=== PATIENT | female | born 1940 | race Caucasian/White ===

== ENCOUNTER → 2016-07-03 | Outpatient (CLI) | payer OTHER, MEDICARE | END | disposition home or self-care (01) | LOC: C.MAMM 08:20 | PROVIDERS: ATTEND Internal Medicine | DX: M85.80 Other specified disorders of bone density and structure, unspecified site (principal) ==

== ENCOUNTER → 2016-12-07 | Outpatient (CLI) | payer OTHER, MEDICARE ==
[2016-12-07 09:55] LABS: ALT/SGPT 23 U/L (12-78); AST/SGOT 22 U/L (15-37); BLOOD UREA NITROGEN 16 mg/dl (7-18); BUN/CREATININE RATIO 19.9 (10-20); CALCIUM 9.4 mg/dl (8.5-10.1); CARBON DIOXIDE 24 mmol/L (21-32); CHLORIDE 112 mmol/L (98-107); CHOLESTEROL 247 mg/dl (0-200); CREATININE 0.82 mg/dl (0.60-1.20); GLUCOSE 93 mg/dl (70-99); SODIUM 145 mmol/L (136-145); TRIGLYCERIDES 82 mg/dl (0-150); VERY LOW DENSITY LIPOPROT CALC 16 mg/dl
[2016-12-07 09:59] LABS: ALB/GLOB RATIO 1.2 (0.9-2); ALKALINE PHOSPHATASE 61 U/L (45-117); CHOLESTEROL/HDL RATIO 3.3; HDL CHOLESTEROL 76 mg/dl; LDL CHOLESTEROL CALCULATED 155 mg/dl
== END | disposition home or self-care (01) ==
LOC: C.LAB1850 07:21
PROVIDERS: ATTEND Internal Medicine
DX: E78.5 Hyperlipidemia, unspecified (principal)

== ENCOUNTER → 2017-05-06 | Outpatient (CLI) | payer OTHER, MEDICARE ==
[2017-05-06 10:35] LABS: ALT/SGPT 23 U/L (12-78); AST/SGOT 22 U/L (15-37); BLOOD UREA NITROGEN 13 mg/dl (7-18); BUN/CREATININE RATIO 16.7 (10-20); CALCIUM 9.4 mg/dl (8.5-10.1); CARBON DIOXIDE 28 mmol/L (21-32); CHLORIDE 105 mmol/L (98-107); CHOLESTEROL 253 mg/dl (0-200); CREATININE 0.78 mg/dl (0.60-1.20); GLUCOSE 91 mg/dl (70-99); POTASSIUM 3.7 mmol/L (3.5-5.1); SODIUM 142 mmol/L (136-145); TRIGLYCERIDES 174 mg/dl (0-150); VERY LOW DENSITY LIPOPROT CALC 35 mg/dl
[2017-05-06 10:37] LABS: ALKALINE PHOSPHATASE 67 U/L (45-117); CHOLESTEROL/HDL RATIO 3.5; HDL CHOLESTEROL 73 mg/dl; LDL CHOLESTEROL CALCULATED 145 mg/dl
== END | disposition home or self-care (01) ==
LOC: C.LAB1850 07:20
PROVIDERS: ATTEND Internal Medicine
DX: E78.5 Hyperlipidemia, unspecified (principal); Z00.00 Encounter for general adult medical examination without abnormal findings

== ENCOUNTER → 2017-05-09 | Outpatient (CLI) | payer OTHER, MEDICARE ==
[~2017-05-09] MED LIST: GADAVIST IV PRN
--- NOTE | 2017-05-09 12:06 | DIAGNOSTIC IMAGING REPORT ---
MRI OF THE BRAIN WITHOUT AND WITH IV CONTRAST CLINICAL HISTORY: HEADACHE, NECK PAIN HISTORY OF SMALL ANEURYSM. COMPARISON STUDY: MR angiography of the head dated 08/09/2015 TECHNIQUE: MRI of the brain was performed from the vertex to the skull base utilizing various T1 and T2 weighted sequences. Following the IV administration of 5 mL of Gadavist contrast, additional enhanced images were obtained. FINDINGS: Sagittal T1, axial diffusion, proton density and T2 weighted axial, coronal FLAIR, and pre and post axial T1-weighted images were acquired. These were supplemented with post gadolinium coronal T1 weighted images. No intra or extra-axial mass lesions are visualized. Axial diffusion-weighted images reveal no evidence of acute or subacute infarction. There is no evidence of ventricular dilatation. Proton density T2-weighted and FLAIR images reveal scattered foci of increased T2 signal within the white matter, likely on a small vessel basis. There are no abnormal flow voids. There is no evidence of pathologic enhancement. IMPRESSION: 1. No acute intracranial findings 2. No evidence of acute or subacute infarction 3. No evidence of intracranial mass 4. Scattered foci of increased T2 signal within the white matter likely a small vessel basis Electronically signed by: Shawn Ortega M.D. 05/09/2017 12:05 PM Dictated Date/Time: 05/09/2017 12:03 PM
--- NOTE | 2017-05-09 12:18 | DIAGNOSTIC IMAGING REPORT ---
C-SPINE ROUTINE 4 OR 5 VIEWS CLINICAL HISTORY: HEADACHE, NECK PAIN COMPARISON STUDY: None FINDINGS: No fractures or subluxations are visualized. There are mild to moderate multilevel degenerative changes with disc space narrowing most pronounced the C4-5 through C6-7 levels. There is mild uncinate spurring with mild multilevel foraminal encroachment. IMPRESSION: 1. No fractures or subluxations identified 2. Multilevel degenerative change Electronically signed by: Shawn Ortega M.D. 05/09/2017 12:16 PM Dictated Date/Time: 05/09/2017 12:16 PM
== END | disposition home or self-care (01) ==
LOC: C.MRIBC 10:42
PROVIDERS: ATTEND Physician Assistant
DX: R51 Headache (principal); M54.2 Cervicalgia; M89.8X8 Other specified disorders of bone, other site

== ENCOUNTER 2017-06-29 15:31 | Emergency (ER) | payer OTHER, MEDICARE ==
[~2017-06-29] VITALS: Ht 154.9 cm; Wt 55.6 kg
[2017-06-29 15:40] VITALS: TEMP 37; Ht 154.9 cm; Wt 55.6 kg
[2017-06-29] MEDS ORDERED: SODIUM CHLORIDE 0.9% 1000ML 1,000 ML IV STA (15:50)
[2017-06-29] MEDS ORDERED: ALBUT/IPRATROP 3MG/0.5MG NEB 3 ML VIAL INH STA (15:50)
--- NOTE | 2017-06-29 16:05 | EMERGENCY ROOM VISIT NOTE ---
History Report prepared by Jayme: Kathy Landa Under the Supervision of: Dr. Tahir Menendez M.D. First contact with patient: 15:45 Chief Complaint: RESPIRATORY PROBLEMS Stated Complaint: CHEST INFECTION, COPD History of Present Illness The patient is a 76 year old female who presents to the Emergency Room with complaints of constant cough and chest congestion beginning two days ago. The patient has been caring for her who currently has bacterial pneumonia. She notes fatigue but denies any chest tightness or diarrhea. The patient has a history of COPD. The patient has a back up Z-pack which she started yesterday. The patient also reports taking Lexapro and Mucinex for her symptoms. The patient states she was never a smoker but her was. She denies any recent prednisone use. The patient states her COPD is well controlled. The patient has a history of breast cancer which she has been in remission for 5 years. The patient's cancer was treated using surgery and radiation therapy. Source of History: patient Onset: two days ago Position: other (generalized) Quality: other (cough and chest congestion) Timing: constant Associated Symptoms: + cough, + fatigue, No fevers, No chest pain Review of Systems See HPI for pertinent positives and negatives. A total of ten systems were reviewed and were otherwise negative. Past Medical & Surgical Medical Problems: (1) Breast cancer (2) COPD (chronic obstructive pulmonary disease) Family History Patient reports no known family medical history. Social History Smoking Status: Never Smoker Marital Status: Housing Status: lives with significant other Occupation Status: retired Current/Historical Medications Scheduled Aspirin (Aspirin Ec), 81 MG PO Q2D Azithromycin (Zithromax Z-Jonel), 1 PKT PO UD Cholecalciferol (Vitamin D 1000 Unit), 1,000 INTER.UNIT PO Q2D Escitalopram (Lexapro), 10 MG PO DAILY Fish Oil (Ethel-3), 1 CAP PO DAILY Prednisone (Prednisone), 3 TAB PO DAILY Ranitidine Hcl (Zantac), 150 MG PO HS Sumatriptan Succinate (Imitrex), 100 MG PO PRN Scheduled PRN Diclofenac Sodium (Topical) (Voltaren 1% Top Gel), 1 APPLN TOP BID PRN for Pain Probiotic Product (Probiotic), 1 CAP PO DAILY PRN for SICKNESS [Proair], 2 PUFF INH Q4 PRN for SOB/Wheezing Allergies Coded Allergies: Sulfa Antibiotics (Verified Allergy, Severe, ITCHY, CAN'T SLEEP, 06/29/17) Physical Exam Vital Signs Date Time Temp Pulse Resp B/P (MAP) Pulse Ox O2 Delivery O2 Flow Rate FiO2 06/29/17 18:26 73 20 166/81 95 06/29/17 16:57 77 16 171/93 95 Room Air 06/29/17 16:15 94 Room Air 06/29/17 16:12 72 06/29/17 15:40 37.0 90 18 178/96 96 Room Air Physical Exam GENERAL: Awake, alert, well-appearing, in no distress HENT: Normocephalic, atraumatic. Oropharynx unremarkable. Dry MM. EYES: Normal conjunctiva. Sclera non-icteric. NECK: Supple. No nuchal rigidity. FROM. No JVD. RESPIRATORY: Scant wheezing in right base but otherwise clear. CARDIAC: Regular rate, normal rhythm. Extremities warm and well perfused. Pulses equal. ABDOMEN: Soft, non-distended. No tenderness to palpation. No rebound or guarding. No masses. RECTAL: Deferred. MUSCULOSKELETAL: Chest examination reveals no tenderness. The back is symmetrical on inspection without obvious abnormality. There is no CVA tenderness to palpation. No joint edema. LOWER EXTREMITIES: Calves are equal size bilaterally and non-tender. No edema. No discoloration. NEURO: Normal sensorium. No sensory or motor deficits noted. SKIN: No rash or jaundice noted. Medical Decision & Procedures ER Provider Diagnostic Interpretation: Radiology results as stated below per my review and radiologist interpretation: CHEST ONE VIEW PORTABLE FINDINGS: The heart is at the upper limits of normal in size. There is a thoracolumbar scoliosis. There is no failure. There is no focal pulmonary consolidation. There are no pleural effusions. There is a calcified left upper lobe granuloma. There are surgical clips projected over the left breast.[ IMPRESSION: No active disease in the chest. Electronically signed by: Shawn Ortega M.D. Laboratory Results 06/29/17 16:10 Red Blood Count 4.71, Mean Corpuscular Volume 95.3, Mean Corpuscular Hemoglobin 32.3, Mean Corpuscular Hemoglobin Concent 33.9, Mean Platelet Volume 10.8, Neutrophils (%) (Auto) 71.5, Lymphocytes (%) (Auto) 15.5, Monocytes (%) (Auto) 10.2, Eosinophils (%) (Auto) 1.8, Basophils (%) (Auto) 0.8, Neutrophils # (Auto ) 3.65, Lymphocytes # (Auto) 0.79, Monocytes # (Auto) 0.52, Eosinophils # (Auto ) 0.09, Basophils # (Auto) 0.04 06/29/17 16:10 Test 06/29/17 16:10 06/29/17 16:24 White Blood Count 5.10 K/uL (4.8-10.8) Red Blood Count 4.71 M/uL (4.2-5.4) Hemoglobin 15.2 g/dL (12.0-16.0) Hematocrit 44.9 % (37-47) Mean Corpuscular Volume 95.3 fL (80-100) Mean Corpuscular Hemoglobin 32.3 pg (25-34) Mean Corpuscular Hemoglobin Concent 33.9 g/dl (32-36) Platelet Count 144 K/uL (130-400) Mean Platelet Volume 10.8 fL (7.4-10.4) Neutrophils (%) (Auto) 71.5 % Lymphocytes (%) (Auto) 15.5 % Monocytes (%) (Auto) 10.2 % Eosinophils (%) (Auto) 1.8 % Basophils (%) (Auto) 0.8 % Neutrophils # (Auto) 3.65 K/uL (1.4-6.5) Lymphocytes # (Auto) 0.79 K/uL (1.2-3.4) Monocytes # (Auto) 0.52 K/uL (0.11-0.59) Eosinophils # (Auto) 0.09 K/uL (0-0.5) Basophils # (Auto) 0.04 K/uL (0-0.2) RDW Standard Deviation 48.1 fL (36.4-46.3) RDW Coefficient of Variation 13.8 % (11.5-14.5) Immature Granulocyte % (Auto) 0.2 % Immature Granulocyte # (Auto) 0.01 K/uL (0.00-0.02) Anion Gap 6.0 mmol/L (3-11) Est Creatinine Clear Calc Drug Dose 38.2 ml/min Estimated GFR () 68.7 Estimated GFR (Non- 59.3 BUN/Creatinine Ratio 12.9 (10-20) Calcium Level 9.1 mg/dl (8.5-10.1) Total Bilirubin 0.4 mg/dl (0.2-1) Direct Bilirubin < 0.1 mg/dl (0-0.2) Aspartate Amino Transf (AST/SGOT) 19 U/L (15-37) Alanine Aminotransferase (ALT/SGPT) 22 U/L (12-78) Alkaline Phosphatase 73 U/L (45-117) Troponin I < 0.015 ng/ml (0-0.045) Total Protein 7.7 gm/dl (6.4-8.2) Albumin 3.7 gm/dl (3.4-5.0) Lipase 183 U/L (73-393) Influenza Type A (RT-PCR) Neg for Influ A (NEG) Influenza Type A Antigen Neg for Influ A (NEG) Influenza Type B Antigen Neg for Influ B (NEG) Influenza Type B (RT-PCR) Neg for Influ B (NEG) Laboratory results reviewed by me Medications Administered Medications (Trade) Dose Ordered Sig/Mary Ann Route Start Time Stop Time Status Last Admin Dose Admin Albuterol/ Ipratropium (Duoneb) 3 ml NOW STAT INH 06/29/17 15:50 06/29/17 15:56 DC 06/29/17 16:23 3 ML Prednisone (PredniSONE TAB) 60 mg NOW STAT PO 06/29/17 15:50 06/29/17 15:56 DC 06/29/17 16:21 60 MG ED Course 1548: The patient was evaluated in room C9. A complete history and physical exam was performed. 1550: Ordered Prednisone 60 mg PO, Duoneb 3 ml INH, Sodium Chloride 1000 ml @ 999 mls/hr IV. 1725: The patient is resting comfortably. 1817: I reevaluated the patient. Discussed results and discharge instructions: She verbalized understanding and agreement. The patient is ready for discharge. Medical Decision I reviewed the patient's past medical history, medications, and the nursing notes as described above. Differential diagnoses include: pneumonia, bronchitis, COPD, ACS, PE, URI influenza, viral syndrome. The patient is a 76-year-old woman with a past medical history of COPD who presents emergency department with cough congestion per hpi. Arrival the patient is relatively well-appearing, no acute distress, afebrile stable vital signs. On exam the patient has scant wheeze to the right base but otherwise clear. Chest x-ray negative. Abdomen otherwise unremarkable including WBC within normal limits and influenza screen negative. Feeling improved by single neb. Thus, we'll treat with a course of prednisone and patient will continue her current azithromycin. Findings and plan for follow-up reviewed with patient. Patient agreeable and d/c'd per discharge instructions. Medication Reconcilliation Current Medication List: was personally reviewed by me Blood Pressure Screening Patient's blood pressure: Elevated blood pressure Blood pressure disposition: Elevated BP felt to be situational Impression Primary Impression: Bronchitis Scribe Attestation The scribe's documentation has been prepared under my direction and personally reviewed by me in its entirety. I confirm that the note above accurately reflects all work, treatment, procedures, and medical decision making performed by me. Departure Information Dispostion Home / Self-Care Prescriptions Prednisone (Prednisone) 20 Mg Tab 3 TAB PO DAILY for 4 Days, #12 TAB FOR 4 DAYS Prov: Tahir Menendez M.D. 06/29/17 Referrals RV. Mathur MD (PCP) Forms HOME CARE DOCUMENTATION FORM, IMPORTANT VISIT INFORMATION, WORK / SCHOOL INSTRUCTIONS Patient Instructions ED Bronchitis Asthmatic, My [facility] Additional Instructions Please follow up with your primary care physician in the next 1-3 days for re- evaluation. You likely have a bronchitis. Otherwise, your exam, EKG, chest xray, and lab results did not show signs of an emergent condition at this time. Prednisone as directed. Continue your azithromycin as prescribed. Use your inhaler 2 puffs every 4 hours as needed for cough. Of note your initial flu screen was negative, however, a reflex test is pending and if positive you will receive a phone call. Return to the emergency department for worsening symptoms as described in the accompanying instructions.
[2017-06-29 16:15] VITALS: O2SAT 94
[2017-06-29 16:26] LABS: BASO % 0.8 %; BASO ABS # 0.04 K/uL (0-0.2); EOS % 1.8 %; EOS ABS # 0.09 K/uL (0-0.5); HEMATOCRIT 44.9 % (37-47); HEMOGLOBIN 15.2 g/dL (12.0-16.0); IG# 0.01 K/uL (0.00-0.02); LYMPH % 15.5 %; LYMPH ABS # 0.79 K/uL (1.2-3.4); MEAN CELL VOLUME 95.3 fL (80-100); MEAN CORPUSCULAR HEMOGLOBIN 32.3 pg (25-34); MEAN CORPUSCULAR HGB CONC 33.9 g/dl (32-36); MEAN PLATELET VOLUME 10.8 fL (7.4-10.4); MONO % 10.2 %; MONO ABS # 0.52 K/uL (0.11-0.59); NEUT % 71.5 %; NEUT ABS # 3.65 K/uL (1.4-6.5); PLATELET COUNT 144 K/uL (130-400); RED CELL DISTRIBUTION WIDTH CV 13.8 % (11.5-14.5); RED CELL DISTRIBUTION WIDTH SD 48.1 fL (36.4-46.3)
--- NOTE | 2017-06-29 16:42 | DIAGNOSTIC IMAGING REPORT ---
CHEST ONE VIEW PORTABLE CLINICAL HISTORY: Atypical chest pain COMPARISON STUDY: No previous studies for comparison. FINDINGS: The heart is at the upper limits of normal in size. There is a thoracolumbar scoliosis. There is no failure. There is no focal pulmonary consolidation. There are no pleural effusions. There is a calcified left upper lobe granuloma. There are surgical clips projected over the left breast.[ IMPRESSION: No active disease in the chest. Electronically signed by: Shawn Ortega M.D. 06/29/2017 4:40 PM Dictated Date/Time: 06/29/2017 4:40 PM
[2017-06-29 16:48] LABS: ALBUMIN 3.7 gm/dl (3.4-5.0); ALT/SGPT 22 U/L (12-78); AST/SGOT 19 U/L (15-37); BLOOD UREA NITROGEN 12 mg/dl (7-18); CALCIUM 9.1 mg/dl (8.5-10.1); CARBON DIOXIDE 28 mmol/L (21-32); CREATININE 0.93 mg/dl (0.60-1.20); GLUCOSE 105 mg/dl (70-99); LIPASE 183 U/L (73-393); POTASSIUM 3.4 mmol/L (3.5-5.1); SODIUM 140 mmol/L (136-145)
[2017-06-29 16:53] LABS: ALKALINE PHOSPHATASE 73 U/L (45-117); TOTAL PROTEIN 7.7 gm/dl (6.4-8.2)
[2017-06-29] MEDS ORDERED: AZITTAB PO (16:57)
[2017-06-29] MEDS ORDERED: CHOL100027 PO (16:57)
[2017-06-29] MEDS ORDERED: RANI150T3 PO (16:57)
[2017-06-29] MEDS ORDERED: PROAIR INH (16:57)
[2017-06-29] MEDS ORDERED: OMEG10007 PO (16:57)
[2017-06-29] MEDS ORDERED: ESCI10TA17 PO (16:57)
[2017-06-29] MEDS ORDERED: MISCCAP80 PO (16:57)
[2017-06-29] MEDS ORDERED: ASPI81TA28 PO (16:57)
[2017-06-29] MEDS ORDERED: SUMA100T16 PO (16:57)
[2017-06-29] MEDS ORDERED: DICL1GEL12 TOP (16:57)
[2017-06-29 17:13] LABS: INFLUENZA B ANTIGEN Neg for Influ B (NEG)
[2017-06-29] MEDS ORDERED: PRED20TA PO (18:03)
[2017-06-29 18:26] VITALS: BP 166/81; PULSE 73; O2SAT 95
[2017-06-29 18:32] LABS: INFLUENZA A PCR Neg for Influ A (NEG); INFLUENZA B PCR Neg for Influ B (NEG)
== END 2017-06-29 18:25 | disposition home or self-care (01) ==
LOC: C.EDB 15:32 → C.EDC 18:25
DX: J40 Bronchitis, not specified as acute or chronic (principal); J44.9 Chronic obstructive pulmonary disease, unspecified; Z85.3 Personal history of malignant neoplasm of breast; Z79.82 Long term (current) use of aspirin; Z79.899 Other long term (current) drug therapy; Z88.2 Allergy status to sulfonamides

== ENCOUNTER → 2017-09-24 | Outpatient (CLI) | payer OTHER, MEDICARE ==
[~2017-09-24] MED LIST changes: +ASPI81TA28 PO; +AZITTAB PO; +CHOL100027 PO; +DICL1GEL12 TOP; +ESCI10TA17 PO; -GADAVIST IV PRN; +MISCCAP80 PO; +OMEG10007 PO; +PROAIR INH; +RANI150T3 PO; +SUMA100T16 PO
== END | disposition home or self-care (01) ==
LOC: C.LAB1850 15:53
PROVIDERS: ATTEND Physician Assistant
DX: T14.8XXA Other injury of unspecified body region, initial encounter (principal); W57.XXXA Bitten or stung by nonvenomous insect and other nonvenomous arthropods, initial encounter

== ENCOUNTER 2019-12-26 10:27 | Inpatient (IN) ==
[2019-12-26] MEDS ORDERED: NITROGLYCERIN SL 0.4 MG/TAB TAB SL PRN ×2 (10:46→13:49)
[2019-12-26] MEDS ORDERED: ASPIRIN CHEW 324 MG PO STA (10:46)
--- NOTE | 2019-12-26 10:51 | Emergency Department Note ---
History of Present Illness General Chief Complaint: Chest Pain Stated Complaint: CHEST PAIN Time Seen by Provider: 12/26/19 10:37 History of Present Illness Provider Complaint: chest pain Onset (ago): week(s) Onset (Weeks): 1 Duration: intermittent Onset: during exertion Pain Location: substernal Pain Radiation: RUE and LUE Severity: mild Current Pain Intensity: 2 Quality: + heaviness Relieved By: + rest Exacerbated By: + exertion Context: no recent illness, no recent surgery, no recent immobilization, no recent travel, no trauma/injury, no new medications and no history of DVT/PE Associated symptoms: no nausea, no vomiting, no diaphoresis, no dyspnea, no sense of impending doom, no syncope, no palpitations, no fever, no cough and no leg swelling Home Medications Home Medications Medication Instructions Recorded Confirmed Type escitalopram oxalate 10 mg tablet 10 mg PO DAILY #90 tab 01/26/19 12/26/19 Rx cholecalciferol (vitamin D3) 25 1,000 unit PO Q OTHER DAY tab 04/15/19 12/26/19 History mcg (1,000 unit) tablet omega 5-[id number]-izc-fish oil 1,000 mg 1 cap PO Q OTHER DAY cap 04/15/19 12/26/19 History (120 mg-180 mg) capsule albuterol sulfate 90 mcg/actuation 1 - 2 puffs INH Q4H PRN #8.5 gm 09/04/19 12/26/19 Rx aerosol inhaler famotidine 20 mg tablet 20 mg PO BID #30 tab 09/07/19 12/26/19 Rx Allergies Allergy/AdvReac Type Severity Reaction Status Date / Time Sulfa (Sulfonamide Allergy Severe ITCHY, Verified 12/26/19 11:12 Antibiotics) CAN'T SLEEP lisinopril [From Zestril] AdvReac Verified 12/26/19 11:12 tolterodine [From Detrol] AdvReac Verified 12/26/19 11:12 Past Med/Surg History Medical History Anxiety (Chronic) Arthralgia (Chronic) Cerebral arterial aneurysm (Chronic) Dry eye syndrome of both eyes (Chronic) Headache (Chronic) HX: breast cancer (Chronic) Hyperlipidemia (Chronic) Migraine with aura (Chronic) Right shoulder pain (Chronic) Surgical History H/O lumpectomy (Chronic) H/O: hysterectomy (Chronic) S/P hysterectomy with oophorectomy Family History Father Alcoholism Colorectal cancer Hypertension Mother Alzheimer disease Grandfather (Paternal) Myocardial infarction Other Family history non-contributory Denies family history of Ovarian cancer Prostate cancer Breast cancer Social History Preferred Language: Bahamian Communication Ability: Effective Hearing Ability: Use of Hearing Aid Kick Press Operator Required: No Beliefs That Will Affect Care: None marital status: Current Living Situation: Spouse current occupational status: retired Feels Safe at Home: Yes Smoking Status: Never smoker Hx Alcohol Use: No (couple of beers a week) Hx Substance Use: No Dental Care, Regularly: Yes Physical Activity Frequency: 5-6 Times per Week Seatbelt Use: always Sunscreen Use: Yes Review of Systems A total of 10 systems reviewed and were otherwise negative Physical Exam Vital Signs Vital Signs - 24 hr 12/26/19 10:34 12/26/19 10:47 12/26/19 10:54 Temperature 36.8 C Temperature Source Oral Pulse Rate 80 Pulse Rate [Apical] 75 Respiratory Rate 18 18 Respiratory Effort / Characteristics Respiratory Depth Respiratory Pattern Blood Pressure 207/100 H Blood Pressure [Left Arm] 214/114 H Blood Pressure Mean 135 Blood Pressure Mean [Left Arm] 147 Pulse Oximetry 96 98 95 Oxygen Delivery Method Room Air Room Air Room Air Sepsis Recent Fever Within 48 Hours No Sepsis New/Unexplained Change in Mental Status No Sepsis Action Taken by Nursing No Action Required 12/26/19 11:05 12/26/19 11:59 Temperature Temperature Source Pulse Rate Pulse Rate [Apical] 88 63 Respiratory Rate 18 Respiratory Effort / Characteristics Non-Labored Spontaneous Respiratory Depth Normal Respiratory Pattern Regular Blood Pressure Blood Pressure [Left Arm] 139/70 147/83 H Blood Pressure Mean Blood Pressure Mean [Left Arm] 93 104 Pulse Oximetry 94 Oxygen Delivery Method Room Air Sepsis Recent Fever Within 48 Hours Sepsis New/Unexplained Change in Mental Status Sepsis Action Taken by Nursing Physical Exam GENERAL: She is oriented to person, place, and time. She appears well-developed and well-nourished. She does not appear distressed. HENT: Exam performed. -Head: Normocephalic and atraumatic. -Right Ear: External ear normal. No mastoid tenderness. -Left Ear: External ear normal. No mastoid tenderness. -Mouth/Throat: The oropharynx is clear and moist. No trismus in the jaw. No dental abscesses or uvula swelling. No oropharyngeal exudate or tonsillar abscesses. EYES: Conjunctivae and EOM are normal. Pupils are equal, round, and reactive to light. Right eye exhibits no discharge. Left eye exhibits no discharge. No scleral icterus. NECK: Normal range of motion. Neck supple. No JVD present. No spinous process tenderness present. No carotid bruit present. No rigidity. No tracheal deviation and normal range of motion present. No Brudzinski's sign and no Kernig's sign noted. CV: Normal rate, regular rhythm, normal heart sounds and intact distal pulses. There is no peripheral edema. Palpable radial pulses bue. PULM/CHEST: Effort normal and breath sounds normal. No respiratory distress. No stridor. She has no wheezes. She has no rales. -Chest Wall: She exhibits no tenderness. ABD: The abdomen is soft. Bowel sounds are normal. She has no distension. No mass is present. There is no tenderness. There is no rebound, no guarding, no Godwin's sign and no tenderness at McBurney's point. Rovsig negative MUSC/SKEL: Normal range of motion. There is no peripheral edema, tenderness or deformity. LYMPH: No cervical adenopathy. NEURO: She is alert and oriented to person, place, and time. She has normal strength. No cranial nerve deficit or sensory deficit. Coordination and gait normal. GCS eye subscore is 4. GCS verbal subscore is 5. GCS motor subscore is 6. Cerebellar tests wnl. SKIN: Skin is warm and dry. She is not diaphoretic. PSYCH: She has a normal mood and affect. Behavior is normal. Judgment and thought content normal. Course Course 1041: The patient was evaluated in room A9. A complete history and physical exam was performed. Cardiac monitoring: An order was placed for continuous cardiac monitoring. The monitor shows a rate of 91 with sinus rhythm 1200: Vital signs stable. Labs and imaging within normal limits. Patient reports her symptoms have improved status post nitroglycerin. Given patient's history of exertional chest pain, improvement with nitroglycerin, her age, her history of hypertension and hyperlipidemia, the patient will be brought in for chest pain rule out ACS. Patient is in agreement with this plan. Discussed with Dr. Aggarwal [facility]ist who agrees to evaluate the patient. Administered Medications Nitroglycerin (Nitrostat) 0.4 mg SL PRN PRN PRN Reason: Chest Pain Stop: 01/25/20 10:45 Last Admin: 12/26/19 10:54 Dose: 0.4 mg Documented by: [id number] Discontinued Medications Aspirin (Aspirin) 324 mg PO NOW STA Stop: 12/26/19 10:47 Last Admin: 12/26/19 11:00 Dose: 324 mg Documented by: [id number] Medical Decision Making Laboratory Data Result diagrams: 12/26/19 10:45 12/26/19 10:45 Labs: Lab Results 12/26/19 12/26/19 12/26/19 Range/Units 10:45 10:45 10:45 WBC 9.04 (4.8-10.8) K/uL RBC 4.93 (4.2-5.4) M/uL Hgb 15.8 (12.0-16.0) g/dL Hct 47.9 H (37-47) % MCV 97.2 (80-100) fL MCH 32.0 (25-34) pg MCHC 33.0 (32-36) g/dL RDW Std Deviation 51.4 H (36.4-46.3) fL RDW Coeff of Mitra 14.6 H (11.5-14.5) % Plt Count 181 (130-400) K/uL MPV 10.7 H (7.4-10.4) fL Immature Gran % (Auto) 0.4 % Neut % (Auto) 78.5 % Lymph % (Auto) 11.1 % [place] % (Auto) 8.0 % Eos % (Auto) 1.4 % Baso % (Auto) 0.6 % Neut # (Auto) 7.10 H (1.4-6.5) K/uL Lymph # (Auto) 1.00 L (1.2-3.4) K/uL [place] # (Auto) 0.72 H (0.11-0.59) K/uL Eos # (Auto) 0.13 (0-0.5) K/uL Baso # (Auto) 0.05 (0-0.2) K/uL Immature Gran # (Auto) 0.04 H (0.00-0.02) K/uL PT 10.3 (9.0-12.0) Seconds INR 1.0 (0.9-1.1) APTT 27.1 (21.0-31.0) Seconds PTT Ratio 1.0 D-Dimer 400 (0-500) ug/L FEU Sodium 141 (136-145) mmol/L Potassium 3.8 (3.5-5.1) mmol/L Chloride 110 H (98-107) mmol/L Carbon Dioxide 28 (21-32) mmol/L Anion Gap 3.0 (3-11) BUN 15 (7-18) mg/dl Creatinine 0.77 (0.6-1.2) mg/dl Est Cr Clr Drug Dosing 46.1 ml/min Est GFR ( Amer) 84.5 Est GFR (Non-Af Amer) 72.9 BUN/Creatinine Ratio 19.9 (10-20) Glucose 97 (70-99) mg/dl Calcium 10.1 (8.5-10.1) mg/dl Troponin I < 0.015 (0-0.045) ng/ml Lipase 198 (73-393) U/L Imaging Data Chest x-ray: Radiologist's impression: XR chest 2V PA/lateral CLINICAL HISTORY: Chest pain. COMPARISON STUDY: Chest radiograph June 29, 2017. FINDINGS: Incidental note is made of severe dextroscoliosis of the lower thoracic and upper lumbar spine. This is similar to prior exam. There are left breast surgical clips. Biapical scarring is noted. There is no consolidation or evidence for pulmonary edema. Cardiac size is normal. IMPRESSION: 1. No acute cardiopulmonary findings. 2. Severe scoliosis. ACT 112: Negative or not required by law. Electronically signed by: Rodolfo Phan M.D. 12/26/2019 11:32 AM Dictated: 12/26/19 1130 Transcribed: 12/26/19 113 ECG Data Indication: chest pain Rate (beats per minute): 91 Rhythm: normal sinus Findings: + ST depression (Mild ST depression in leads II, III, V4 through V6); no ST elevation Change: no significant change (No significant change from the EKG done in December 2018) MDM Narrative 1041: The patient was evaluated in room A9. A complete history and physical exam was performed. Cardiac monitoring: An order was placed for continuous cardiac monitoring. The monitor shows a rate of 91 with sinus rhythm 1200: Vital signs stable. Labs and imaging within normal limits. Patient reports her symptoms have improved status post nitroglycerin. Given patient's history of exertional chest pain, improvement with nitroglycerin, her age, her history of hypertension and hyperlipidemia, the patient will be brought in for chest pain rule out ACS. Patient is in agreement with this plan. Discussed with Dr. Aggarwal [facility] hospitalist who agrees to evaluate the patient. Impression & Plan Chest pain Discharge Plan Visit Data Chief Complaint: Chest Pain Stated Complaint: CHEST PAIN ED Provider: Joaquin Cherry Discharge Problem: Chest pain Patient Disposition: Being Evaluated by Hospitalist Forms Stand Alone Forms: [facility] Prescriptions Prescriptions: No Action escitalopram oxalate 10 mg tablet 10 mg PO DAILY Qty: 90 RF: 3 albuterol sulfate [ProAir HFA] 90 mcg/actuation HFA aerosol inhaler 1 - 2 puffs INH Q4H PRN (Reason: shortness of breath) Qty: 8.5 RF: 3 cholecalciferol (vitamin D3) 1,000 unit (25 mcg) tablet 1,000 unit PO Q OTHER DAY RF: 0 omega 8-flr-odl-fish oil [Fish Oil] 1,000 mg (120 mg-180 mg) capsule 1 cap PO Q OTHER DAY RF: 0 famotidine [Pepcid] 20 mg tablet 20 mg PO BID Qty: 30 RF: 2 Referrals Referrals: Winter Dey MD [Primary Care Provider] - Discharge Problem: Chest pain Qualifiers: Chest pain type: unspecified Qualified Code(s): R07.9 - Chest pain, unspecified
[2019-12-26 10:54] LABS: Basophils # (auto) 0.05 K/uL (0-0.2); Basophils % (auto) 0.6 %; Eosinophils # (auto) 0.13 K/uL (0-0.5); Eosinophils % (auto) 1.4 %; Hematocrit (blood only) 47.9 % (37-47); Hemoglobin 15.8 g/dL (12.0-16.0); Immature Granulocytes # (auto) 0.04 K/uL (0.00-0.02); Immature Granulocytes % (auto) 0.4 %; Lymphocytes % (auto) 11.1 %; Mean Corpuscular Volume 97.2 fL (80-100); Mean Platelet Volume 10.7 fL (7.4-10.4); Monocytes # (auto) 0.72 K/uL (0.11-0.59); Neutrophils % (auto) 78.5 %; Platelet Count 181 K/uL (130-400); RDW Coefficient of Variation 14.6 % (11.5-14.5); RDW Standard Deviation 51.4 fL (36.4-46.3); Red Blood Count 4.93 M/uL (4.2-5.4); White Blood Count 9.04 K/uL (4.8-10.8)
[2019-12-26 11:04] LABS: D Dimer 400 ug/L FEU (0-500); Partial Thromboplastin Time 27.1 Seconds (21.0-31.0); Prothrombin Time 10.3 Seconds (9.0-12.0)
[2019-12-26 11:12] LABS: BUN Creatinine Ratio 19.9 (10-20); Blood Urea Nitrogen 15 mg/dl (7-18); Calcium 10.1 mg/dl (8.5-10.1); Carbon Dioxide 28 mmol/L (21-32); Chloride 110 mmol/L (98-107); Creatinine Clr Calc Pharmacy 46.1 ml/min; Est GFR (African American) 84.5; Est GFR (Non-African American) 72.9; Glucose 97 mg/dl (70-99); Lipase 198 U/L (73-393); Potassium 3.8 mmol/L (3.5-5.1); Sodium 141 mmol/L (136-145)
[2019-12-26 11:17] LABS: Troponin I < 0.015 ng/ml (0-0.045)
--- NOTE | 2019-12-26 11:33 | XRay Report ---
XR chest 2V PA/lateral CLINICAL HISTORY: Chest pain. COMPARISON STUDY: Chest radiograph June 29, 2017. FINDINGS: Incidental note is made of severe dextroscoliosis of the lower thoracic and upper lumbar sp ine. This is similar to prior exam. There are left breast surgical clips. Biapical scarring is noted. There is no consolidation or evidence for pulmonary edema. Cardiac size is normal. IMPRESSION: 1. No acute cardiopulmonary findings. 2. Severe scoliosis. ACT 112: Negative or not required by law. Electronically signed by: Rodolfo Phan M.D. 12/26/2019 11:32 AM
--- NOTE | 2019-12-26 12:05 | History & Physical Report ---
Date of Service December 26, 2019 Assessment & Plan (1) Chest pain: Patient with exertional chest pain and perhaps some mild EKG changes. Pain is resolved. Negative troponins. Will initiate aspirin therapy oxygen and will apply nitroglycerin paste if she has recurrence of her pain. Check fasting lipids in the morning order resting echocardiogram and consult interventional cardiology due to possible EKG changes to consider risk stratification in the future (2) GERD (gastroesophageal reflux disease): As an outpatient the patient's been on as needed Pepcid this will be continued on a scheduled basis in the hospital (3) Anxiety: Continue Lexapro and will offer the patient PRN lorazepam (4) DVT prophylaxis: Currently will use heparin subcu for DVT prevention in case catheterization is required to be easier to convert to parenteral heparin History of Present Illness Primary Care Provider: Winter Dey MD 79-year-old very healthy female who is been having few weeks worth of exertional chest pressure. Patient states that her chest pressure is very reproducible. She states that if she walks on a flat surface she can walk for 10 minutes before it occurs but if she walks on an incline it can occur immediately. It radiates to the inside of both upper arms also her neck and back. She does not get short of breath with this which she thinks is unusual because she has COPD. She does not get nauseous or diaphoretic. Patient typically takes very little medications does have an anxiety component taking Lexapro taking occasional Pepcid. EKG in the emergency department is sinus rhythm there may be some nonspecific ST changes inferiorly and lateral as compared to an EKG from December 2018 Allergies Allergy/AdvReac Type Severity Reaction Status Date / Time Sulfa (Sulfonamide Allergy Severe ITCHY, Verified 12/26/19 11:12 Antibiotics) CAN'T SLEEP lisinopril [From Zestril] AdvReac Verified 12/26/19 11:12 tolterodine [From Detrol] AdvReac Verified 12/26/19 11:12 Home Medications Home Medications Medication Instructions Recorded Confirmed Type escitalopram oxalate 10 mg tablet 10 mg PO DAILY #90 tab 01/26/19 12/26/19 Rx cholecalciferol (vitamin D3) 25 1,000 unit PO Q OTHER DAY tab 04/15/19 12/26/19 History mcg (1,000 unit) tablet omega 2-khw-yui-fish oil 1,000 mg 1 cap PO Q OTHER DAY cap 04/15/19 12/26/19 History (120 mg-180 mg) capsule albuterol sulfate 90 mcg/actuation 1 - 2 puffs INH Q4H PRN #8.5 gm 09/04/19 12/26/19 Rx aerosol inhaler famotidine 20 mg tablet 20 mg PO BID #30 tab 09/07/19 12/26/19 Rx Past Med/Surg History Medical History Anxiety (Chronic) Arthralgia (Chronic) Cerebral arterial aneurysm (Chronic) Dry eye syndrome of both eyes (Chronic) Headache (Chronic) HX: breast cancer (Chronic) Hyperlipidemia (Chronic) Migraine with aura (Chronic) Right shoulder pain (Chronic) Surgical History H/O lumpectomy (Chronic) H/O: hysterectomy (Chronic) S/P hysterectomy with oophorectomy Family History Father Alcoholism Colorectal cancer Hypertension Mother Alzheimer disease Grandfather (Paternal) Myocardial infarction Other Family history non-contributory Denies family history of Ovarian cancer Prostate cancer Breast cancer Social History Preferred Language: Romanian Communication Ability: Effective Hearing Ability: Use of Hearing Aid Warehouse Specialist Required: No Beliefs That Will Affect Care: None marital status: Current Living Situation: Spouse current occupational status: retired Other Information That Helps Us Care for You: No Feels Safe at Home: Yes Safety Concerns: Feels Safe At This Time Smoking Status: Never smoker Hx Alcohol Use: Yes (couple of beers a week) Alcohol type: beer Hx Substance Use: No Dental Care, Regularly: Yes Physical Activity Frequency: 5-6 Times per Week Seatbelt Use: always Sunscreen Use: Yes Review of Systems Review of Systems: Mild distress and fatigue no headache, blurry or double vision no speech or swallowing issues Substernal chest pressure and discomfort which radiates to arms and neck with exertion no shortness of breath, cough or wheezes no abdominal pain, nausea or vomiting, diarrhea or constipation no dysuria, hematuria or frequency no focal joint pain or swelling no back pain, CVA tenderness or radicular pain no bruising, bleeding or rashes no focal signs of weakness or numbness or altered sensation no complaints or anxiety or depression. Physical Exam Physical Exam: The patient appeared well nourished and normally developed. Vital signs as documented. Head exam is normocephalic atraumatic no scleral icterus Neck is without JVD, thyromegaly, or carotid bruits. Lungs are clear to auscultation, no focal loss of breath sounds Cardiac exam, Rhythm is regular.. No murmurs, rubs or gallops. Abdominal exam reveals normal bowel sounds, soft non tender, no masses Extremities are nonedematous and both pedal pulses are normal. Neurologic exam is alert and oriented, no focal loss of strength or sensation Skin is without bruises or rashes Psychologically is without concerns for anxiety or depression Results & Data Results & Data ([facility]) Vital Signs (Past 12 Hours) Vital Signs Temp Pulse Pulse Resp BP BP Pulse Ox 12/26/19 11:05 88 139/70 12/26/19 10:54 75 18 214/114 H 95 12/26/19 10:47 98 12/26/19 10:34 98.2 F 80 18 207/100 H 96 chest x-ray is unremarkable EKG sinus rhythm with some ST changes nondescript inferior laterally PG Care Time/CCT Total # of Minutes Spent Total Time Spent with Patient: Total time spent is greater than 50% in coordination of care (as documented) at patient's floor/unit and/or counseling patient: Coding Level of Care Code 00535 Initial Inpt Care Lvl 2 Diagnoses Chest pain R07.9 Chest pain type: unspecified GERD (gastroesophageal reflux disease) K21.9 Anxiety F41.9 DVT prophylaxis Z29.9 (1) Chest pain Chest pain type: unspecified Qualified Code(s): R07.9 - Chest pain, unspecified
[2019-12-26] MEDS ORDERED: ONDANSETRON INJ 2 MG/ML 2 ML VIAL IV PRN (13:49)
[2019-12-26] MEDS ORDERED: ARTIFICIAL TEARS OP PRN (13:49)
[2019-12-26] MEDS ORDERED: ACETAMINOPHEN 325 MG TAB PO PRN (13:49)
[2019-12-26] MEDS ORDERED: MoRPHine SULFATE 2 MG/ML CARP IV PRN (13:49)
[2019-12-26] MEDS ORDERED: ALUMINUM/MAGNESIUM SUSP 30 ML UDC PO PRN (13:49)
[2019-12-26] MEDS ORDERED: METOPROLOL TARTRATE 1 MG/ML VIAL IV PRN (13:49)
[2019-12-26] MEDS ORDERED: LORazepam 0.5 MG TAB PO PRN (13:49)
--- NOTE | 2019-12-26 14:39 | Electrocardiogram Report ---
Test Reason : Blood Pressure : / mmHG Vent. Rate : 091 BPM Atrial Rate : 091 BPM P-R Int : 142 ms QRS Dur : 092 ms QT Int : 348 ms P-R-T Axes : 082 054 068 degrees QTc Int : 428 ms Sinus rhythm with Premature atrial complexes Nonspecific ST abnormality Abnormal ECG When compared with ECG of 16-JAN-2019 16:58, Premature atrial complexes are now Present Confirmed by José Miguel Colvin ([id number]) on 12/26/2019 2:39:26 PM Referred By: Confirmed By:José Miguel Colvin
[2019-12-26] MEDS: HEPARIN SOD 5,000 UNIT/0.5 ML VIAL SQ SCH (20:15)
[2019-12-26] MEDS: FAMOTIDINE 20 MG TAB PO SCH (21:17)
[2019-12-27 05:15] LABS: BUN Creatinine Ratio 21.6 (10-20); Est GFR (African American) 93.2; Est GFR (Non-African American) 80.4; Potassium 3.8 mmol/L (3.5-5.1)
[2019-12-27] MEDS: HEPARIN SOD 5,000 UNIT/0.5 ML VIAL SQ SCH ×2 (07:54→20:09)
[2019-12-27] MEDS: ASPIRIN 81 MG ECTAB PO SCH (07:55)
[2019-12-27] MEDS: FAMOTIDINE 20 MG TAB PO SCH ×2 (07:55→20:21)
[2019-12-27] MEDS: ESCITALOPRAM OXALATE 10 MG TAB PO SCH (07:55)
--- NOTE | 2019-12-27 10:16 | Hospitalist Progress Note ---
Date of Service December 27, 2019 Assessment & Plan (1) Unstable angina: -with typical CP with exertion, relieved with rest, progressing over the last 3 weeks, was relieved with NTG in ER -with subtle ECG changes ST dep lat leads on admission -trop undetectable and then slightly detectable x 2 after admission -ECHO pending Appreciate Cardio consult With risk factors of age, hyperlipidemia, HTN, and COPD (from secondhand smoke). Typically, exercises/walks daily, very active and no problems previously Does have a stable cerebral aneurysm 3mm tip of basilar artyer, unchanged for > 10 years, cleared to have NSAIDs prn by Neuro as per PCP notes -plan for PROJECT CONTROL OFFICER after midnight and cath on Saturday -continue ASA -start metoprolol 12.5mg po bid today for HTN and likely CAD-titrate up as HR allows (has had sinus jose at times unless anxious) -LDL 139, TChol 226. Previous LDL as high as 180. Has been intolerant of simvastatin 10mg and lovastatin low dose -start atorvastatin 20mg daily and titrate up as tolerated especially if CAD on cath -NTG prn CP (2) Chest pain: as above, otherwise CXR negative (3) GERD (gastroesophageal reflux disease): -continue Pepcid (4) Anxiety: Continue Lexapro and PRN lorazepam as anxiety is exacerbated currently in hospital (5) Cerebral arterial aneurysm: as above, 3mm basilar artery tip, stable for 13 years (6) Chronic obstructive pulmonary disease: mod obstruction noted on PFTs from several years ago due to secondhand smoke from -albuterol prn (7) Classic migraine with aura: no acute issues (8) Hyperlipidemia: as above start atorvastatina nd watch for myalgias may need Co Q10 (9) Hypertension: As above, BPs elevated and exacerbated by anxiety start metoprolol (10) Osteopenia: continue Vit D as outpt (11) DVT prophylaxis: heparin subcu for DVT prevention Dispo -continued stay PCU for cath Saturday Admission and Anticipated Discharge Date Admission Date: December 26, 2019 Results & Data Results & Data ([facility]) Vital Signs (Past 12 Hours) Vital Signs Temp Pulse Pulse Resp BP BP Pulse Ox 12/27/19 08:00 36.7 C 84 18 178/99 H 97 12/27/19 06:05 36.8 C 12/27/19 05:20 56 L 24 12/27/19 05:10 59 L 18 12/27/19 05:00 60 19 95 12/27/19 04:58 62 13 159/82 H 96 12/27/19 04:50 51 L 16 94 12/27/19 04:40 57 L 15 93 12/27/19 04:30 57 L 16 96 12/27/19 04:20 56 L 20 92 12/27/19 04:10 57 L 14 94 12/27/19 04:00 59 L 17 95 12/27/19 03:58 60 15 164/80 H 96 12/27/19 03:50 59 L 15 95 12/27/19 03:40 58 L 14 94 12/27/19 03:30 58 L 18 94 12/27/19 03:20 58 L 19 94 12/27/19 03:10 67 17 94 12/27/19 03:00 62 16 94 12/27/19 02:58 62 17 141/65 H 94 12/27/19 02:50 69 15 94 12/27/19 02:41 94 12/27/19 02:30 61 16 94 12/27/19 02:20 62 12 95 12/27/19 02:10 62 17 96 12/27/19 02:00 55 L 17 95 12/27/19 01:58 55 L 12 154/72 H 96 12/27/19 01:50 58 L 14 92 12/27/19 01:40 56 L 21 95 12/27/19 01:30 55 L 22 94 12/27/19 01:20 55 L 14 96 12/27/19 01:10 54 L 17 95 12/27/19 01:00 54 L 17 93 12/27/19 00:58 54 L 19 151/66 H 96 12/27/19 00:50 58 L 19 93 12/27/19 00:40 59 L 18 94 12/27/19 00:30 60 17 94 12/27/19 00:20 60 17 94 12/27/19 00:10 58 L 18 95 12/27/19 00:00 57 L 18 94 12/26/19 23:58 55 L 14 146/67 H 95 12/26/19 23:50 65 18 95 12/26/19 23:40 60 18 93 12/26/19 23:30 61 17 93 12/26/19 23:20 64 17 94 07/04/20 23:10 66 24 94 12/26/19 23:08 36.8 C 12/26/19 23:00 61 17 93 12/26/19 22:58 65 19 137/67 96 12/26/19 22:50 60 20 94 12/26/19 22:40 58 L 20 94 12/26/19 22:30 57 L 17 93 12/26/19 22:20 61 17 95 PG Care Time/CCT Total # of Minutes Spent Total Time Spent with Patient: Total time spent is greater than 50% in coordination of care (as documented) at patient's floor/unit and/or counseling patient: Coding Level of Care Code 63143 Subseq Hosp Care Lvl 3 Diagnoses Unstable angina I20.0 Chest pain R07.9 Chest pain type: unspecified GERD (gastroesophageal reflux disease) K21.9 Anxiety F41.9 Cerebral arterial aneurysm I67.1 Chronic obstructive pulmonary disease J44.9 Classic migraine with aura G43.109 Hyperlipidemia E78.5 Hypertension I10 Osteopenia M85.80 DVT prophylaxis Z29.9 (1) Chest pain Chest pain type: unspecified Qualified Code(s): R07.9 - Chest pain, unspecified
[2019-12-27] MEDS: METOPROLOL TARTRATE 25 MG TAB PO SCH ×2 (11:09→20:22)
[2019-12-27] MEDS: ATORVASTATIN 20 MG TAB PO SCH (11:09)
--- NOTE | 2019-12-27 11:27 | Cardiology Consultation ---
Date of Consultation December 27, 2019 Assessment & Plan (1) Angina pectoris, crescendo: -history is classic for angina pectoris. -no need for stress testing. -would proceed with cardiac catheterization tomorrow morning. -would add low-dose metoprolol tartrate. -would add atorvastatin. (2) Abnormal ECG: -lateral ST abnormality noted at time of admission. -follow-up tracing is normal. -echocardiogram pending. (3) Hypertension: -adequate control currently. (4) Hyperlipidemia: -would start atorvastatin. History of Present Illness Attending Physician: Lissa Ace MD History of Present Illness Mrs. Bautista is an 79-year-old female admitted yesterday with a chest pain syndrome. This consultation was ordered to assist in her management. The patient is a healthy 79-year-old female whose recent history began approximately 5 days ago. The patient began to note substernal chest tightness/pressure after walking approximately 10 minutes on the level. However, if she started up a great, her symptoms occurred quickly. She noticed her discomfort to radiate to the inner aspect of both upper extremities and the posterior neck. There was no shortness of breath, nausea, vomiting, or diapho resis. Her discomfort resolves quickly with rest. This symptom complex was very reproducible. Patient also claims that she has noticed a decrease in her exercise stamina over the last month. She has never known of a cardiac event. She is very active on a daily basis going for hikes in walking. She also is careful follow a heart healthy diet. We have had a long discussion regarding the need for cardiac catheterization. The patient and her understand and agree to proceed. Past medical and surgical history 1. Hypertension 2. Hypercholesterolemia next 3. COPD 4. Migraine headaches 5. Anxiety 6. History of breast carcinoma 7. Lumpectomy 8. THIAGO/BSO 9. 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 Allergies Allergy/AdvReac Type Severity Reaction Status Date / Time Sulfa (Sulfonamide Allergy Severe ITCHY, Verified 12/26/19 11:12 Antibiotics) CAN'T SLEEP lisinopril [From Zestril] AdvReac Verified 12/26/19 11:12 tolterodine [From Detrol] AdvReac Verified 12/26/19 11:12 Home Medications Home Medications Medication Instructions Recorded Confirmed Type escitalopram oxalate 10 mg tablet 10 mg PO DAILY #90 tab 01/26/19 12/26/19 Rx cholecalciferol (vitamin D3) 25 1,000 unit PO Q OTHER DAY tab 04/15/19 12/26/19 History mcg (1,000 unit) tablet omega 3-dzu-zet-fish oil 1,000 mg 1 cap PO Q OTHER DAY cap 04/15/19 12/26/19 History (120 mg-180 mg) capsule albuterol sulfate 90 mcg/actuation 1 - 2 puffs INH Q4H PRN #8.5 gm 09/04/19 12/26/19 Rx aerosol inhaler famotidine 20 mg tablet 20 mg PO BID #30 tab 09/07/19 12/26/19 Rx Patient History Medical History Anxiety (Chronic) Arthralgia (Chronic) Cerebral arterial aneurysm (Chronic) Dry eye syndrome of both eyes (Chronic) Headache (Chronic) HX: breast cancer (Chronic) Hyperlipidemia (Chronic) Migraine with aura (Chronic) Right shoulder pain (Chronic) Surgical History H/O lumpectomy (Chronic) H/O: hysterectomy (Chronic) S/P hysterectomy with oophorectomy Family History Father Alcoholism Colorectal cancer Hypertension Mother Alzheimer disease Grandfather (Paternal) Myocardial infarction Other Family history non-contributory Denies family history of Ovarian cancer Prostate cancer Breast cancer Social History Preferred Language: Telugu Communication Ability: Effective Hearing Ability: Use of Hearing Aid 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 HEENT exam is negative. Neck is supple with full carotid upstrokes. There are no carotid bruits. Jugular venous pressure is flat at 90. There is no thyromegaly. Cardiovascular exam reveals a regular rhythm with a normal S1 and S2. No S3, S4, or murmurs are noted. Lungs are clear without rales, rhonchi, or wheezes. Abdomen is soft and nontender without bruits. Extremities reveal intact radial artery and posterior tibial pulses bilaterally. There is no peripheral edema. Results & Data ([facility]) Vital Signs (Past 12 Hours) Vital Signs Temp Pulse Pulse Resp BP BP Pulse Ox 12/27/19 08:00 36.7 C 84 18 178/99 H 97 12/27/19 06:05 36.8 C 12/27/19 05:20 56 L 24 12/27/19 05:10 59 L 18 12/27/19 05:00 60 19 95 12/27/19 04:58 62 13 159/82 H 96 12/27/19 04:50 51 L 16 94 12/27/19 04:40 57 L 15 93 12/27/19 04:30 57 L 16 96 12/27/19 04:20 56 L 20 92 12/27/19 04:10 57 L 14 94 12/27/19 04:00 59 L 17 95 12/27/19 03:58 60 15 164/80 H 96 12/27/19 03:50 59 L 15 95 12/27/19 03:40 58 L 14 94 12/27/19 03:30 58 L 18 94 12/27/19 03:20 58 L 19 94 12/27/19 03:10 67 17 94 12/27/19 03:00 62 16 94 12/27/19 02:58 62 17 141/65 H 94 12/27/19 02:50 69 15 94 12/27/19 02:41 94 12/27/19 02:30 61 16 94 12/27/19 02:20 62 12 95 12/27/19 02:10 62 17 96 12/27/19 02:00 55 L 17 95 12/27/19 01:58 55 L 12 154/72 H 96 12/27/19 01:50 58 L 14 92 12/27/19 01:40 56 L 21 95 12/27/19 01:30 55 L 22 94 12/27/19 01:20 55 L 14 96 12/27/19 01:10 54 L 17 95 12/27/19 01:00 54 L 17 93 12/27/19 00:58 54 L 19 151/66 H 96 12/27/19 00:50 58 L 19 93 12/27/19 00:40 59 L 18 94 12/27/19 00:30 60 17 94 12/27/19 00:20 60 17 94 12/27/19 00:10 58 L 18 95 12/27/19 00:00 57 L 18 94 12/26/19 23:58 55 L 14 146/67 H 95 12/26/19 23:50 65 18 95 12/26/19 23:40 60 18 93 12/26/19 23:30 61 17 93 12/26/19 23:20 64 17 94 Laboratory Results CBC notes hemoglobin 15.8, hematocrit 47.9, white count 9.04, platelet count 617190. Electrolytes noticed sodium of 142, potassium 3.8, chloride 113, bicarb 25, BUN 15, creatinine 0.71, glucose of 88. Initial troponin was less than 0.015 with follow-up values of 0.025 and 0.022. LDL cholesterol is elevated 139. HDL is elevated 67. Diagnostic Findings Initial EKG noted sinus rhythm with an occasional PAC and a nonspecific ST abnormality most pronounced in the lateral leads. Follow-up tracing noted sinus rhythm without ST abnormalities. Chest x-ray shows no acute disease. PG Care Time/CCT Total # of Minutes Spent Total Time Spent with Patient: Total time spent is greater than 50% in coordination of care (as documented) at patient's floor/unit and/or counseling patient: Coding Level of Care Code 80031 Initial Inpt Care Lvl 3 Diagnoses Angina pectoris, crescendo I20.0 Abnormal ECG R94.31 Hypertension I10 Hyperlipidemia E78.5
--- NOTE | 2019-12-27 11:55 | XCELERA ---
[id number]
--- NOTE | 2019-12-27 12:18 | Electrocardiogram Report ---
Test Reason : Blood Pressure : / mmHG Vent. Rate : 061 BPM Atrial Rate : 061 BPM P-R Int : 144 ms QRS Dur : 090 ms QT Int : 428 ms P-R-T Axes : 078 035 028 degrees QTc Int : 430 ms Normal sinus rhythm Normal ECG When compared with ECG of 26-DEC-2019 10:41, Premature atrial complexes are no longer Present Vent. rate has decreased BY [address] no longer depressed in Lateral leads T wave amplitude has increased in Lateral leads Confirmed by José Miguel Colvin ([id number]) on 12/27/2019 12:18:44 PM Referred By: REFERRED SELF Confirmed By:José Miguel Colvin
[2019-12-28 07:30] LABS: BUN Creatinine Ratio 16.9 (10-20); Calcium 9.8 mg/dl (8.5-10.1); Creatinine Clr Calc Pharmacy 47.3 ml/min; Est GFR (African American) 87.3; Est GFR (Non-African American) 75.3; Potassium 3.9 mmol/L (3.5-5.1)
[2019-12-28] MEDS: METOPROLOL TARTRATE 25 MG TAB PO SCH ×2 (07:33→21:21)
[2019-12-28] MEDS: ESCITALOPRAM OXALATE 10 MG TAB PO SCH (07:34)
[2019-12-28] MEDS: FAMOTIDINE 20 MG TAB PO SCH ×2 (07:34→21:45)
[2019-12-28] MEDS: ATORVASTATIN 20 MG TAB PO SCH (07:34)
[2019-12-28] MEDS: ASPIRIN 81 MG ECTAB PO SCH (07:34)
--- NOTE | 2019-12-28 10:51 | Cardiology Progress Note ---
Date of Service December 28, 2019 Assessment & Plan (1) Angina pectoris, crescendo: -classic history for angina pectoris. -no need for stress testing. -proceed with cardiac catheterization today. -low-dose metoprolol tartrate. -atorvastatin. (2) Abnormal ECG: -lateral ST abnormality noted at time of admission. -follow-up tracing is normal. -echocardiogram with normal LV function and no wall motion abnormalities. (3) Hypertension: -adequate control currently. -mild LVH on echocardiogram. (4) Hyperlipidemia: -atorvastatin well tolerated thus far. Admission and Anticipated Discharge Date Admission Date: December 26, 2019 Subjective The patient is resting comfortably in bed without complaints of chest pain or dyspnea. We have again reviewed the need for cardiac catheterization. Physical Exam Physical Exam: In general this is a well-developed well-nourished white female in no acute distress. HEENT exam is negative. Neck is supple with full carotid upstrokes. There are no carotid bruits. Jugular venous pressure is flat at 90. There is no thyromegaly. Cardiovascular exam reveals a regular rhythm with a normal S1 and S2. No S3, S4, or murmurs are noted. Lungs are clear without rales, rhonchi, or wheezes. Abdomen is soft and nontender without bruits. Extremities reveal intact radial artery and posterior tibial pulses bilaterally. There is no peripheral edema. Results & Data ([facility]) Vital Signs (Past 12 Hours) Vital Signs Temp Pulse Pulse Resp BP Pulse Ox 12/28/19 07:57 160/83 H 12/28/19 07:51 36.6 C 64 18 183/81 H 95 12/28/19 03:43 36.5 C 59 L 18 160/70 H 97 12/27/19 23:25 82 12/27/19 23:15 36.7 C 57 L 18 154/76 H 96 Diagnostic Findings school lunch monitor is benign. PG Care Time/CCT Total # of Minutes Spent Total Time Spent with Patient: Total time spent is greater than 50% in coordination of care (as documented) at patient's floor/unit and/or counseling patient: Coding Level of Care Code 20184 Subseq Hosp Care Lvl 3 Diagnoses Angina pectoris, crescendo I20.0 Abnormal ECG R94.31 Hypertension I10 Hyperlipidemia E78.5
[2019-12-28] MEDS ORDERED: HEPARIN (PORCINE) 1000 UNIT/ML 10 ML (CATH LAB USE ONLY) ONE (16:06)
[2019-12-28] MEDS ORDERED: NiCARDipine HCL INJ 2.5 MG/ML 10 ML AMP ONE (16:06)
[2019-12-28] MEDS ORDERED: MIDAZOLAM HCL 1 MG/ML 2ML VIAL ONE (16:07)
[2019-12-28] MEDS ORDERED: fentaNYL citrate 100 MCG/2 ML VIAL ONE (16:07)
[2019-12-28] MEDS ORDERED: NITROGLYCERIN/D5W 100MCG/ML 20ML SYR ONE (16:07)
[2019-12-28] MEDS: HEPARIN SOD 5,000 UNIT/0.5 ML VIAL SQ SCH ×2 (17:17→23:38)
--- NOTE | 2019-12-28 22:19 | Hospitalist Progress Note ---
Date of Service December 28, 2019 Assessment & Plan (1) Unstable angina: -with typical CP with exertion, relieved with rest, progressing over the last 3 weeks, was relieved with NTG in ER -with subtle ECG changes ST dep lat leads on admission -trop undetectable and then slightly detectable x 2 after admission -ECHO: EF 65%, no wall motion abnormalities, no valve disease Left heart cath on 12/27: one GORDY placed in the RCA tolerated well, stable condition back to PCU observe overnight, likely home tomorrow With risk factors of age, hyperlipidemia, HTN, and COPD (from secondhand smoke). Typically, exercises/walks daily, very active and no problems previously Does have a stable cerebral aneurysm 3mm tip of basilar artyer, unchanged for > 10 years, cleared to have NSAIDs prn by Neuro as per PCP notes -plan for [employer] after midnight and cath on Saturday -continue dual anti-platelet therapy -continue metoprolol 12.5mg po bid -LDL 139, TChol 226. Previous LDL as high as 180. Has been intolerant of simvastatin 10mg and lovastatin low dose -start atorvastatin 20mg daily and titrate up as tolerated -NTG prn CP (2) Chest pain: as above, otherwise CXR negative (3) GERD (gastroesophageal reflux disease): -continue Pepcid (4) Anxiety: Continue Lexapro and PRN lorazepam as anxiety is exacerbated currently in hospital (5) Cerebral arterial aneurysm: as above, 3mm basilar artery tip, stable for 13 years (6) Chronic obstructive pulmonary disease: mod obstruction noted on PFTs from several years ago due to secondhand smoke from -albuterol prn (7) Classic migraine with aura: no acute issues (8) Hyperlipidemia: as above start atorvastatin and watch for myalgias may need Co Q10 (9) Hypertension: As above, BPs elevated and exacerbated by anxiety start metoprolol (10) Osteopenia: continue Vit D as outpt (11) DVT prophylaxis: heparin subcu for DVT prevention Dispo - observe over night after LHC and GORDY, likely home tomorrow Admission and Anticipated Discharge Date Admission Date: December 26, 2019 Subjective patient feeling fine, no chest pain went for heart cath in afternoon found to have significant stenosis in RCA, successful GORDY placed stable after procedure, will keep overnight d/w Dr. Colvin this morning and Dr. Major after procedure spoke with her in the room Review of Systems Review of Systems: All systems reviewed & are unremarkable except as noted in HPI & below Physical Exam Constitutional: WD/WN, vitals as above Eyes: PERRL, conjunctivae normal, anicteric sclerae ENMT: external ear and nose normal, oropharynx normal Neck: trachea midline, no thyromegaly Respiratory: normal respiratory effort, lungs clear to auscultation Cardiovascular: RRR, no murmur, no edema Gastrointestinal (Abdomen): normal bowel sounds, soft, nontender, no hepatosplenomegaly Musculoskeletal: no cyanosis or clubbing, extremities motor strength 5/5 Skin: no rashes, warm and dry Neurologic: patellar DTR's 2+ bilat, sensation intact and PERRL, EOMI, accommodation nl, no face palsy, no dysarthria Psychiatric: A+Ox3, euthymic affect Lymphatic: no cervical or axillary lymphadenopathy Results & Data Results & Data ([facility]) Vital Signs (Past 12 Hours) Vital Signs Temp Pulse Pulse Resp BP Pulse Ox 12/28/19 22:00 86 16 142/79 H 94 12/28/19 21:30 85 16 124/78 94 12/28/19 19:30 90 16 156/79 H 94 12/28/19 19:00 90 16 152/80 H 95 12/28/19 18:23 81 16 147/74 H 94 12/28/19 18:00 75 20 134/84 94 12/28/19 17:55 71 20 138/80 96 12/28/19 17:35 36.6 C 68 18 147/84 H 95 12/28/19 14:20 73 12/28/19 14:00 36.7 C 80 18 178/87 H 95 12/28/19 11:56 36.4 C L 59 L 16 156/79 H 94 Laboratory Results Laboratory Results - last 24 hr 12/28/19 12/28/19 06:22 17:11 Activ Coag Time Kaolin 323 H Sodium 141 Potassium 3.9 Chloride 109 H Carbon Dioxide 28 Anion Gap 4.0 BUN 13 Creatinine 0.75 Est Cr Clr Drug Dosing 47.3 Est GFR ( Amer) 87.3 Est GFR (Non-Af Amer) 75.3 BUN/Creatinine Ratio 16.9 Glucose 82 Calcium 9.8 Medications Administered Current Inpatient Medications Acetaminophen (Tylenol) 650 mg PO Q4H PRN PRN Reason: Pain or Fever Stop: 01/25/20 13:48 Last Admin: 12/27/19 15:38 Dose: 650 mg Documented by: Al Hydrox/Mg Hydrox/Simethicone (Maalox) 15 ml PO Q4H PRN PRN Reason: Dyspepsia Stop: 01/25/20 13:48 Artificial Tears (Artificial Tears) 3 drops OP Q1H PRN PRN Reason: dry eye Stop: 01/25/20 13:48 Aspirin (Ecotrin Ectab) [facility] Stop: 01/26/20 08:59 Last Admin: 12/28/19 07:34 Dose: 81 mg Documented by: Atorvastatin Calcium (Lipitor) 20 mg PO [facility] Stop: 01/26/20 10:14 Last Admin: 12/28/19 07:34 Dose: 20 mg Documented by: Escitalopram Oxalate (Lexapro Tab) 10 mg PO DAILY [facility] Stop: 01/26/20 08:59 Last Admin: 12/28/19 07:34 Dose: 10 mg Documented by: Famotidine (Pepcid) 20 mg PO BID [facility] Stop: 01/25/20 20:59 Last Admin: 12/28/19 21:45 Dose: 20 mg Documented by: Heparin Sodium (Porcine) (Heparin Sodium (Porcine)) 5,000 units SQ Q12 [facility] Stop: 01/25/20 20:59 Last Admin: 12/28/19 17:17 Dose: Not Given Documented by: Hydralazine HCl (Apresoline) 25 mg PO Q6H PRN PRN Reason: hypertension Stop: 01/25/20 20:29 Last Admin: 12/26/19 21:31 Dose: 25 mg Documented by: Lorazepam (Ativan) 0.5 mg PO Q6H PRN PRN Reason: Anxiety Stop: 01/25/20 13:48 Last Admin: 12/27/19 07:02 Dose: 0.5 mg Documented by: Metoprolol Tartrate (Lopressor) 5 mg IV Q4 PRN PRN Reason: sbp> 185, dbp >95, HR >120 Stop: 01/25/20 13:48 Metoprolol Tartrate (Lopressor) 12.5 mg PO BID [facility] Stop: 01/26/20 10:14 Last Admin: 12/28/19 21:21 Dose: 12.5 mg Documented by: Morphine Sulfate (Morphine Sulfate) 2 mg IV Q4 PRN PRN Reason: Pain Stop: 01/09/20 13:48 Nitroglycerin (Nitrostat) 0.4 mg SL UD PRN PRN Reason: Chest Pain Stop: 01/25/20 13:48 Ondansetron HCl (Zofran) 4 mg IV Q6H PRN PRN Reason: Nausea Stop: 01/25/20 13:48 PG Care Time/CCT Total # of Minutes Spent Total Time Spent with Patient: Total time spent is greater than 50% in coordination of care (as documented) at patient's floor/unit and/or counseling patient: Coding Level of Care Code 22052 Subseq Hosp Care Lvl 2 Diagnoses Unstable angina I20.0 Chest pain R07.9 Chest pain type: unspecified GERD (gastroesophageal reflux disease) K21.9 Anxiety F41.9 Cerebral arterial aneurysm I67.1 Chronic obstructive pulmonary disease J44.9 Classic migraine with aura G43.109 Hyperlipidemia E78.5 Hypertension I10 Osteopenia M85.80 DVT prophylaxis Z29.9 (1) Chest pain Chest pain type: unspecified Qualified Code(s): R07.9 - Chest pain, unspecified
--- NOTE | 2019-12-28 23:11 | Pre Anesthesia Assessment ---
Date of Service December 28, 2019 Pre Sedation Assessment Vital Signs Temp Pulse Pulse Resp BP Pulse Ox 12/28/19 22:00 86 16 142/79 H 94 12/28/19 21:30 85 16 124/78 94 12/28/19 19:30 90 16 156/79 H 94 12/28/19 19:00 90 16 152/80 H 95 12/28/19 18:23 81 16 147/74 H 94 12/28/19 18:00 75 20 134/84 94 12/28/19 17:55 71 20 138/80 96 12/28/19 17:35 97.9 F 68 18 147/84 H 95 12/28/19 14:20 73 12/28/19 14:00 98.1 F 80 18 178/87 H 95 12/28/19 11:56 97.5 F L 59 L 16 156/79 H 94 12/28/19 08:00 67 12/28/19 07:57 160/83 H 12/28/19 07:51 97.9 F 64 18 183/81 H 95 12/28/19 03:43 97.7 F 59 L 18 160/70 H 97 12/27/19 23:25 82 12/27/19 23:15 98.1 F 57 L 18 154/76 H 96 Cardiovascular RRR, no murmur, no edema Respiratory normal respiratory effort, lungs clear to auscultation Pre-Sedation Airway Assessment Smoking Status: Never smoker Hx Sleep Apnea: No Short, Thick Neck: No Thyromental Distance: > or= 3.5 Finger Breadths Mallampati Class: II ASA: ASA2 NPO Status Date of Last Intake of Fluids: 12/27/19 Time of Last Intake of Fluids: 16:30 Date of Last Intake of Solid Food: 12/27/19 Time of Last Intake of Solid Foods: 16:30 Procedure Planning Contraindications for Sedation: none Current Medications Reviewed: Yes Notes The planned sedation has been discussed with the patient. Informed Consent was obtained. I have identified the patient, determined the appropriateness of sedation and have assessed the patient immediately prior to the procedure. All medicine(s) and interventions are by my order.
--- NOTE | 2019-12-28 23:11 | Post Anesthesia Assessment ---
Date of Service December 28, 2019 Post Sedation Assessment Vital Signs Temp Pulse Pulse Resp BP Pulse Ox 12/28/19 22:00 86 16 142/79 H 94 12/28/19 21:30 85 16 124/78 94 12/28/19 19:30 90 16 156/79 H 94 12/28/19 19:00 90 16 152/80 H 95 12/28/19 18:23 81 16 147/74 H 94 12/28/19 18:00 75 20 134/84 94 12/28/19 17:55 71 20 138/80 96 12/28/19 17:35 97.9 F 68 18 147/84 H 95 12/28/19 14:20 73 12/28/19 14:00 98.1 F 80 18 178/87 H 95 12/28/19 11:56 97.5 F L 59 L 16 156/79 H 94 12/28/19 08:00 67 12/28/19 07:57 160/83 H 12/28/19 07:51 97.9 F 64 18 183/81 H 95 12/28/19 03:43 97.7 F 59 L 18 160/70 H 97 12/27/19 23:25 82 12/27/19 23:15 98.1 F 57 L 18 154/76 H 96 Recovery Score Activity: Moves 4 extremities Respiration: Deep Breath/Cough Circulation: +/-20% PreAnes Value Consciousness: Fully Awake Oxygen Saturation: O2 needed for >90% Discharge Sedation Level of Care: Fast Track Phase II Post Sedation Plan On clinical assessment, the patient appears to have tolerated the sedation without complications. Patient is recovering as anticipated. Patient will continue to be monitored by nursing and may be discharged when sedation discharge criteria are met per below protocol. Upon Completions of procedure up to 15 minutes continue every 5 minute vital signs and the P.A.R. score; then discharge to a Phase I or Fast Track to Phase II per the following guidelines: * Discharge Patient to appropriate Phase II area if PAR is 8 or greater or return to pre- procedure baseline. The post - procedure orders will be as directed. * If PAR score is less than 8 or not return to pre-procedure baseline then patient will follow Phase I monitoring till PAR is reached for Phase II. The Phase I may be done in procedure room or may call to secure a Phase I area. * If naloxone or flumazenil are used for reversal, hold in Phase I for continued monitoring from when last reversal dose was given for a minimum of 60 minutes or longer pending the nurse and/or physician discretion of patient condition before discharge to Phase II. Please call the Sedation Physician to re-evaluate and complete post-note for discharge to Phase II area. Do NOT discharge from procedure sedation or Phase 1 until post- sedation evaluation note is complete by procedure /sedation MD Sedation Discharge Instructions to be given to the patient at discharge to home.
--- NOTE | 2019-12-28 23:26 | Cardiac Catheterization ---
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 Cardiac Status Clinical evaluation leading to the procedure CAD Presenation: Unstable angina Anginal Classification: CCS IV Heart Failure: No Cardiogenic Shock within 24 Hours: No Cardiac Arrest within 24 Hours: No Imaging Studies Past 6 Months: Yes Stress Studies Past 6 Months: No Diagnostic Physicians Name: Darrel Major MD Closure Device Percutaneous Entry Location: Radial Closure Device: Radial Band Recommendations: PCI without planned CABG PCI Indication: Unstable Angina Lesion Segment Name: Distal RCA Culprit Artery: Yes Stenosis Prior to Rx (%): 95 Chronic Total Occlusion: No IVUS: No FFR: No Pre-Procedure NADINE Flow: 3 Previously Treated Lesion: No Lesion Complexity: Non-High/Non-C Lesion Length (mm): 15 Thrombus Present: No Bifurcation Lesion: No Guidewire Across Lesion: Stenosis Post-Procedure (%): 0 Post-Procedure NADINE Flow: 3 Devices(s) Deployed: Yes Yes Intraprocedure Events Significant Disection: No Perforation: No Cardiac Cath Procedure Full Procedure Date December 28, 2019 Pre-Procedure Diagnosis Pre-Procedure Diagnosis: Acute Coronary Syndrome AUC Score AUC Score: 7 Post-Procedure Diagnosis Post-Procedure Diagnosis: Severe CAD, Successful PCI and Normal Intracardiac Pressures Procedure(s) Performed Procedure(s) Performed: Coronary Angiography, Left Heart Cath and Drug Eluting Stent Sprinkling System Installer Darrel Major MD Tool Room Machinist(s) Gagan Estimated Blood Loss Estimated Blood Loss: 10 Medication(s) Medication(s): Clopidogrel, Fentanyl, Heparin, Lidocaine 1%, Nicardipine, Nitroglycerin and Versed Summary of Findings Indication: Acute coronary syndrome Access: 6 Fr slender right radial artery Catheters: [place], JR4 guide Findings: LM -medium caliber vessel, angiographically normal LAD -medium caliber, proximal luminal regularities, 40% mid segment stenosis just after takeoff of medium caliber second diagonal. Distal LAD with luminal irregularities and severe tortuosity. Second diagonal with 50 to 60% proximal stenosis. Small superior branch with 70% ostial stenosis. Circumflex -medium caliber, 20-30% mid segment disease. Medium OM1 without significant disease, distal left PLB tortuous without disease. RCA -dominant, large caliber, 40 to 50% earlymid stenosis, diffuse mid segment luminal irregularities, 95% acute appearing earlydistal stenosis with additional 60% stenosis in distal RCA. PDA, PLB tortuous with luminal irregularities. LVEDP -2 -- PCI -- Antithrombotic therapy: Heparin, clopidogrel Procedure: RCA cannulated with JR4 guide Packaging Design Engineer 50 wire wire passed across lesion into distal vessel Distal RCA lesions predilated with 2.0 compliant balloon Dilated lesions stented with 3.0 x 26 mm [place] drug-eluting stent Stent post-dilated with 3.25 noncompliant balloon IC vasodilators administered for spasm Post procedure NADINE 3 flow, stent well expanded with minimal residual stenosis and no apparent cardiac complications. Arterial Closure: TR band Summary: 1. Severe single vessel coronary artery disease -Distal RCA with early 95% acute appearing stenosis and sequential 60% stenosis 2. Moderate non-culprit coronary artery disease 40 to 50% earlymid RCA stenosis 40% mid LAD, 50 to 60% proximal second diagonal 3. Normal intracardiac filling pressure 4. Successful PCI of distal RCA lesions with single drug-eluting stent (3.0 x 26 mm [place]; postdilated with 3.25 NC). Recommendations: To PCU for continued monitoring Loaded with clopidogrel 600 mg in [employer] Grade Mathematics [employer] Continue dual-antiplatelet therapy for at least 1 year Continue statin, and ASCVD risk factor modification Consult cardiac Rehab Hemodynamics Rest Ao:: 126/67/93 Final Ao: 121/58/85 LV: 126/2 Recommendations Recommendations: PCI without planned CABG Specimens Specimens: None Radiation Exposure (mGy) 1781 Contrast (mls) 100 Fluids (cc crystalloids) Fluids (cc crystalloids): 95 Drains Drains: None Anesthesia Moderate Procedural Complication(s) None Disposition PCU I attest to the content of the Intraoperative Record and any orders documented therein. Any exceptions are noted below. [facility] Card Cath Procedure Codes Cardiac Catheterization Procedure 1: Cardiovascular Cath Procedures: 77994 Coronaries and LHC (+/-LV) Moderate Sedation Procedure 1: Sedation/Anesthesia: 76306 Mod Sedation by the same physician;Init15 Min Child Age 5 & Up Procedure 2: Sedation/Anesthesia: 12481 Mod Sedation by the same physician; Ea [id number] Minutes Stenting Procedure 1: Cardiovascular Stent Procedures: 04817 Perc transcatheter placement of intracoronary stent(s), with ang PG Care Time/CCT Total # of Minutes Spent Total Time Spent with Patient: Total time spent is greater than 50% in coordination of care (as documented) at patient's floor/unit and/or counseling patient:
--- NOTE | 2019-12-29 06:11 | Electrocardiogram Report ---
Test Reason : Blood Pressure : / mmHG Vent. Rate : 059 BPM Atrial Rate : 059 BPM P-R Int : 148 ms QRS Dur : 090 ms QT Int : 418 ms P-R-T Axes : 072 014 012 degrees QTc Int : 413 ms Sinus bradycardia with sinus arrhythmia Otherwise normal ECG When compared with ECG of 27-DEC-2019 07:13, No significant change was found Confirmed by Sylvester Victoria ([id number]) on 12/29/2019 6:11:13 AM Referred By: REFERRED SELF Confirmed By:Sylvester Victoria
[2019-12-29 07:15] LABS: Calcium 9.4 mg/dl (8.5-10.1); Creatinine Clr Calc Pharmacy 44.9 ml/min; Est GFR (African American) 81.9; Est GFR (Non-African American) 70.7; Potassium 3.7 mmol/L (3.5-5.1)
[2019-12-29] MEDS: HEPARIN SOD 5,000 UNIT/0.5 ML VIAL SQ SCH (08:03)
[2019-12-29] MEDS: METOPROLOL TARTRATE 25 MG TAB PO SCH (08:03)
[2019-12-29] MEDS: ATORVASTATIN 20 MG TAB PO SCH (08:03)
[2019-12-29] MEDS: FAMOTIDINE 20 MG TAB PO SCH (08:03)
[2019-12-29] MEDS: ASPIRIN 81 MG ECTAB PO SCH (08:03)
[2019-12-29] MEDS: ESCITALOPRAM OXALATE 10 MG TAB PO SCH (08:03)
[2019-12-29] MEDS ORDERED: CLOPIDOGREL BISULFATE 75 MG TAB PO ONE (09:33)
--- NOTE | 2019-12-29 09:34 | Discharge Summary ---
Date of Service December 29, 2019 Admission HPI Per Admitting Provider 79-year-old very healthy female who is been having few weeks worth of exertional chest pressure. Patient states that her chest pressure is very reproducible. She states that if she walks on a flat surface she can walk for 10 minutes before it occurs but if she walks on an incline it can occur immediately. It radiates to the inside of both upper arms also her neck and back. She does not get short of breath with this which she thinks is unusual because she has COPD. She does not get nauseous or diaphoretic. Patient typically takes very little medications does have an anxiety component taking Lexapro taking occasional Pepcid. EKG in the emergency department is sinus rhythm there may be some nonspecific ST changes inferiorly and lateral as compared to an EKG from December 2018 Principal Diagnosis Angina, coronary artery disease Discharge Exam Constitutional WD/WN, vitals as above Eyes PERRL, conjunctivae normal, anicteric sclerae ENMT external ear and nose normal, oropharynx normal Neck trachea midline, no thyromegaly Respiratory normal respiratory effort, lungs clear to auscultation Cardiovascular RRR, no murmur, no edema Gastrointestinal (Abdomen) normal bowel sounds, soft, nontender, no hepatosplenomegaly Musculoskeletal no cyanosis or clubbing, extremities motor strength 5/5 Skin no rashes, warm and dry Neurologic patellar DTR's 2+ bilat, sensation intact and PERRL, EOMI, accommodation nl, no face palsy, no dysarthria Psychiatric A+Ox3, euthymic affect Lymphatic no cervical or axillary lymphadenopathy Discharge Data Allergies Allergy/AdvReac Type Severity Reaction Status Date / Time Sulfa (Sulfonamide Allergy Severe ITCHY, Verified 12/26/19 11:12 Antibiotics) CAN'T SLEEP lisinopril [From Zestril] AdvReac Verified 12/26/19 11:12 tolterodine [From Detrol] AdvReac Verified 12/26/19 11:12 Consultations 12/26/19 11:51 ED Decision to Admit Stat 12/26/19 13:49 Consult Cardiology Routine Procedures Performed Operation Date: 12/28/19 12:30 Actual Procedures p Cath, Left with Cors and Vent - Jeremiah Major MD s Cineradiography w/Routine Exam - Jeremiah Major MD s Drug Eluting Stent SGl Vessel - Jeremiah Major MD Ordered Studies 12/28/19 06:59 CL Cath Imgs for PACS use only Routine Hospital Course (1) Unstable angina: -with typical CP with exertion, relieved with rest, progressing over the last 3 weeks, was relieved with NTG in ER -with subtle ECG changes ST dep lat leads on admission -trop undetectable and then slightly detectable x 2 after admission -ECHO: EF 65%, no wall motion abnormalities, no valve disease Left heart cath on 12/27: one GORDY placed in the RCA tolerated well, stable condition back to PCU did well overnight, no further chest pain or pressure - discharge on aspirin 81mg daily and Plavix 75mg daily, take DAPT for one year -continue metoprolol 12.5mg po bid -LDL 139, TChol 226. Previous LDL as high as 180. Has been intolerant of simvastatin 10mg and lovastatin low dose -start atorvastatin 20mg daily and titrate up as tolerated, will take CoQ 10 as well -NTG prn CP discharge to home, follow up with cardiology in 2 weeks, Dr. Colvin (2) Chest pain: due to coronary disease (3) GERD (gastroesophageal reflux disease): -continue Pepcid (4) Anxiety: Continue Lexapro and PRN lorazepam as anxiety is exacerbated currently in hospital (5) Cerebral arterial aneurysm: as above, 3mm basilar artery tip, stable for 13 years (6) Chronic obstructive pulmonary disease: mod obstruction noted on PFTs from several years ago due to secondhand smoke from -albuterol prn (7) Classic migraine with aura: no acute issues (8) Hyperlipidemia: as above start atorvastatin and watch for myalgias recommend Co Q10 (9) Hypertension: BP stable, continue metoprolol (10) Osteopenia: continue Vit D as outpt (11) DVT prophylaxis: heparin subcu for DVT prevention Dispo - observe over night after LHC and GORDY, likely home tomorrow Total Time Total Time Spent Total Time Spent (In Minutes): 32 minutes Total Time Includes: Examination of the Patient, Discharge Planning, Medication Reconciliation, Communication With Other Providers (discussed with Dr. Colvin) and Other (long talk with patient and her ) Discharge Plan Discharge Items Patient Disposition: Home - Self-Care Reason For Visit: EXERTIONAL CHEST PAIN Discharge Diagnosis: Angina Coronary artery disease, moderate to severe Condition on Discharge: Good Goals: medical management of coronary disease follow up with cardiology, cardiac rehab Activity: Per Instructions section Lifting: Gradually increase as tolerated Bathing: No limitations Sexual Activity: Wait until after follow-up appointment Exercise/Sports: Wait until after follow-up appointment Non-emergency contact: Primary Care Provider and Insecticide Maker Call non-emergency contact if: you have any medication questions, your symptoms worsen and your pain is not controlled Follow-up/Referrals: José Miguel Colvin MD [Physician] - (2 weeks---dr. Colvin's office will call with appointment) Winter Dey MD [Primary Care Provider] - 01/04/20 11:20 am (one week) Diet: Heart Healthy Addtl Attending Provider Instructions: Medications: - ASPIRIN: 81mg daily, this helps keep stent open, prevent heart attacks - PLAVIX: 75mg daily, this, with aspirin, helps keep stent open, take for one year - LIPITOR: 20mg daily, helps stabilize plaques, controls cholesterol - METOPROLOL: 12.5mg twice a day, controls heart rate and blood pressure - NITRO: take as needed for chest pain Coronary disease, moderate to severe stent placed in the right coronary artery medications you are prescribed are to keep stent open, prevent future stenosis, maintain heart function take medications as prescribed follow up with Dr. Colvin in 1-2 weeks Pending Studies at Discharge: No Stand-Alone Forms: [employer], Smoking Cessation Medications and DC Order Prescriptions: New atorvastatin 20 mg Tablet 20 mg PO QAM 30 Days Qty: 30 RF: 3 metoprolol tartrate 25 mg Tablet 12.5 mg PO BID 30 Days Qty: 30 RF: 3 aspirin 81 mg Tablet,Delayed Release (Dr/Ec) 81 mg PO QAM 30 Days Qty: 30 RF: 3 nitroglycerin [Nitrostat] 0.4 mg Tablet, Sublingual 0.4 mg sublingual UD PRN (Reason: chest pain) 30 Days Qty: 100 RF: 1 clopidogrel [Plavix] 75 mg tablet 75 mg PO DAILY Qty: 30 RF: 3 Continued escitalopram oxalate 10 mg tablet 10 mg PO DAILY Qty: 90 RF: 3 albuterol sulfate [ProAir HFA] 90 mcg/actuation HFA aerosol inhaler 1 - 2 puffs INH Q4H PRN (Reason: shortness of breath) Qty: 8.5 RF: 3 cholecalciferol (vitamin D3) 1,000 unit (25 mcg) tablet 1,000 unit PO Q OTHER DAY RF: 0 omega 3-kph-mvk-fish oil [Fish Oil] 1,000 mg (120 mg-180 mg) capsule 1 cap PO Q OTHER DAY RF: 0 famotidine [Pepcid] 20 mg tablet 20 mg PO BID Qty: 30 RF: 2 Discharge Orders: Discharge Order (Routine); Ordered 12/29/19 Ordered By: Yogi Figueroa Admission Data Admit Date/Time: 12/26/19 12:10 Attending Provider: Yogi Figueroa Admit Provider: Henry Alvarez Primary Care Provider: Winter Dey V. Other Providers: Henry Alvarez ; Jeremiah Major Other Interventions: Discharge Summary Assessment (RN) Last Done: 12/29/19 10:11 DC Date/Time DO NOT enter until pt leaves facility: 12/29/19 10:44 Coding Level of Care Code D/C Day Management >30 mins Diagnoses Unstable angina I20.0 Chest pain R07.9 Chest pain type: unspecified GERD (gastroesophageal reflux disease) K21.9 Anxiety F41.9 Cerebral arterial aneurysm I67.1 Chronic obstructive pulmonary disease J44.9 Classic migraine with aura G43.109 Hyperlipidemia E78.5 Hypertension I10 Osteopenia M85.80 DVT prophylaxis Z29.9
--- NOTE | 2019-12-29 11:04 | Cardiology Progress Note ---
Date of Service December 29, 2019 Assessment & Plan (1) Angina pectoris, crescendo: -GORDY placed in the distal RCA Dr. Major yesterday. -long stent covering 2 lesions (3 x 26 mm). -continue aspirin and Plavix. -follow-up in my office in 1-2 weeks. -continue Lipitor and metoprolol. -investigate cardiac rehabilitation. (2) Abnormal ECG: -dynamic lateral ST abnormality. -echocardiogram with normal LV function and no wall motion abnormalities. (3) Hypertension: -adequate control, but there is a component of anxiety. -mild LVH on echocardiogram. (4) Hyperlipidemia: -atorvastatin at 20 mg q.h.s. -discussed the use of coenzyme Q10. Admission and Anticipated Discharge Date Admission Date: December 26, 2019 Subjective The patient is resting comfortably in bed without complaints of chest discomfort or dyspnea. She is anxious for hospital discharge. All of her questions were answered. Physical Exam Physical Exam: In general this is a well-developed well-nourished white female in no acute distress. HEENT exam is negative. Neck is supple with full carotid upstrokes. There are no carotid bruits. Jugular venous pressure is flat at 90. There is no thyromegaly. Cardiovascular exam reveals a regular rhythm with a normal S1 and S2. No S3, S4, or murmurs are noted. Lungs are clear without rales, rhonchi, or wheezes. Abdomen is soft and nontender without bruits. Extremities reveal ecchymosis and edema across the lower right forearm and hand. 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 PG Care Time/CCT Total # of Minutes Spent Total Time Spent with Patient: Total time spent is greater than 50% in coordination of care (as documented) at patient's floor/unit and/or counseling patient: Coding Level of Care Code 01061 Subseq Hosp Care Lvl 3 Diagnoses Angina pectoris, crescendo I20.0 Abnormal ECG R94.31 Hypertension I10 Hyperlipidemia E78.5
== END 2019-12-29 10:44 | disposition home or self-care (01) | DRG 247 ==
LOC: ED 10:27 → 1E 12:10 → SUATTDRO 12:10 → 1E 12:40 → 2S 12-27 21:45

== ENCOUNTER 2021-01-06 05:04 | Inpatient (IN) ==
--- NOTE | 2020-12-12 16:19 | PAT Medication Instructions ---
Medication Instructions Date of Service December 12, 2020 Home Medications Medication Instructions Recorded albuterol sulfate 90 mcg/actuation 1 - 2 puffs INH Q4H PRN #8.5 gm 09/04/19 aerosol inhaler aspirin 81 mg PO QAM 30 Days #30 tab 12/29/19 nitroglycerin [Nitrostat] 0.4 mg SUBLINGUAL UD PRN 30 Days 12/29/19 #100 tab atorvastatin 20 mg tablet 20 mg PO QPM 90 Days #90 tab 03/25/20 albuterol sulfate 90 mcg/actuation aerosol inhaler 1 - 2 puffs INH Q4H PRN aspirin 81 mg PO QAM 30 Days nitroglycerin [Nitrostat] 0.4 mg SUBLINGUAL UD PRN atorvastatin 20 mg tablet 20 mg PO QPM cyclosporine 0.05 % eye drops in a dropperette 1 drp OPHTHALMIC (EYE) Q12H cholecalciferol (vitamin D3) 50 mcg PO QPM clopidogrel [Plavix] 75 mg PO Q3D escitalopram oxalate [Lexapro] 20 mg PO QAM famotidine [Pepcid] 20 mg PO BID PRN gabapentin 200 mg PO BID losartan 25 mg PO BID Continue as directed nitroglycerin [Nitrostat] 0.4 mg SUBLINGUAL UD PRN (if needed) ASK your prescriber and surgeon clopidogrel [Plavix] 75 mg PO Q3D DO NOT take the morning of surgery losartan 25 mg PO BID Take morning of surgery With a small sip of water, OTHERWISE NOTHING TO EAT OR DRINK AFTER MIDNIGHT: albuterol sulfate 90 mcg/actuation aerosol inhaler 1 - 2 puffs INH Q4H PRN (use if needed; please bring with you to hospital day of surgery if possible) aspirin 81 mg PO QAM cyclosporine 0.05 % eye drops in a dropperette 1 drp OPHTHALMIC (EYE) Q12H escitalopram oxalate [Lexapro] 20 mg PO QAM famotidine [Pepcid] 20 mg PO BID PRN (if needed) gabapentin 200 mg PO BID Take evening before surgery albuterol sulfate 90 mcg/actuation aerosol inhaler 1 - 2 puffs INH Q4H PRN (if needed) atorvastatin 20 mg tablet 20 mg PO QPM cyclosporine 0.05 % eye drops in a dropperette 1 drp OPHTHALMIC (EYE) Q12H cholecalciferol (vitamin D3) 50 mcg PO QPM famotidine [Pepcid] 20 mg PO BID PRN (if needed) gabapentin 200 mg PO BID losartan 25 mg PO BID Other Notes If you have any questions please call us at [phone] or [phone] or [phone] or [phone]
--- NOTE | 2020-12-14 11:33 | Anesthesiology Consultation ---
Date of Service December 14, 2020 Assessment & Plan (1) Encounter for pre-operative examination: Chart Review Chart Review: Acceptable Risk for Surgery (pending preop Covid testing results ) and Patient seen in Pre Admission Testing Per [facility] appt on 12/14/20, patient denies any recent travel. No known Covid positive contacts or Covid related symptoms. No known Covid infection in the past 90 days. Preop Covid testing scheduled 01/04/21= will await results. Educated on importance of self quarantining, social distancing and wearing mask in public both for the patient after Covid testing done. Pt is fully vaccinated for Covid Last seen by cardio 10/10/20= pt seen for follow up. Hx of HTN, hyperlipidemia, mild LVH, mild MR, and CAD- GORDY covering two lesions December 2019. Since last visit patient has done well. Chronic low back pain- taking gabapentin and scheduled for epidural injection in December 2020. "The patient is stable from a cardiovascular standpoint. She demonstrates excellent control of her blood pressure and lipid values. Her coronary artery disease remains quiescent on current medical regimen. As above, we have discussed weaning off Plavix so she can have an epidural injection and a total shoulder replacement in December of this year. She is an acceptable cardiac risk for shoulder replacement surgery without further testing. Highly complex medical issues were managed to discuss today." Plavix weaning beginning January 04, 2021 and will be off Plavix by December 22, 2020. " Acceptable cardiac risk for shoulder replacement surgery without further testing." Teaching & Discussion Pre-Anesthesia Teaching/Discussion Notes: Instructed NPO after midnight before surgery,except medications with 15 cc of water. Medication instructions provided according to the PAT guidelines. History Surgery Operation Date: 01/06/21 07:00 Proposed Procedures p Right Reverse Total Shoulder Arthroplasty - Rick Guido, Height/Weight Height: 5 ft 2.5 in Weight: 53.9 kg Allergies Allergy/AdvReac Type Severity Reaction Status Date / Time Sulfa (Sulfonamide Allergy Severe ITCHY, Verified 12/09/20 11:22 Antibiotics) CAN'T SLEEP Medications Home Medications Medication Instructions Recorded Confirmed Last Taken albuterol sulfate 90 mcg/actuation 1 - 2 puffs INH Q4H PRN #8.5 gm 09/04/19 12/09/20 12/25/19 aerosol inhaler aspirin 81 mg PO QAM 30 Days #30 tab 12/29/19 12/09/20 Unknown nitroglycerin [Nitrostat] 0.4 mg SUBLINGUAL UD PRN 30 Days 12/29/19 12/09/20 Unknown #100 tab atorvastatin 20 mg tablet 20 mg PO QPM 90 Days #90 tab 03/25/20 12/09/20 Unknown cyclosporine 0.05 % eye drops in a 1 drp OPHTHALMIC (EYE) Q12H 07/01/20 12/09/20 Unknown dropperette cholecalciferol (vitamin D3) 50 mcg PO QPM 12/09/20 12/09/20 Unknown clopidogrel [Plavix] 75 mg PO Q3D 12/09/20 12/09/20 Unknown escitalopram oxalate [Lexapro] 20 mg PO QAM 12/09/20 12/09/20 Unknown famotidine [Pepcid] 20 mg PO BID PRN 12/09/20 12/09/20 Unknown gabapentin 200 mg PO BID 12/09/20 12/09/20 Unknown losartan 25 mg PO BID 12/09/20 12/09/20 Unknown gabapentin 100 mg capsule 200 mg PO BID #120 cap 12/13/20 Unknown Past Medical History Medical History (Updated 12/14/20 @ 15:10 by Hilda Vance PA-C) Anxiety CAD (coronary artery disease) December 28, 2019 post PCI/distal RCA/95% stenosis - GORDY placed Cerebral arterial aneurysm Stable on imaging December 2018= "Unchanged dilation of the basilar tip measuring 3 mm is stable dating back to 2011." Dx'ed approximately 15 years ago. Follows only with PCP for monitoring- no surgical intervention needed COPD (chronic obstructive pulmonary disease) Breathing stablechronic SPENCE. No oxygen needed Dry eye Left eyelid does stick with blinking at times- chronic. Pt on eye drops and following with eye doctor GERD (gastroesophageal reflux disease) Controlled and stable Hearing deficit BL HERNANDEZ History of breast cancer Dx 2012 Left breast; h/o lumpectomy + radiation No current issues History of Graves' disease HLD (hyperlipidemia) HTN (hypertension) IBS (irritable bowel syndrome) Stable and controlled currently Rare diarrhea Lumbago Osteoarthritis Osteoporosis Restless legs syndrome Skin cancer Squamous cell skin cancer removed recently from leg- instructed patient to update surgeon- pt currently on abx and following with derm Spinal stenosis, lumbar region with neurogenic claudication Gets routine epidural injections Exercise / Class Metabolic Activity III < 4 Walking/Shop/Light housework (one flight of stairs - no chest pain, mild SOB ) Past Family History Family History Father Alcoholism Colorectal cancer Hypertension Mother Alzheimer disease Grandfather (Paternal) Myocardial infarction Other Family history non-contributory No family history of adverse response to anesthesia Denies family history of Ovarian cancer Prostate cancer Breast cancer Past Surgical History Surgical History (Updated 12/14/20 @ 13:46 by Hilda Vance PA-C) History of benign neoplasm of skin History of cardiac catheterization 2019 CP - MN - stent History of colonoscopy History of esophagogastroduodenoscopy (EGD) History of heart artery stent 12/28/19 History of lumpectomy of left breast x 2 S/P hysterectomy with oophorectomy Past Anesthesia History No Hx of Anesthesia Complications (with exception to SOB post op - 1 episode - prior to getting diagnosed with COPD ) and No Family Hx of Anesthesia Complications History of PONV No Hx of PONV and No Hx of Motion Sickness Social History Smoking Status: Never smoker Do You Dip or Chew Tobacco: No Hx Alcohol Use: Yes (couple of beers a week) Alcohol type: beer alcohol intake frequency: a few times a month Hx Substance Use: No substance use type: does not use Review of Systems Chronic SPENCE- stable Mild snoring - no witnessed apnea Patient denies chest pain, shortness of breath at rest, cough, wheezing, palpitations. No hx of seizures, stroke. No hx of blood clots or blood transfusions Physical Exam Vital Signs VITALS BP 153/82 P 63 TEMP 97.9 SP02 96% RESP 16 Constitutional no acute distress ENMT Mouth: no TMJ clicking Thyromental Distance: > or= 3.5 Finger Breadths (3.5) Mallampati Class: II Crowns bottom right teeth Top front tetth - capped. Neck + limited neck extension (moderate to severe ) Respiratory normal respiratory effort; no respiratory distress Auscultation: lungs clear to auscultation bilaterally; no wheezes Cardiovascular Rate/Rhythm: regular rate and regular rhythm Heart Sounds: no murmur Vessels: no carotid bruit Musculoskeletal Spine: + pain with cervical ROM (pain ) Extremities: extremities normal to inspection Psychiatric Orientation: alert Lab Results Anesthesia Preop Results Results Anesthesia Widget: WBC 6.47 K/uL (4.8-10.8) 12/14/20 Hgb 14.4 g/dL (12.0-16.0) 12/14/20 Hct 43.4 % (37-47) 12/14/20 Plt 192 K/uL (130-400) 12/14/20 Na 140 mmol/L (136-145) 12/14/20 K 4.3 mmol/L (3.5-5.1) 12/14/20 Cl 109 mmol/L (98-107) H 12/14/20 CO2 28 mmol/L (21-32) 12/14/20 BUN 15 mg/dl (7-18) 12/14/20 Creat 0.69 mg/dl (0.6-1.2) 12/14/20 Glucose Level 95 mg/dl (70-99) 12/14/20 PT 10.3 Seconds (9.0-12.0) 12/14/20 PTT 27.1 Seconds (21.0-31.0) 12/14/20 INR 1.0 (0.9-1.1) 12/14/20 Blood Type A Positive 12/14/20 Antibody Screen NEGATIVE 12/14/20 Testing Electrocardiogram Date: 12/14/20 Findings: + SB @ (58bpm) Otherwise normal EKG per cardio. Chest X-Ray Date: 03/01/20 Findings: + NAD Cardiac silhouette is upper limits of normal in size, unchanged. Coronary artery stent grafts. Calcified plaque of the thoracic aortic arch. No pneumothorax, large pleural effusion, overt pulmonary edema or airspace consolidation typical for pneumonia. Surgical clips project over the left breast. Degenerative changes of the shoulders and spine. Sigmoidal thoracolumbar scoliosis. Hyperinflation with chronic interstitial coarsening and biapical pleural thickening/pleural parenchymal scarring. Echocardiogram Date: 12/27/19 EF: 60-65% LV Function: normal RWMA: + none Other Findings: + LVH (mild/concentric ) and + diastolic dysfunction (Grade I ) Valvular Disease: + MR (mild) Cardiac Catheterization Date: 12/28/19 LM = angiographically normal. LAD =40% mid segment stenosis, second diagonal 50 to 60% proximal stenosis, small superior branch 70% ostial stenosis Circumflex =20-30% mid segment stenosis. RCA =40 to 50% early mid stenosis; 95% acute appearing early distal stenosis with 60% stenosis in the distal RCA Summary: Severe single-vessel coronary diseasesuccessful PCI of distal RCA lesions with single GORDY.
--- NOTE | 2021-01-05 15:19 | History & Physical Report ---
Date of Service January 05, 2021 Assessment & Plan (1) Rotator cuff arthropathy of right shoulder: We will proceed with a right reverse shoulder arthroplasty. Postoperatively she will be started back on her Plavix and placed in an arm sling and kept overnight in the hospital for postoperative medical management. She plans to return to [facility] and do physical therapy there upon discharge. History of Present Illness Chief Complaint: Rotator cuff arthropathy of the right shoulder. Primary Care Provider: Winter Dey MD Bell is a pleasant 80-year-old female who is been dealing with pain and weakness of her right shoulder. MRI shows a medium sized rotator cuff tear and x-rays show advanced arthritis. After failing conservative treatment, she has elected proceed with a right reverse shoulder arthroplasty. She has been taking Plavix for the past year for cardiac stent and she is just coming off of that now.. Allergies Allergy/AdvReac Type Severity Reaction Status Date / Time Sulfa (Sulfonamide Allergy Severe ITCHY, Verified 12/29/20 08:10 Antibiotics) CAN'T SLEEP Home Medications Medication Instructions Recorded Confirmed Type albuterol sulfate 90 mcg/actuation 1 - 2 puffs INH Q4H PRN #8.5 gm 09/04/19 12/29/20 Rx aerosol inhaler (ProAir HFA) aspirin 81 mg tablet,delayed 81 mg PO QAM 30 Days #30 tab 12/29/19 12/29/20 Rx release nitroglycerin 0.4 mg sublingual 0.4 mg SUBLINGUAL UD PRN 30 Days 12/29/19 12/29/20 Rx tablet (Nitrostat) #100 tab atorvastatin 20 mg tablet 20 mg PO QPM 90 Days #90 tab 03/25/20 12/29/20 Rx cyclosporine 0.05 % eye drops in a 1 drp OPHTHALMIC (EYE) Q12H 07/01/20 12/29/20 History dropperette (Restasis) cholecalciferol (vitamin D3) 50 50 mcg PO QPM 12/09/20 12/29/20 History mcg (2,000 unit) capsule escitalopram oxalate 20 mg tablet 20 mg PO QAM 12/09/20 12/29/20 History (Lexapro) famotidine 20 mg tablet (Pepcid) 20 mg PO BID PRN 12/09/20 12/29/20 History gabapentin 100 mg capsule 200 mg PO BID 12/09/20 12/29/20 History losartan 25 mg tablet 25 mg PO BID 12/09/20 12/29/20 History gabapentin 100 mg capsule 200 mg PO BID #120 cap 12/13/20 12/29/20 Rx Past Med/Surg History Medical History Anxiety CAD (coronary artery disease) December 28, 2019 post PCI/distal RCA/95% stenosis - GORDY placed Cerebral arterial aneurysm Stable on imaging December 2018= "Unchanged dilation of the basilar tip measuring 3 mm is stable dating back to 2011." Dx'ed approximately 15 years ago. Follows only with PCP for monitoring- no surgical intervention needed COPD (chronic obstructive pulmonary disease) Breathing stablechronic SPENCE. No oxygen needed Dry eye Left eyelid does stick with blinking at times- chronic. Pt on eye drops and following with eye doctor GERD (gastroesophageal reflux disease) Controlled and stable Hearing deficit BL HERNANDEZ History of breast cancer Dx 2012 Left breast; h/o lumpectomy + radiation No current issues History of Graves' disease HLD (hyperlipidemia) HTN (hypertension) IBS (irritable bowel syndrome) Stable and controlled currently Rare diarrhea Lumbago Osteoarthritis Osteoporosis Restless legs syndrome Skin cancer Squamous cell skin cancer removed recently from leg- instructed patient to update surgeon- pt currently on abx and following with derm Spinal stenosis, lumbar region with neurogenic claudication Gets routine epidural injections Surgical History History of benign neoplasm of skin History of cardiac catheterization 2019 CP - [place] - 1 stent History of colonoscopy History of esophagogastroduodenoscopy (EGD) History of heart artery stent 12/28/19 History of lumpectomy of left breast x 2 S/P hysterectomy with oophorectomy Family History Father Alcoholism Colorectal cancer Hypertension Mother Alzheimer disease Grandfather (Paternal) Myocardial infarction Other Family history non-contributory No family history of adverse response to anesthesia Denies family history of Ovarian cancer Prostate cancer Breast cancer Social History Smoking Status: Never smoker Second Hand Exposure: Yes ( used to smoke - quit 25 years ago); Hx Alcohol Use: Yes (couple of beers a week) Alcohol type: beer Hx Substance Use: No Preferred Language: Swedish Communication Ability: Effective Hearing Ability: Use of Hearing Aid [employer] Required: No Beliefs That Will Affect Care: None marital status: Current Living Situation: Spouse current occupational status: retired Feels Safe at Home: Yes Dental Care, Regularly: Yes Physical Activity Frequency: 5-6 Times per Week Seatbelt Use: always Sunscreen Use: Yes Assistive Devices: Glasses and Hearing Aid - Bilateral Review of Systems All systems reviewed & are unremarkable except as noted in HPI & below. Physical Exam On physical examination of the right shoulder, she has decreased range of motion weakness throughout. She has pain over the glenohumeral joint line.. Constitutional WD/WN, vitals as above Eyes PERRL, conjunctivae normal, anicteric sclerae ENMT external ear and nose normal, oropharynx normal Neck trachea midline, no thyromegaly Respiratory normal respiratory effort Cardiovascular RRR, no murmur, no edema Gastrointestinal (Abdomen) normal bowel sounds, soft, nontender, no hepatosplenomegaly Psychiatric A+Ox3, euthymic affect Results & Data Results & Data Laboratory Results . Diagnostic Findings X-rays the right shoulder do show advanced osteoarthritis with joint space narro wing and osteophyte formation. MRI of the right shoulder does show a medium size right rotator cuff tear.. PG Care Time/CCT Total # of Minutes Spent Total Time Spent with Patient: Total time spent is greater than 50% in coordination of care (as documented) at patient's floor/unit and/or counseling patient: Coding Level of Care Code None Diagnoses Rotator cuff arthropathy of right shoulder M12.811
[2021-01-06] MEDS ORDERED: TRANEXAMIC ACID 1,000 MG **IV Intra-op IV SCH (06:00)
[2021-01-06] MEDS ORDERED: dexAMETHasone 4 MG TAB PO SCH (06:00)
[2021-01-06] MEDS ORDERED: ROPIVACAINE 0.5% HCL/PF 150 MG, BUPIVACAINE 0.75% MPF 20 ML, EPINEPHrine 30MG/30ML (OR ... INSTIL SCH (06:00)
[2021-01-06] MEDS ORDERED: TRANEXAMIC ACID 1,000 MG **IV Pre-op IV SCH (06:00)
[2021-01-06] MEDS ORDERED: LR 15ML/HR IV SCH (06:00)
[2021-01-06] MEDS ORDERED: GABAPENTIN 300 MG CAP PO SCH (06:00)
[2021-01-06] MEDS ORDERED: LR 60ML/HR IV SCH (06:00)
[2021-01-06] MEDS ORDERED: ACETAMINOPHEN 500 MG TAB PO SCH (06:00)
[2021-01-06] MEDS ORDERED: FAMOTIDINE 20 MG TAB PO SCH (06:00)
[2021-01-06] MEDS ORDERED: ceFAZolin 1000MG 1,000 MG/7.5 ML SYR IV SCH (06:00)
[2021-01-06] MEDS ORDERED: BUPIVACAINE 0.5 % 5 MG/1 ML PF 10ML VIAL ONE (06:20)
--- NOTE | 2021-01-06 06:29 | History & Physical Bridge Note ---
Date of Service January 06, 2021 History & Physical Bridge Note I have examined the patient, reviewed the History & Physical and in the interval since the performance of the History & Physical I have noted the following changes of clinical significance: no changes noted
[2021-01-06] MEDS ORDERED: ORTHO JOINT ANESTHETIC ONE (06:31)
[2021-01-06] MEDS ORDERED: MIDAZOLAM HCL 1 MG/ML 2ML VIAL ONE (06:36)
[2021-01-06] MEDS ORDERED: ROCURONIUM BROMIDE 10 MG/ML 5 ML VIAL IV ONE (06:44)
[2021-01-06] MEDS ORDERED: PROPOFOL IV EMULSION 10 MG/ML 20 ML VIAL IV ONE (06:44)
[2021-01-06] MEDS ORDERED: ONDANSETRON INJ 2 MG/ML 2 ML VIAL ONE (06:44)
[2021-01-06] MEDS ORDERED: fentaNYL citrate 100 MCG/2 ML VIAL ONE (06:59)
[2021-01-06] MEDS ORDERED: KETOROLAC 30 MG/ML VIAL IV PRN (07:12)
[2021-01-06] MEDS ORDERED: ATROPINE SULFATE 0.1 MG/ML 10ML SYR IV PRN (07:12)
[2021-01-06] MEDS ORDERED: ONDANSETRON INJ 2 MG/ML 2 ML VIAL IV PRN ×2 (07:12→09:49)
[2021-01-06] MEDS ORDERED: ALBUTEROL 0.083% NEBU SOLN 3 ML VIAL INH PRN (07:13)
[2021-01-06] MEDS ORDERED: HYDROmorphone INJ 1 MG/ML SYRINGE IV PRN (07:13)
--- NOTE | 2021-01-06 08:06 | Operative Report ---
PG Post Operative Report Pre & Post Diagnosis Operation Date: 01/06/21 07:00 Pre-Op Diagnosis: Rotator cuff arthropathy of the right shoulder with tendinopathy of the long head of the biceps tendon Post-Op Diagnosis: Rotator cuff arthropathy of the right shoulder with tendinopathy of the long head of biceps tendon I identified the patient and participated in the time-out.: Yes Procedure Operation Date: 01/06/21 07:00 Actual Procedures p Right Reverse Total Shoulder Arthroplasty(Right) with open biceps tenodesis as a distinct and separate procedure (modifier 59)- Rick Guido DO Surgeon Rick Guido DO Program Aide [employer] Work Rick Matthews PAC Estimated Blood Loss 200 Findings Consistent with Post-Op Diagnosis Specimens Right humeral head Complications none Disposition Disposition: Recovery Room Indications Bell is a pleasant 80-year-old female who has been doing with chronic worsening right shoulder pain. X-ray showed arthritis and MRI showed a medium sized rotator cuff tear. After failing conservative treatment, she elected proceed with a right reverse shoulder arthroplasty. Description of Procedure A CPT code modifier 59: The long head of the biceps tendon was enlarged and in flamed consistent with tendinopathy. A tenodesis was opted. This was a separate and distinct portion of the procedure. For these reasons, a CPT code modifier 59 will be added to this case. Implants used: I used a [employer] Comprehensive reverse total shoulder arthroplasty system with a size 11 press fit micro humeral stem, a standard humeral tray and a standard humeral bearing, a 25 mm small augment baseplate with a 6.5 mm central screw and superior and inferior locking screws, and a size 36 mm eccentric glenosphere. Bell arrived at [facility] for the above procedure. She was seen in the preoperative holding area and the operative extremity was identified and signed. She was given a preoperative antibiotic, TXA, and an interscalene nerve block. She was taken back to the operating room, laid on table in supine position, and put under general anesthesia. She was then put into the beachchair position. The shoulder was then prepped and draped in sterile fashion. A timeout was done and the patient and the operative extremity was properly identified. A deltopectoral approach was used. Dissection was taken down through the fascia and the deltoid was retracted laterally and the conjoined tendon was retracted medially. The anterior shoulder was exposed. The biceps groove was opened up and the biceps tendon was examined extensively. The biceps tendon demonstrated enlargement and inflammatory changes consistent with longstanding inflammation in the context of osteoarthritis and cuff arthropathy. The long head of the biceps tendon was then tenodesed to the upper border of the pectoralis major. This was a separate and distinct portion of the procedure. The subscapularis was then directly released off the lesser tuberosity with a peel technique. The inferior capsule was released and the humeral head was dislocated. A canal finding reamer was sent down the center of the humeral canal. Sequential reaming up to a size 11 reamer was done. Off that reamer, a proximal humeral resection guide was placed. The proximal humerus was resected at 135 of inclination and 25 of retroversion. Osteophytes were then removed and the glenoid was exposed. Time was spent doing a complete capsular and labral release. The glenoid guide was then placed in the inferior aspect of the glenoid. A 3.2 mm Steinmann pin was then placed into the glenoid vault at 10 of inclination. The glenoid baseplate was then reamed. The final size 25 mm small augment baseplate was then impacted in the place. A 6.5 mm central screw was then plac ed followed by superior and inferior locking screws. A 36 mm eccentric glenosphere was then impacted into place. Surrounding soft tissues were then injected with 100 cc an orthopedic pain control cocktail. The proximal humerus was then exposed. Sequential broaching of the humerus up to a size 11 broach was done. Off that broach a standard humeral tray was trialed. The shoulder was then reduced, brought through a full range of motion, and felt to be stable. The shoulder was then dislocated and the broach was removed. The final size 11 micro press-fit humeral stem was then impacted into place. A standard humeral bearing was then snapped onto a standard humeral tray. The humeral tray was then impacted onto the humeral stem. The shoulder was once again reduced, brought through a full range of motion, and felt to be stable. The subscapularis was then tenodesed back to the lesser tuberosity with transosseous FiberWire sutures and side to side sutures with the arm in 45 of external rotation. A dilute betadyne lavage was then done for 3 minutes. The joint was then irrigated with normal saline solution. Hemostasis was obtained. The interval was closed with 2-0 Vicryl suture. The skin was then closed with 2-0 Vicryl and marek. A Silverlon dressing was placed and the arm was rested in a regular arm sling. She was then extubated and transferred to a hospital bed. She taken to the postanesthesia care unit in stable condition. She tolerated the procedure well. Rick Matthews PA-C, was present for the entire procedure. He was critical for patient positioning, prepping, draping, retraction exposure, wound closure and application of sterile dressing. I attest to the content of the Intraoperative Record and any orders documented therein. Any exceptions are noted below.
--- NOTE | 2021-01-06 08:55 | XRay Report ---
XR shoulder RT min 2V routine HISTORY: 80 years-old Female Post shoulder surgery right shoulder surgery COMPARISON: Shoulder radiographs 09/19/2020 TECHNIQUE: 3 views of the right shoulder FINDINGS: Right shoulder total joint arthroplasty. Overlying skin marek are noted along with expected postsur gical soft tissue swelling and deep tissue air. No acute fracture or unexpected opaque foreign body. Demineralized appearance of the bones. IMPRESSION: Right shoulder total joint arthroplasty with expected postoperative changes. ACT 112: Negative or not required by law. The above report was generated using voice recognition software. It may contain grammatical, syntax o r spelling errors. Electronically signed by: Eddi Noel M.D. 01/06/2021 8:54 AM
[2021-01-06] MEDS ORDERED: NITROGLYCERIN SL 0.4 MG/TAB TAB SL PRN (09:49)
[2021-01-06] MEDS ORDERED: MAGNESIUM HYDROXIDE SUSP 30 ML UDC PO PRN (09:49)
[2021-01-06] MEDS ORDERED: HYDROmorphone INJ 0.5 MG/0.5 ML SYR IV PRN (09:49)
[2021-01-06] MEDS ORDERED: bisacodyL 10 MG SUPP PR PRN (09:49)
[2021-01-06] MEDS ORDERED: METOCLOPRAMIDE HCL INJ 5 MG/ML 2 ML VIAL IV PRN (09:49)
[2021-01-06] MEDS ORDERED: NALOXONE HCL 0.4 MG/1 ML VIAL/CARP IV PRN (09:49)
[2021-01-06] MEDS ORDERED: oxyCODONE HCL IR 5 MG TAB (IMMEDIATE RELEASE) PO PRN (09:49)
[2021-01-06] MEDS ORDERED: GABAPENTIN 100 MG CAP PO SCH (09:49)
[2021-01-06] MEDS ORDERED: ALBUTEROL HFA 8 GM INHALER INH PRN (10:24)
--- NOTE | 2021-01-06 10:57 | Anesthesiology Progress Note ---
Date of Service January 06, 2021 Anesthesia Post Procedure Vital Signs Vital Signs: Temp Pulse Pulse Pulse Resp BP Pulse Ox 01/06/21 10:51 64 18 137/67 92 01/06/21 10:19 36.6 C 65 16 146/68 H 94 01/06/21 09:49 36.6 C 66 15 167/73 H 95 01/06/21 09:30 67 18 141/64 H 93 01/06/21 09:00 36.8 C 67 15 160/70 H 94 01/06/21 08:55 71 19 160/71 H 98 01/06/21 08:45 74 20 178/70 H 100 01/06/21 08:35 79 18 176/62 H 100 01/06/21 08:27 36.4 C L 75 14 167/68 H 100 01/06/21 06:38 63 20 166/78 H 96 01/06/21 05:44 36.5 C 68 20 183/90 H 97 Transfer of Care Handoff Completed per policy Notes Mental Status: alert / awake / arousable Patient Amnestic to Procedure: Yes Nausea / Vomiting: adequately controlled Pain: adequately controlled Airway Patency, RR, SpO2: stable & adequate BP & HR: stable & adequate Hydration State: stable & adequate Anesthetic Complications: no major complications apparent
[2021-01-06] MEDS: SODIUM CHLORIDE 0.9% 1000ML 1,000 ML IV SCH ×2 (11:00→21:02)
[2021-01-06] MEDS: ASPIRIN 81 MG ECTAB PO SCH (11:46)
[2021-01-06] MEDS: ESCITALOPRAM OXALATE 20 MG TAB PO SCH (11:46)
[2021-01-06] MEDS: LOSARTAN POTASSIUM 25 MG TAB PO SCH ×2 (11:47→21:17)
[2021-01-06] MEDS: DOCUSATE SODIUM 100 MG CAP PO SCH ×2 (11:47→21:04)
[2021-01-06] MEDS: MULTIVITAMIN TAB PO SCH (11:47)
[2021-01-06] MEDS: KETOROLAC TROMETHAMINE 15 MG/ML VIAL IV SCH ×2 (11:48→18:02)
[2021-01-06] MEDS: ACETAMINOPHEN 500 MG TAB PO SCH ×2 (13:14→21:04)
[2021-01-06] MEDS: ceFAZolin 2000MG 2,000 MG/15 ML SYR IV SCH ×2 (13:14→21:23)
[2021-01-06] MEDS: RESTASIS: ORDER AWAITING ACTION SCH (15:26)
[2021-01-06] MEDS ORDERED: ATORVASTATIN 20 MG TAB PO SCH (21:00)
[2021-01-06] MEDS ORDERED: SENNA 8.6 MG TAB PO SCH (21:00)
[2021-01-06] MEDS: GABAPENTIN 100 MG CAP PO SCH (21:04)
[2021-01-07] MEDS: RESTASIS: ORDER AWAITING ACTION SCH ×2 (00:24→07:14)
[2021-01-07] MEDS: KETOROLAC TROMETHAMINE 15 MG/ML VIAL IV SCH ×2 (00:24→05:29)
[2021-01-07] MEDS: ACETAMINOPHEN 500 MG TAB PO SCH (05:29)
--- NOTE | 2021-01-07 07:50 | Orthopedic Progress Note ---
Date of Service January 07, 2021 Assessment & Plan (1) Status post reverse arthroplasty of right shoulder: Overall she is doing well. She is not having much pain in the right shoulder. She will be seen by physical therapy this morning for ambulation and range of motion exercises. She can be discharged home later today. She will follow-up with orthopedics in 2 weeks. Toby Luu was seen and examined at bedside this morning. Overall she is doing very well. She is not having any pain in the right shoulder. She was able to get some sleep last night. She has no complaints.. Review of Systems All systems reviewed & are unremarkable except as noted in HPI & below. Physical Exam On physical examination of right shoulder, the dressing is clean and dry. Her radial, median, and ulnar nerves are checked intact at her wrist. She is wearing her sling as instructed.. Results & Data Results & Data Laboratory Results . Diagnostic Findings Postoperative x-rays of the right shoulder show the prosthesis to be in anatomic alignment without any evidence of fracture, dislocation, or loosening. PG Care Time/CCT Total # of Minutes Spent Total Time Spent with Patient: Total time spent is greater than 50% in coordination of care (as documented) at patient's floor/unit and/or counseling patient: Coding Level of Care Code 47575 Post Operative Follow-Up Diagnoses Status post reverse arthroplasty of right shoulder Z96.611
--- NOTE | 2021-01-07 07:53 | Discharge Summary ---
Date of Service January 07, 2021 Admission HPI (Per Admitting) Bell is a pleasant 80-year-old female who is been dealing with pain and weakness of her right shoulder. MRI shows a medium sized rotator cuff tear and x-rays show advanced arthritis. After failing conservative treatment, she has elected proceed with a right reverse shoulder arthroplasty. She has been taking Plavix for the past year for cardiac stent and she is just coming off of that now.. Admission Exam (Per Admitting) On physical examination of the right shoulder, she has decreased range of motion weakness throughout. She has pain over the glenohumeral joint line.. Principal Diagnosis Same as "Discharge Diagnosis" noted below under Discharge Instructions. Discharge Exam On physical examination of right shoulder, the dressing is clean and dry. Her radial, median, and ulnar nerves are checked intact at her wrist. She is wearing her sling as instructed.. Discharge Data Procedures Performed Operation Date: 01/06/21 07:00 Actual Procedures p Right Reverse Total Shoulder Arthroplasty, Uncemented(Right) - Rick Guido DO Ordered Studies 01/06/21 05:00 US - OR guided needle placemen Routine Hospital Course (1) Status post reverse arthroplasty of right shoulder: On January 06, 2021 Bell arrived at [facility] and underwent a right reverse shoulder replacement without complication. She had a general anesthetic and a right interscalene nerve block. Postoperatively she was placed in a sling and transferred to the general orthopedic floors. Her hospital course was uneventful. On postop day #1 her vital signs were stable and her pain was well controlled. She was able to participate well with physical t herapy doing ambulation and range of motion exercises. She was then discharged home. She will follow-up with orthopedics in 2 weeks. PG Care Time/CCT Total # of Minutes Spent Total Time Spent with Patient: Total time spent is greater than 50% in coordination of care (as documented) at patient's floor/unit and/or counseling patient: Discharge Plan Discharge Items Patient Disposition: Home - Home Health Services Reason For Visit: Degenerative Joint Disease Right Shoulder Discharge Diagnosis: Right reverse shoulder replacement Activity: As commented below Non-emergency contact: Surgeon Call non-emergency contact if: your wound has increased redness and your wound has increased drainage Follow-up/Referrals: Geoffrey Garnett MD [Primary Care Provider] - Diet: Regular Addtl Attending Provider Instructions: Activity and Therapy Recommendations: * If you are using [facility] then therapy will be provided at your home until they feel you have accomplished all of your goals. * If you are using [facility] then Physical Therapy will be provided until they feel you are ready to start Outpatient Physical Therapy. * If you are not using home therapy then Outpatient Physical Therapy should start about 3-5 days from your day of surgery. Therapy will last about 8-12 weeks * Wear your sling for 3 weeks, unless otherwise instructed. You may remove your sling to shower and to dress, but otherwise, you should be in your sling at all times, including while sleeping * The shoulder replacement is very stable and you can use your hand while in the sling * You were shown a series of exercises in the hospital. Do these exercises daily including the exercises you were shown in physical therapy. Medications: * Narcotic You will likely be sent home from the hospital with a prescription for the narcotic pain medication that worked best throughout your stay. * Other medications may be prescribed for specific circumstances. If you have any questions, please call the office at . * Resume previous home medications unless otherwise instructed Dressing Care: Leave the Silverlon dressing in place for 7 days. After 7 days you may remove the dressing. If the incision is not draining then you may leave the marek open to air. If there is a little bit of drainage or if the marek are getting stuck on your clothing then cover the incision with a dry dressing. The marek will be removed at your 2 week follow-up appointment. Showering: You may shower with the Silverlon dressing in place. Do not let the shower spray hit the dressing directly. Pat the Silverlon dressing dry. If the dressing becomes wet underneath, then simply remove the dressing. Keep the incision dry until you are 7 days out from the day of surgery. After 7 days you may remove the Silverlon dressing and shower with the marek exposed. Let soapy water run over the marek and pat them dry. Do not scrub or soak the incision. Things To Watch For: * Drainage from the incision site that occurs more than one week after your surgery. * Increased redness at the incision site. * Fever above 102 degrees Fahrenheit. * Unusual chest pain or shortness of breath. * Call [facility] at with any of the above problems Follow-Up Visit: Follow-up with Dr. Guido's PA (Rick Matthews) 2-3 weeks after your day of surgery. He will remove your marek and answer any questions. If you have any additional questions or concerns, Dr Guido is usually in the office at the same time and will be available An appointment was probably scheduled when you signed-up for surgery in the office. If you have any questions call More detailed instructions as well as Frequently Asked Questions were provided in a folder by our office when you signed-up for surgery. Please review these instructions when you get home. If you have any further questions or concerns, please feel free to call the office at [phone] Pending Studies at Discharge: No Stand-Alone Forms: My [facility], Smoking Cessation Medications and DC Order Prescriptions: New tramadol 50 mg tablet 50 mg PO Q6H PRN (Reason: pain) Qty: 30 RF: 0 Continued Restasis 0.05 % dropperette 1 drp ophthalmic (eye) Q12H RF: 0 albuterol sulfate [ProAir HFA] 90 mcg/actuation HFA aerosol inhaler 1 - 2 puffs INH Q4H PRN (Reason: shortness of breath) Qty: 8.5 RF: 3 gabapentin 100 mg capsule 200 mg PO BID Qty: 120 RF: 2 atorvastatin 20 mg tablet 20 mg PO QPM 90 Days Qty: 90 RF: 3 aspirin 81 mg Tablet,Delayed Release (Dr/Ec) 81 mg PO QAM 30 Days Qty: 30 RF: 3 nitroglycerin [Nitrostat] 0.4 mg Tablet, Sublingual 0.4 mg sublingual UD PRN (Reason: chest pain) 30 Days Qty: 100 RF: 1 famotidine [Pepcid] 20 mg tablet 20 mg PO BID PRN (Reason: gerd) RF: 0 losartan 25 mg tablet 25 mg PO BID RF: 0 gabapentin 100 mg capsule 200 mg PO BID RF: 0 escitalopram oxalate [Lexapro] 20 mg tablet 20 mg PO QAM RF: 0 cholecalciferol (vitamin D3) 50 mcg (2,000 unit) capsule 50 mcg PO QPM RF: 0 Discharge Orders: Discharge Order (Routine); Ordered 01/07/21 Ordered By: Rick Guido Admission Data Admit Date/Time: 01/06/21 08:28 Attending Provider: Rick Guido Admit Provider: Rick Guido Primary Care Provider: Geoffrey Garnett
[2021-01-07] MEDS ORDERED: dexAMETHasone 4 MG TAB PO SCH (08:00)
[2021-01-07] MEDS: GABAPENTIN 100 MG CAP PO SCH (08:21)
[2021-01-07] MEDS: LOSARTAN POTASSIUM 25 MG TAB PO SCH (08:21)
[2021-01-07] MEDS: ESCITALOPRAM OXALATE 20 MG TAB PO SCH (08:21)
[2021-01-07] MEDS: DOCUSATE SODIUM 100 MG CAP PO SCH (08:21)
[2021-01-07] MEDS: ASPIRIN 81 MG ECTAB PO SCH (08:21)
[2021-01-07] MEDS: MULTIVITAMIN TAB PO SCH (08:22)
== END 2021-01-07 11:57 | disposition home health service (06) | DRG 483 ==
LOC: ASU 05:04 → 3E 08:28

== ENCOUNTER 2023-01-20 13:53 | Inpatient (IN) ==
[2023-01-20] MEDS ORDERED: SODIUM CHLORIDE 0.9% 500 ML IV ONE (14:23)
--- NOTE | 2023-01-20 14:25 | Emergency Department Note ---
Impression & Plan Stroke ADMIT ED Provider Note HPI: The patient is an 82-year-old female with history of coronary artery disease, hypertension, who presents emergency department chief complaint of slurred speech and left-sided facial droop is been ongoing since about 10 AM yesterday. Patient states that her symptoms developed throughout the day yesterday, she did not want to come to the hospital and her was not home therefore she waited until today to be evaluated. On arrival here to the ED the patient is alert, she is in no acute distress, she does display some mild dysarthria on my examination as well as notable left-sided lower facial droop. Patient does not have any other focal motor deficits, she is otherwise hemodynamically stable, she is alert and oriented on arrival. ROS: - Per HPI Differential Diagnosis: Ischemic stroke, hemorrhagic stroke, Aleman palsy, ocular migraine, amongst other potential pathologies. *Outpatient medications and allergy history reviewed. *Pertinent external medical records reviewed. PE: General: Alert HEENT: Normocephalic, trachea midline Eyes: Extraocular eye movement is intact, no scleral erythema Pulmonary: Clear to auscultation bilaterally, no wheezing Cardio: Regular rate and rhythm GI: Abdomen is soft to palpation : No suprapubic tenderness MSK: No evidence of trauma or malformation of the extremities, no edema Skin: No evidence of rash Neuro: Alert, left-sided facial droop noted with sparing of the forehead, mild slurred speech noted, no ataxia on [id number] testing bilaterally, no drift of the upper extremities or lower extremities with testing against gravity Psychiatric: Cooperative monitoring tech: (As interpreted by myself): - An order was placed for continuous cardiac monitoring - Patient was noted to be in sinus rhythm with a rate of 65 EKG: (As interpreted by myself): Rate: 65 Rhythm: Normal sinus rhythm Intervals: Within normal limits ST changes: No ST elevation Time: 1429 Interventions provided in ED: -IV fluid bolus NIH STROKE SCALE: 1A: Level of consciousness Alert; keenly responsive 0 1B: Ask month and age Both questions right 0 1C: 'Blink eyes' & 'squeeze hands' Performs both tasks 0 2: Horizontal extraocular movements Normal 0 3: Visual dobson No visual loss 0 4: Facial palsy L-sided facial droop +1 5A: Left arm motor drift No drift for 10 seconds 0 5B: Right arm motor drift No drift for 10 seconds 0 6A: Left leg motor drift No drift for 5 seconds 0 6B: Right leg motor drift No drift for 5 seconds 0 7: Limb Ataxia No ataxia 0 8: Sensation Normal; no sensory loss 0 9: Language/aphasia Normal; no aphasia 0 10: Dysarthria Mild-moderate dysarthria: slurring but can be understood +1 11: Extinction/inattention No abnormality 0 TOTAL NIH SCORE =2 Medical Decision Making: Patient presented to the emergency department after experiencing strokelike symptoms yesterday morning around 10 AM, she is over 24 hours after the initial presentation of her symptoms for not considered a tPA candidate. IV was established and lab work ordered, CT imaging of the head as well as CT angiography of the head and neck were ordered. Patient is assigned an NIH stroke scale score of 2 for mild dysarthria and left-sided facial droop. Lab work shows no leukocytosis, hemoglobin is normal, platelet count is normal, CMP does not show any critical findings, troponin is negative, EKG shows normal sinus rhythm per my interpretation. CT angiography of the head as well as CT imaging of the head without contrast were obtained. CT imaging of the head without contrast shows focal hypodensity in the right caudate consistent with infarct. I do suspect that this is the source of the patient's symptoms and that this occurred yesterday morning with the onset of her dysarthria and left- sided facial droop. Patient appears well on my reassessment, she does not have any evidence of large vessel occlusion on CT angiography. She did take a full dose aspirin this m orning. Patient and her at the bedside were updated on the above findings, they are in agreement for admission. Case was discussed with the on- call midlevel provider for the [facility] hospitalist service, Cy Wright PA-C, and the patient was placed for admission in stable condition. Consultants: Hospitalist service, Dr. Smith Disposition discussion held by myself with: Patient and at bedside Diagnosis: 1. Stroke, acute 2. Dysarthria, acute 3. Left-sided facial droop, acute Disposition: ADMIT Jose Elias Núñez DO Emergency Medicine Past Med/Surg History Medical History Anxiety CAD (coronary artery disease) December 28, 2019 post PCI/distal RCA/95% stenosis - GORDY placed Cerebral arterial aneurysm Stable on imaging December 2018= "Unchanged dilation of the basilar tip measuring 3 mm is stable dating back to 2011." Dx'ed approximately 15 years ago. Follows only with PCP for monitoring- no surgical intervention needed COPD (chronic obstructive pulmonary disease) Breathing stablechronic SPENCE. No oxygen needed Dry eye Left eyelid does stick with blinking at times- chronic. 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- instructed patient to update surgeon- pt currently on abx and following with derm Spinal stenosis, lumbar region with neurogenic claudication Surgical History History of cardiac catheterization 2019 CP - [place] - 1 stent History of colonoscopy History of esophagogastroduodenoscopy (EGD) History of heart artery stent 12/28/19 History of lumpectomy of left breast x 2 History of reverse total replacement of right shoulder joint (~01/06/21) Hx of cataract extraction left S/P hysterectomy with oophorectomy Family History Father Alcoholism Colorectal cancer Hypertension Mother Alzheimer disease Grandfather (Paternal) Myocardial infarction Other Family history non-contributory No family history of adverse response to anesthesia Denies family history of Ovarian cancer Prostate cancer Breast cancer Social History Smoking Status: Never smoker Second Hand Exposure: No; Do You Dip or Chew Tobacco: No; Hx Alcohol Use: Yes Alcohol type: beer Hx Substance Use: No Preferred Language: Haitian Communication Ability: Effective Hearing Ability: Use of Hearing Aid Consumer Lender Required: No Beliefs That Will Affect Care: None marital status: Current Living Situation: Spouse Current Living Situation Comment: Lives with in independent part of [facility] current occupational status: retired Feels Safe at Home: Yes Dental Care, Regularly: Yes Physical Activity Frequency: 5-6 Times per Week Seatbelt Use: always Sunscreen Use: Yes Assistive Devices: Glasses and Hearing Aid - Bilateral Allergies Allergies Allergy/AdvReac Type Severity Reaction Status Date / Time Sulfa (Sulfonamide Allergy Severe ITCHY, Verified 01/20/23 16:15 Antibiotics) CAN'T SLEEP Home Meds Home Medications Medication Instructions Recorded Confirmed cyclosporine 0.05 % eye drops in a 1 drp ophthalmic (eye) Q12H 07/01/20 01/20/23 dropperette (Restasis) cholecalciferol (vitamin D3) 50 50 mcg PO QAM 12/09/20 01/20/23 mcg (2,000 unit) capsule escitalopram oxalate 20 mg tablet 20 mg PO QAM 12/09/20 01/20/23 (Lexapro) famotidine 20 mg tablet (Pepcid) 20 mg PO HS 12/09/20 01/20/23 metoprolol succinate 25 mg 25 mg PO HS 05/11/21 01/20/23 tablet,extended release 24 hr atorvastatin 20 mg tablet 20 mg PO HS 11/23/21 01/20/23 erythromycin 5 mg/gram (0.5 %) eye 0.5 inch ophthalmic (eye) TID PRN 11/23/21 01/20/23 ointment WHEN EYE LID BECOMES IRRITATED amoxicillin 500 mg tablet 2,000 mg PO DIRECTED PRN 01/20/23 01/20/23 prophylaxis PRIOR TO DENTAL APPT. aspirin 325 mg tablet 325 mg PO DIRECTED 01/20/23 01/20/23 valsartan 80 mg tablet 80 mg PO QAM 01/20/23 01/20/23 Previous Rx's Medication Instructions Recorded albuterol sulfate 90 mcg/actuation 1 - 2 puffs inhalation Q4H PRN 09/04/19 aerosol inhaler (ProAir HFA) shortness of breath #8.5 grams aspirin 81 mg tablet,delayed 81 mg PO QAM 30 days #30 tabs 12/29/19 release nitroglycerin 0.4 mg sublingual 0.4 mg sublingual UD PRN chest 12/29/19 tablet (Nitrostat) pain 30 days #100 tabs Results & Data (ED) Vital Signs Vital Signs - 24 hr 01/20/23 13:54 01/20/23 14:04 01/20/23 14:44 Temperature 36.6 C Temperature Source Temporal Artery Scan Pulse Rate 75 66 Pulse Rate [Right Finger] 63 Respiratory Rate 18 19 Respiratory Effort / Characteristics Non-Labored Respiratory Depth Normal Blood Pressure 160/91 H Blood Pressure [Right Arm] 180/87 H Blood Pressure Mean 114 Blood Pressure Mean [Right Arm] 118 Pulse Oximetry 96 95 Oxygen Delivery Method Room Air Sepsis Recent Fever Within 48 Hours No Sepsis New/Unexplained Change in Mental Status No Sepsis Action Taken by Nursing No Action Required 01/20/23 16:31 Temperature Temperature Source Pulse Rate Pulse Rate [Right Finger] 62 Respiratory Rate 22 Respiratory Effort / Characteristics Respiratory Depth Blood Pressure Blood Pressure [Right Arm] 172/93 H Blood Pressure Mean Blood Pressure Mean [Right Arm] 119 Pulse Oximetry 96 Oxygen Delivery Method Room Air Sepsis Recent Fever Within 48 Hours Sepsis New/Unexplained Change in Mental Status Sepsis Action Taken by Nursing Laboratory Data 01/20/23 14:28 01/20/23 14:28 Lab Results 01/20/23 01/20/23 01/20/23 Range/Units 14:28 14:28 14:28 WBC 6.13 (4.8-10.8) K/ul RBC 4.70 (4.20-5.40) M/uL Hgb 15.2 (12.0-16.0) g/dl Hct 44.7 (37.0-47.0) % MCV 95.1 (80.0-100.0) fL MCH 32.3 (25.0-34.0) pg MCHC 34.0 (32.0-36.0) g/dL RDW Std Deviation 48.1 H (36.4-46.3) fL RDW Coeff of Mirta 13.8 (11.5-14.5) % Plt Count 149 (130-400) K/uL MPV 10.9 (9.4-12.4) fL Immature Gran % (Auto) 0.5 % Neut % (Auto) 71.8 % Lymph % (Auto) 17.0 % George % (Auto) 7.0 % Eos % (Auto) 2.6 % Baso % (Auto) 1.1 % Neut # (Auto) 4.40 (1.40-6.50) K/uL Lymph # (Auto) 1.04 L (1.2-3.4) K/uL George # (Auto) 0.43 (0.11-0.59) K/uL Eos # (Auto) 0.16 (0-0.50) K/uL Baso # (Auto) 0.07 (0-0.2) K/uL Immature Gran # (Auto) 0.03 (0.01-0.20) K/uL PT Cancelled INR Cancelled APTT Cancelled PTT Ratio Cancelled Sodium 139 (136-145) mmol/L Potassium 3.8 (3.5-5.1) mmol/L Chloride 108 H (98-107) mmol/L Carbon Dioxide 25 (21-32) mmol/L Anion Gap 6 (3-11) BUN 16 (6-23) mg/dl Creatinine 0.71 (0.6-1.2) mg/dl Est Cr Clr Drug Dosing 47.5 ml/min Est GFR ( Amer) 91.3 ml/min Est GFR (Non-Af Amer) 78.8 ml/min BUN/Creatinine Ratio 22.5 H (10-20) Glucose 106 H (70-99(Fasting)) mg/dl Calcium 10.2 (8.6-10.3) mg/dl Magnesium 2.1 (1.7-2.4) mg/dl Total Bilirubin 0.6 (0.2-1.0) mg/dl AST 21 (13-39) U/L ALT 13 (7-52) U/L Alkaline Phosphatase 73 (34-104) U/L Troponin I High Sens 4.0 (0-14) pg/ml Total Protein 7.2 (6.0-8.3) gm/dl Albumin 4.4 (3.4-5.0) gm/dl Globulin 2.8 (2.5-4.0) gm/dl Albumin/Globulin Ratio 1.6 (0.9-2) 01/20/23 Range/Units 15:50 WBC (4.8-10.8) K/ul RBC (4.20-5.40) M/uL Hgb (12.0-16.0) g/dl Hct (37.0-47.0) % MCV (80.0-100.0) fL MCH (25.0-34.0) pg MCHC (32.0-36.0) g/dL RDW Std Deviation (36.4-46.3) fL RDW Coeff of Mirta (11.5-14.5) % Plt Count (130-400) K/uL MPV (9.4-12.4) fL Immature Gran % (Auto) % Neut % (Auto) % Lymph % (Auto) % George % (Auto) % Eos % (Auto) % Baso % (Auto) % Neut # (Auto) (1.40-6.50) K/uL Lymph # (Auto) (1.2-3.4) K/uL George # (Auto) (0.11-0.59) K/uL Eos # (Auto) (0-0.50) K/uL Baso # (Auto) (0-0.2) K/uL Immature Gran # (Auto) (0.01-0.20) K/uL PT 10.9 INR 1.0 APTT 27.0 PTT Ratio 1.0 Sodium (136-145) mmol/L Potassium (3.5-5.1) mmol/L Chloride (98-107) mmol/L Carbon Dioxide (21-32) mmol/L Anion Gap (3-11) BUN (6-23) mg/dl Creatinine (0.6-1.2) mg/dl Est Cr Clr Drug Dosing ml/min Est GFR ( Amer) ml/min Est GFR (Non-Af Amer) ml/min BUN/Creatinine Ratio (10-20) Glucose (70-99(Fasting)) mg/dl Calcium (8.6-10.3) mg/dl Magnesium (1.7-2.4) mg/dl Total Bilirubin (0.2-1.0) mg/dl AST (13-39) U/L ALT (7-52) U/L Alkaline Phosphatase (34-104) U/L Troponin I High Sens (0-14) pg/ml Total Protein (6.0-8.3) gm/dl Albumin (3.4-5.0) gm/dl Globulin (2.5-4.0) gm/dl Albumin/Globulin Ratio (0.9-2) Administered Medications Discontinued Medications Sodium Chloride (Nss) 500 mls @ 999 mls/hr IV .Q31M ONE Stop: 01/20/23 14:53 Last Infusion: 01/20/23 15:20 Dose: 0 mls/hr Documented By: Admin: 01/20/23 14:43 Dose: 999 mls/hr Documented By: KEELEY Ioversol (Ioversol 350 Mg 125ml Prefilled Syringe) 112 ml IV ONCE ONE Stop: 01/20/23 15:20 Last Admin: 01/20/23 15:19 Dose: 112 ml Documented By: EDK Imaging Data Radiologist's Impression: Head CT 01/20/23 14:[address] DOSE: HISTORY: Altered mental status. neuro deficit, acute stroke suspected TECHNIQUE: Multiaxial CT images of the head were performed without the use of intravenous contrast. Automated exposure control was utilized for this study. A dose lowering technique was utilized adhering to the principles of ALARA. Comparison: Head CT 01/16/2019. Findings: The paranasal sinuses and mastoid air cells are clear. The calvarium and skull base are intact. Mild atrophy and microvascular ischemic changes are again noted. There is no mass, hematoma, midline shift. Focal area of hypodensity involving the body and head of the right caudate lobe best seen on images 14 through 16. This is consistent with an acute infarct Impression: Focal area of hypodensity within the right caudate lobe consistent with an acute infarct. ACT 112: Negative or not required by law. Electronically signed by: Marcin Bauer M.D. 01/20/2023 3:38 PM Head CTA 01/20/23 14:23 HEAD & NECK CTA HISTORY: Altered mental status. neuro deficit, acute stroke suspected TECHNIQUE: Multiaxial CT images of the head were performed following the intravenous administration of contrast to evaluate the major cerebral vessels. Multiaxial CT images of the neck were also performed following the intravenous administration of contrast to evaluate the major cervical vessels. 3D/MIP images were also obtained. Sagittal and coronal reformats were reviewed. A dose lowering technique was utilized adhering to the principles of ALARA. COMPARISON: Head and neck CTA 01/16/2019. FINDINGS: Focal hypodensity again noted within the right caudate consistent with an acute infarct. Visualized intracranial internal carotid arteries, distal vertebral arteries, and basilar artery are widely patent. There is no significant stenosis, occlusion, or aneurysm seen within the bilateral ACAs, MCAs, or oracle hrms developer. The major dural venous sinuses are patent. Stable prominence of the basilar tip measuring 3 mm. Moderate calcified plaque again noted within the bilateral carotid siphons. The aortic arch and proximal great vessels are widely patent. There is no significant stenosis, occlusion, or dissection identified within the bilateral common carotid, internal carotid, or vertebral arteries. There is a calcified granuloma within the left lung apex, unchanged. No pneumothorax. IMPRESSION: 1. No significant stenosis, occlusion, or aneurysm within the [place]. 2. No significant stenosis, occlusion, or dissection identified within the carotid or vertebral arteries.. 3. Focal hypodensity again noted within the right caudate consistent with an acute infarct. ACT 112: Negative or not required by law. Electronically signed by: Marcin Bauer M.D. 01/20/2023 3:44 PM Neck CTA 01/20/23 14:23 HEAD & NECK CTA HISTORY: Altered mental status. neuro deficit, acute stroke suspected TECHNIQUE: Multiaxial CT images of the head were performed following the intravenous administration of contrast to evaluate the major cerebral vessels. Multiaxial CT images of the neck were also performed following the intravenous administration of contrast to evaluate the major cervical vessels. 3D/MIP images were also obtained. Sagittal and coronal reformats were reviewed. A dose lowering technique was utilized adhering to the principles of ALARA. COMPARISON: Head and neck CTA 01/16/2019. FINDINGS: Focal hypodensity again noted within the right caudate consistent with an acute infarct. Visualized intracranial internal carotid arteries, distal vertebral arteries, and basilar artery are widely patent. There is no significant stenosis, occlusion, or aneurysm seen within the bilateral ACAs, MCAs, or oracle hrms developer. The major dural venous sinuses are patent. Stable prominence of the basilar tip measuring 3 mm. Moderate calcified plaque again noted within the bilateral carotid siphons. The aortic arch and proximal great vessels are widely patent. There is no significant stenosis, occlusion, or dissection identified within the bilateral common carotid, internal carotid, or vertebral arteries. There is a calcified granuloma within the left lung apex, unchanged. No pneumothorax. IMPRESSION: 1. No significant stenosis, occlusion, or aneurysm within the [place]. 2. No significant stenosis, occlusion, or dissection identified within the carotid or vertebral arteries.. 3. Focal hypodensity again noted within the right caudate consistent with an acute infarct. ACT 112: Negative or not required by law. Electronically signed by: Marcin Bauer M.D. 01/20/2023 3:44 PM Discharge Plan Visit Data Chief Complaint: Stroke/CVA Symptoms Stated Complaint: POSSIBLE MINI STROKE ED Provider: Jose Elias Núñez Discharge Problem: Stroke Forms Stand Alone Forms: My [facility] Prescriptions Prescriptions: No Action Restasis 0.05 % dropperette 1 drp ophthalmic (eye) Q12H albuterol sulfate [ProAir HFA] 90 mcg/actuation HFA aerosol inhaler 1 - 2 puffs INH Q4H PRN (Reason: shortness of breath) Qty: 8.5 3RF aspirin 81 mg Tablet,Delayed Release (Dr/Ec) 81 mg PO QAM 30 Days Qty: 30 3RF Rx Instructions: PER PT "DID NOT TAKE 01/20/23, D/T TAKE 325 MG OF ASA LAST EVENING AND THIS AM, 01/20/23". nitroglycerin [Nitrostat] 0.4 mg Tablet, Sublingual 0.4 mg sublingual UD PRN (Reason: chest pain) 30 Days Qty: 100 1RF famotidine [Pepcid] 20 mg tablet 20 mg PO HS escitalopram oxalate [Lexapro] 20 mg tablet 20 mg PO QAM cholecalciferol (vitamin D3) 50 mcg (2,000 unit) capsule 50 mcg PO QAM Rx Instructions: with heaviest meal of the day metoprolol succinate 25 mg Tablet Extended Release 24 Hr 25 mg PO HS erythromycin 5 mg/gram (0.5 %) Ointment 0.5 inch OPHTHALMIC (EYE) TID PRN (Reason: WHEN EYE LID BECOMES IRRITATED) Rx Instructions: both eyes atorvastatin 20 mg tablet 20 mg PO HS aspirin 325 mg Tablet 325 mg PO DIRECTED Rx Instructions: PER PT "TOOK 1-325 MG TAB LAST EVENING,01/19/23 AND THIS AM,01/20/23" valsartan 80 mg tablet 80 mg PO QAM amoxicillin 500 mg tablet 2,000 mg PO DIRECTED PRN (Reason: prophylaxis PRIOR TO DENTAL APPT.) Rx Instructions: ONE HOUR PRIOR TO DENTAL PROCEDURE Referrals Referrals: Trini Sorensen [Primary Care Provider] - Stroke Qualifiers: CVA mechanism: unspecified Qualified Code(s): I63.9 - Cerebral infarction, unspecified
[2023-01-20 14:40] LABS: Basophils # (auto) 0.07 K/uL (0-0.2); Basophils % (auto) 1.1 %; Eosinophils # (auto) 0.16 K/uL (0-0.50); Eosinophils % (auto) 2.6 %; Hematocrit (blood only) 44.7 % (37.0-47.0); Hemoglobin 15.2 g/dl (12.0-16.0); Immature Granulocytes # (auto) 0.03 K/uL (0.01-0.20); Immature Granulocytes % (auto) 0.5 %; Lymphocytes # (auto) 1.04 K/uL (1.2-3.4); Mean Corpuscular Hemoglobin 32.3 pg (25.0-34.0); Mean Corpuscular Volume 95.1 fL (80.0-100.0); Mean Platelet Volume 10.9 fL (9.4-12.4); Monocytes # (auto) 0.43 K/uL (0.11-0.59); Neutrophils % (auto) 71.8 %; Platelet Count 149 K/uL (130-400); RDW Coefficient of Variation 13.8 % (11.5-14.5); RDW Standard Deviation 48.1 fL (36.4-46.3); White Blood Count 6.13 K/ul (4.8-10.8)
[2023-01-20 14:58] LABS: Albumin Globulin Ratio 1.6 (0.9-2); Albumin Level 4.4 gm/dl (3.4-5.0); BUN Creatinine Ratio 22.5 (10-20); Bilirubin,Total 0.6 mg/dl (0.2-1.0); Calcium 10.2 mg/dl (8.6-10.3); Creatinine Clr Calc Pharmacy 47.5 ml/min; Est GFR (African American) 91.3 ml/min; Est GFR (Non-African American) 78.8 ml/min; Globulin 2.8 gm/dl (2.5-4.0); Magnesium 2.1 mg/dl (1.7-2.4); Potassium 3.8 mmol/L (3.5-5.1); Total Protein 7.2 gm/dl (6.0-8.3)
[2023-01-20] MEDS ORDERED: IOVERSOL 350 MG 125mL Prefilled Syringe IV ONE (15:19)
--- NOTE | 2023-01-20 15:40 | CT Scan Report ---
HEAD CT NONCONTRAST CT DOSE: HISTORY: Altered mental status. neuro deficit, acute stroke suspected TECHNIQUE: Multiaxial CT images of the head were performed without the use of intravenous contrast. A utomated exposure control was utilized for this study. A dose lowering technique was utilized adheri ng to the principles of ALARA. Comparison: Head CT 01/16/2019. Findings: The paranasal sinuses and mastoid air cells are clear. The calvarium and skull base are int act. Mild atrophy and microvascular ischemic changes are again noted. There is no mass, hematoma, mid line shift. Focal area of hypodensity involving the body and head of the right caudate lobe best seen on images 14 through 16. This is consistent with an acute infarct Impression: Focal area of hypodensity within the right caudate lobe consistent with an acute infarct. ACT 112: Negative or not required by law. Electronically signed by: Marcin Bauer M.D. 01/20/2023 3:38 PM
--- NOTE | 2023-01-20 15:46 | CT Scan Report ---
HEAD & NECK CTA HISTORY: Altered mental status. neuro deficit, acute stroke suspected TECHNIQUE: Multiaxial CT images of the head were performed following the intravenous administration o f contrast to evaluate the major cerebral vessels. Multiaxial CT images of the neck were also perform ed following the intravenous administration of contrast to evaluate the major cervical vessels. 3D/[place] P images were also obtained. Sagittal and coronal reformats were reviewed. A dose lowering technique was utilized adhering to the principles of ALARA. COMPARISON: Head and neck CTA 01/16/2019. FINDINGS: Focal hypodensity again noted within the right caudate consistent with an acute infarct. Visualized i ntracranial internal carotid arteries, distal vertebral arteries, and basilar artery are widely paten t. There is no significant stenosis, occlusion, or aneurysm seen within the bilateral ACAs, MCAs, or nailhead setter. The major dural venous sinuses are patent. Stable prominence of the basilar tip measuring 3 mm. Moderate calcified plaque again noted within the bilateral carotid siphons. The aortic arch and proximal great vessels are widely patent. There is no significant stenosis, occ lusion, or dissection identified within the bilateral common carotid, internal carotid, or vertebral arteries. There is a calcified granuloma within the left lung apex, unchanged. No pneumothorax. IMPRESSION: 1. No significant stenosis, occlusion, or aneurysm within the [place]. 2. No significant stenosis, occlusion, or dissection identified within the carotid or vertebral arter ies.. 3. Focal hypodensity again noted within the right caudate consistent with an acute infarct. ACT 112: Negative or not required by law. Electronically signed by: Marcin Bauer M.D. 01/20/2023 3:44 PM
--- NOTE | 2023-01-20 15:46 | CT Scan Report ---
HEAD & NECK CTA HISTORY: Altered mental status. neuro deficit, acute stroke suspected TECHNIQUE: Multiaxial CT images of the head were performed following the intravenous administration o f contrast to evaluate the major cerebral vessels. Multiaxial CT images of the neck were also perform ed following the intravenous administration of contrast to evaluate the major cervical vessels. 3D/PA P images were also obtained. Sagittal and coronal reformats were reviewed. A dose lowering technique was utilized adhering to the principles of ALARA. COMPARISON: Head and neck CTA 01/16/2019. FINDINGS: Focal hypodensity again noted within the right caudate consistent with an acute infarct. Visualized i ntracranial internal carotid arteries, distal vertebral arteries, and basilar artery are widely paten t. There is no significant stenosis, occlusion, or aneurysm seen within the bilateral ACAs, MCAs, or certified meeting professional. The major dural venous sinuses are patent. Stable prominence of the basilar tip measuring 3 mm. Moderate calcified plaque again noted within the bilateral carotid siphons. The aortic arch and proximal great vessels are widely patent. There is no significant stenosis, occ lusion, or dissection identified within the bilateral common carotid, internal carotid, or vertebral arteries. There is a calcified granuloma within the left lung apex, unchanged. No pneumothorax. IMPRESSION: 1. No significant stenosis, occlusion, or aneurysm within the [place]. 2. No significant stenosis, occlusion, or dissection identified within the carotid or vertebral arter ies.. 3. Focal hypodensity again noted within the right caudate consistent with an acute infarct. ACT 112: Negative or not required by law. Electronically signed by: Marcin Bauer M.D. 01/20/2023 3:44 PM
[2023-01-20] MEDS ORDERED: PHARMACIST DISCHARGE MED REC CONSULT PRN (16:10)
--- NOTE | 2023-01-20 16:10 | History & Physical Report ---
Date of Service January 20, 2023 Assessment & Plan (1) Stroke: Plan: -Admit to the PCU on tele -Currently stable -Patient developed flashing lights and pain behind her right eye at approximately 10 am yesterday, progressed to left mouth drooping, slurred speech, and imbalance when ambulating -Took 325 mg Aspirin this am prior to arrival -Currently with left moth doop, slurred speech, and balance instability at this time -CT and CTA of the head show an acute infarct of the right caudate region -Outside the window for TNK -Will allow for permissive HTN overnight, could consider restarting antihypertensives tomorrow if stable and Neurology is agreeable -Will obtain MRI of the brain wo con and TTE for further evaluation -Patient already took 325 mg Aspirin this am, if she does not pass her speech evaluation tomorrow may need to start Aspirin per rectum until she can safely swallow -Cannot give plavix at this time as she will need to be evaluated by speech first, and Plavix cannot be given rectally -Q4h neuro checks, fall and aspiration precautions -Patient has been on low dose atorvastatin, can likely increase dose based on lipid panel tomorrow -AM A1C and lipid panel -Will keep NPO until speech eval tomorrow -Light LR overnight while NPO for hydration -Hold chemical DVT PPX tonight until MRI tomorrow -AM CBC, CMP, Mag, PT/INR, A1C, and lipid panel (2) COPD (chronic obstructive pulmonary disease): Plan: -Stable on RA -Continue prn albuterol (3) Spondylosis of cervical region without myelopathy or radiculopathy: Plan: -Has chronic neck pain -Prn Tylenol suppository for pain 1-5 and will order a lidocaine patch (4) CAD (coronary artery disease): Plan: -Continue aspirin and statin when able to resume po intake (5) Hypertension: Plan: -Currently stable at 172/93 -Allow permissive HTN overnight -Can consider restarting antihypertensives tomorrow if stable and ok from Neurology's standpoint (6) Hyperlipidemia: Plan: -Dose statin based on am lipid panel tomorrow (7) Dry eye syndrome: Plan: -Continue home eye drops (8) Anxiety: Plan: -Continue lexapro when able to resume po intake (9) GERD (gastroesophageal reflux disease): Plan: -Continue famotidine when when able to resume po intake Plan The patient was discussed with Dr. Smith at the time of the admission History of Present Illness Chief Complaint: stroke-like symptoms Primary Care Provider: Trini Luu is an 82 year old female with a PMH significant for HTN, HLD, CAD (crescendo angina pectoris, RCA GORDY covering 2 lesions, December 2019), migraines who presented to the [facility] ED on 01/20 for ongoing Neurologic symptoms over the past 24 hours. In the ED vitals were stable. Labs including CBC, CMP, and high sen trop were WNL. CT of the head wo con was read as "Focal area of hypodensity within the right caudate lobe consistent with an acute infarct.". CTA of the head/neck was read as "1. No significant stenosis, occlusion, or aneurysm within the [place]. 2. No significant stenosis, occlusion, or dissection identified within the carotid or vertebral arteries.. 3. Focal hypodensity again noted within the right caudate consistent with an acute infarct.". The patient reportedly took a full dose aspirin this am prior to arrival to the ED. She was not a TNK candidate as she was unfortunately well outside the window of the onset of her symptoms. Prior to admission the patient was given a 500 mL NSS bolus. At the time of the exam the patient was sitting in bed in no acute distress with her sitting bedside, history was obtained from both. The patient had been in her normal state of health until approximately 10 am yesterday when she started to develop what she described as a left ocular headache. She states that she first started to develop flashing lights in her left eye, then pain behind the left eye and on the left side of her face. She states that these symptoms felt very similar to migraines she has had in the past so she did not think anything of them. She took tylenol and continued with her day. She did notice that she was having some balance issues walking around their home in the mid afternoon. Her came home around 5:30 pm and thought the left side of her face appeared to be drooping. Her states that the patient was not acting herself last night while watching TV and the patient states she did not sleep well. This am the patient still had left-sided facial drooping and balance issues while walking, prompting them to come to the ED. The patient normally takes 81 mg Aspirin daily, she took 325 mg of Aspirin prior to coming to the ED today. The patient currently denies headache, changes in vision, hearing, taste, and smell, paresthesias, unilateral weakness of the BL upper and lower extremities, difficulty swallowing, chest pain, SOB, abd pain, nausea, vomiting, diarrhea, dysuria, hematuria, melena, LE swelling, and recent falls or trauma. We discussed code status, at this time she wishes to be a full code. If she could not make decisions herself she would want her to make them for her. Please refer to Dr. Smith's attestation for any changes to the treatment plan Allergies Allergy/AdvReac Type Severity Reaction Status Date / Time Sulfa (Sulfonamide Allergy Severe ITCHY, Verified 01/20/23 16:15 Antibiotics) CAN'T SLEEP Home Medications Medication Instructions Recorded Confirmed Type albuterol sulfate 90 mcg/actuation 1 - 2 puffs inhalation Q4H PRN 09/04/19 01/20/23 Rx aerosol inhaler (ProAir HFA) shortness of breath #8.5 grams aspirin 81 mg tablet,delayed 81 mg PO QAM 30 days #30 tabs 12/29/19 01/20/23 Rx release nitroglycerin 0.4 mg sublingual 0.4 mg sublingual UD PRN chest 12/29/19 01/20/23 Rx tablet (Nitrostat) pain 30 days #100 tabs cyclosporine 0.05 % eye drops in a 1 drp ophthalmic (eye) Q12H 07/01/20 01/20/23 History dropperette (Restasis) cholecalciferol (vitamin D3) 50 50 mcg PO QAM 12/09/20 01/20/23 History mcg (2,000 unit) capsule escitalopram oxalate 20 mg tablet 20 mg PO QAM 12/09/20 01/20/23 History (Lexapro) famotidine 20 mg tablet (Pepcid) 20 mg PO HS 12/09/20 01/20/23 History metoprolol succinate 25 mg 25 mg PO HS 05/11/21 01/20/23 History tablet,extended release 24 hr atorvastatin 20 mg tablet 20 mg PO HS 11/23/21 01/20/23 History erythromycin 5 mg/gram (0.5 %) eye 0.5 inch ophthalmic (eye) TID PRN 11/23/21 01/20/23 History ointment WHEN EYE LID BECOMES IRRITATED amoxicillin 500 mg tablet 2,000 mg PO DIRECTED PRN 01/20/23 01/20/23 History prophylaxis PRIOR TO DENTAL APPT. aspirin 325 mg tablet 325 mg PO DIRECTED 01/20/23 01/20/23 History valsartan 80 mg tablet 80 mg PO QAM 01/20/23 01/20/23 History Past Med/Surg History Medical History Anxiety CAD (coronary artery disease) December 28, 2019 post PCI/distal RCA/95% stenosis - GORDY placed Cerebral arterial aneurysm Stable on imaging December 2018= "Unchanged dilation of the basilar tip measuring 3 mm is stable dating back to 2011." Dx'ed approximately 15 years ago. Follows only with PCP for monitoring- no surgical intervention needed COPD (chronic obstructive pulmonary disease) Breathing stablechronic SPENCE. No oxygen needed Dry eye Left eyelid does stick with blinking at times- chronic. 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- instructed patient to update surgeon- pt currently on abx and following with derm Spinal stenosis, lumbar region with neurogenic claudication Surgical History History of cardiac catheterization 2019 - CP - [place] - 1 stent History of colonoscopy History of esophagogastroduodenoscopy (EGD) History of heart artery stent 12/28/19 History of lumpectomy of left breast x 2 History of reverse total replacement of right shoulder joint (~01/06/21) Hx of cataract extraction left S/P hysterectomy with oophorectomy Family History Father Alcoholism Colorectal cancer Hypertension Mother Alzheimer disease Grandfather (Paternal) Myocardial infarction Other Family history non-contributory No family history of adverse response to anesthesia Denies family history of Ovarian cancer Prostate cancer Breast cancer Social History Smoking Status: Never smoker Second Hand Exposure: No; Do You Dip or Chew Tobacco: No; Hx Alcohol Use: Yes Alcohol type: beer Hx Substance Use: No Preferred Language: Kiswahili Communication Ability: Effective Hearing Ability: Use of Hearing Aid Pan Washer Hand Required: No Beliefs That Will Affect Care: None marital status: Current Living Situation: Spouse Current Living Situation Comment: Lives with in independent part of [facility] current occupational status: retired Other Information That Helps Us Care for You: No Feels Safe at Home: Yes Safety Concerns: Feels Safe At This Time Dental Care, Regularly: Yes Physical Activity Frequency: 5-6 Times per Week Seatbelt Use: always Sunscreen Use: Yes Assistive Devices: Glasses and Hearing Aid - Bilateral Physical Exam Physical Exam: Physical Exam: General: In no acute distress, stated age, well-nourished, non-toxic appearing HEENT: atraumatic, currently with dropping of the left side of her mouth, no scleral icterus, pupils around round, symmetrical, and reactive to light, moist mucus membranes, trachea midline, no thyromegaly Chest/Pulm: No respiratory distress, symmetrical chest expansion, clear breath sounds throughout Cardiac: RRR, no murmurs noted Abdomen: Negative for ascites and bruising, normoactive bowel sounds, soft, non-tender to palpation throughout Musculoskeletal: Symmetrical and without signs of acute trauma, upper and lower extremities with full ROM, no atrophy, spasticity, or flaccidity Extremities: Radial, dorsalis pedis, and posterior tibial pulses are intact and symmetrical, no edema noted in the BL LE's Skin: Warm, dry, no rashes , lesions, or scars noted Neuro: Alert and oriented to person, place, month, year, and president, left sided mouth drooping noted, CN II-XII tested and intact baddies her left mouth droop, BL finger to nose test negative, negative pronator drift, patient leans to the left when having her sit up for lung exam, no tremors noted Psych: No acute distress, calm and cooperative during the exam Results & Data Results & Data Vital Signs (Past 12 Hours) Vital Signs Temp Pulse Pulse Resp BP BP Pulse Ox 01/20/23 14:44 63 19 180/87 H 95 01/20/23 14:04 66 01/20/23 13:54 36.6 C 75 18 160/91 H 96 O2 Del Method 01/20/23 14:44 01/20/23 14:04 01/20/23 13:54 Room Air Laboratory Results Abnormal lab results 01/20/23 01/20/23 Range/Units 14:28 14:28 RDW Std Deviation 48.1 H (36.4-46.3) fL Lymph # (Auto) 1.04 L (1.2-3.4) K/uL Chloride 108 H (98-107) mmol/L BUN/Creatinine Ratio 22.5 H (10-20) Glucose 106 H (70-99(Fasting)) mg/dl Diagnostic Findings Head CT 01/20/23 14:[address] DOSE: HISTORY: Altered mental status. neuro deficit, acute stroke suspected TECHNIQUE: Multiaxial CT images of the head were performed without the use of intravenous contrast. Automated exposure control was utilized for this study. A dose lowering technique was utilized adhering to the principles of ALARA. Comparison: Head CT 01/16/2019. Findings: The paranasal sinuses and mastoid air cells are clear. The calvarium and skull base are intact. Mild atrophy and microvascular ischemic changes are again noted. There is no mass, hematoma, midline shift. Focal area of hypodensity involving the body and head of the right caudate lobe best seen on images 14 through 16. This is consistent with an acute infarct Impression: Focal area of hypodensity within the right caudate lobe consistent with an acute infarct. ACT 112: Negative or not required by law. Electronically signed by: Marcin Bauer M.D. 01/20/2023 3:38 PM Head CTA 01/20/23 14:23 HEAD & NECK CTA HISTORY: Altered mental status. neuro deficit, acute stroke suspected TECHNIQUE: Multiaxial CT images of the head were performed following the intravenous administration of contrast to evaluate the major cerebral vessels. Multiaxial CT images of the neck were also performed following the intravenous administration of contrast to evaluate the major cervical vessels. 3D/MIP images were also obtained. Sagittal and coronal reformats were reviewed. A dose lowering technique was utilized adhering to the principles of ALARA. COMPARISON: Head and neck CTA 01/16/2019. FINDINGS: Focal hypodensity again noted within the right caudate consistent with an acute infarct. Visualized intracranial internal carotid arteries, distal vertebral arteries, and basilar artery are widely patent. There is no significant stenosis, occlusion, or aneurysm seen within the bilateral ACAs, MCAs, or car seat coverer. The major dural venous sinuses are patent. Stable prominence of the basilar tip measuring 3 mm. Moderate calcified plaque again noted within the bilateral carotid siphons. The aortic arch and proximal great vessels are widely patent. There is no significant stenosis, occlusion, or dissection identified within the bilateral common carotid, internal carotid, or vertebral arteries. There is a calcified granuloma within the left lung apex, unchanged. No pneumothorax. IMPRESSION: 1. No significant stenosis, occlusion, or aneurysm within the [place]. 2. No significant stenosis, occlusion, or dissection identified within the carotid or vertebral arteries.. 3. Focal hypodensity again noted within the right caudate consistent with an acute infarct. ACT 112: Negative or not required by law. Electronically signed by: Marcin Bauer M.D. 01/20/2023 3:44 PM Neck CTA 01/20/23 14:23 HEAD & NECK CTA HISTORY: Altered mental status. neuro deficit, acute stroke suspected TECHNIQUE: Multiaxial CT images of the head were performed following the intravenous administration of contrast to evaluate the major cerebral vessels. Multiaxial CT images of the neck were also performed following the intravenous administration of contrast to evaluate the major cervical vessels. 3D/MIP images were also obtained. Sagittal and coronal reformats were reviewed. A dose lowering technique was utilized adhering to the principles of ALARA. COMPARISON: Head and neck CTA 01/16/2019. FINDINGS: Focal hypodensity again noted within the right caudate consistent with an acute infarct. Visualized intracranial internal carotid arteries, distal vertebral arteries, and basilar artery are widely patent. There is no significant stenosis , occlusion, or aneurysm seen within the bilateral ACAs, MCAs, or car seat coverer. The major dural venous sinuses are patent. Stable prominence of the basilar tip measuring 3 mm. Moderate calcified plaque again noted within the bilateral carotid siphons. The aortic arch and proximal great vessels are widely patent. There is no significant stenosis, occlusion, or dissection identified within the bilateral common carotid, internal carotid, or vertebral arteries. There is a calcified granuloma within the left lung apex, unchanged. No pneumothorax. IMPRESSION: 1. No significant stenosis, occlusion, or aneurysm within the [place]. 2. No significant stenosis, occlusion, or dissection identified within the carotid or vertebral arteries.. 3. Focal hypodensity again noted within the right caudate consistent with an acute infarct. ACT 112: Negative or not required by law. Electronically signed by: Marcin Bauer M.D. 01/20/2023 3:44 PM ECG Additional Comments: Normal sinus rhythm Low voltage QRS Cannot rule out Anterior infarct , age undetermined Abnormal ECG When compared with ECG of 14-DEC-2020 12:10, Minimal criteria for Anterior infarct are now Present Code Status & VTE Plan Code Status Full code Supervising Physician Co-Signing Physician Notes I personally saw and examined the patient. I verified all rosales points and agree with Cy Wright PA-C with the following exceptions and/or additions: 82 year old female presents to the ER with left facial droop and slurred speech started yesterday around 10am. She does not possible left eyelid drooping is chronic but facial droop and speech are new. O/E A&Ox3, HS RRR, no murmurs, Chest CTAB, Abdo SNT, left sided facial droop, slurring speech, able to say "ka", "ma", "la" without problems, no receptive/expressive dysphasia A/P Acute CVA - allow permissive hypertension, aspirin taken at home, start clopidogrel/statin pending speech evaluation, TTE with bubble study, MRI brain PG Care Time/CCT Total # of Minutes Spent Total Time Spent with Patient: Total time spent is greater than 50% in coordination of care (as documented) at patient's floor/unit and/or counseling patient: Coding [place] [address] INT INP/OBS CARE 3/75MIN Patient Type Established Medical Decision Making High Complexity Diagnoses Stroke I63.9 CVA mechanism: unspecified COPD (chronic obstructive pulmonary disease) J44.9 Spondylosis of cervical region without myelopathy or radiculopathy M47.812 CAD (coronary artery disease) I25.10 Hypertension I10 Hyperlipidemia E78.5 Dry eye syndrome H04.129 Anxiety F41.9 GERD (gastroesophageal reflux disease) K21.9 (1) Stroke CVA mechanism: unspecified Qualified Code(s): I63.9 - Cerebral infarction, unspecified
[2023-01-20 16:41] LABS: Prothrombin Time 10.9 Seconds (9.0-12.0)
[2023-01-20] MEDS ORDERED: LIDOCAINE 5% 1 PATCH TD STA (16:46)
[2023-01-20] MEDS: LACTATED RINGER'S 1,000 ML IV SCH (17:12)
[2023-01-20] MEDS ORDERED: ACETAMINOPHEN 650 MG SUPP PR PRN (17:13)
[2023-01-20] MEDS ORDERED: ALBUTEROL HFA 8 GM INHALER INH PRN (19:04)
[2023-01-20] MEDS ORDERED: FAMOTIDINE 20 MG in SYRINGE 3 ML IV PRN (19:04)
[2023-01-20] MEDS ORDERED: ERYTHROMYCIN OP OINT 5 MG/GM 3.5 GM TUBE OP PRN (19:04)
[2023-01-20] MEDS ORDERED: ARTIFICIAL TEARS OP PRN (19:15)
[2023-01-20] MEDS ORDERED: ACETAMINOPHEN 1,000 MG/100 ML VIAL IV PRN (20:50)
[2023-01-20] MEDS ORDERED: ACETAMINOPHEN 1000 MG/100 ML IV IV ONE (21:08)
[2023-01-20] MEDS: LORazepam 2 MG/1 ML VIAL IV PRN (23:01)
--- NOTE | 2023-01-21 00:15 | Magnetic Resonance Report ---
Exam(s): MRI HEAD Without Contrast EXAM: MR Head Without Intravenous Contrast CLINICAL HISTORY: Reason for exam: stroke. TECHNIQUE: Magnetic resonance images of the head/brain without intravenous contrast in multiple planes. COMPARISON: No relevant prior studies available. FINDINGS: Brain: Right basal ganglia infarct. Mild ischemic microangiopathy. No hemorrhage. Ventricles: Unremarkable. No ventriculomegaly. Bones/joints: Unremarkable. Sinuses: Unremarkable as visualized. No acute sinusitis. Mastoid air cells: Unremarkable as visualized. No mastoid effusion. Orbits: Unremarkable as visualized. IMPRESSION: Right basal ganglia infarct Communications: Call Doctor Stroke Electronically signed by: Genaro De La Rosa MD 01/21/23 00:14 AM
[2023-01-21] MEDS: LACTATED RINGER'S 1,000 ML IV SCH (05:42)
[2023-01-21 07:41] LABS: Basophils # (auto) 0.07 K/uL (0-0.2); Basophils % (auto) 1.3 %; Eosinophils # (auto) 0.24 K/uL (0-0.50); Eosinophils % (auto) 4.4 %; Hematocrit (blood only) 44.3 % (37.0-47.0); Hemoglobin 14.8 g/dl (12.0-16.0); Immature Granulocytes # (auto) 0.02 K/uL (0.01-0.20); Immature Granulocytes % (auto) 0.4 %; Lymphocytes % (auto) 18.5 %; Mean Corpuscular Hemoglobin 32.2 pg (25.0-34.0); Mean Corpuscular Hgb Conc 33.4 g/dL (32.0-36.0); Mean Corpuscular Volume 96.3 fL (80.0-100.0); Monocytes # (auto) 0.45 K/uL (0.11-0.59); Monocytes % (auto) 8.3 %; Neutrophils # (auto) 3.63 K/uL (1.40-6.50); Neutrophils % (auto) 67.1 %; Platelet Count 149 K/uL (130-400); RDW Standard Deviation 49.1 fL (36.4-46.3); White Blood Count 5.41 K/ul (4.8-10.8)
[2023-01-21 07:54] LABS: Albumin Globulin Ratio 1.5 (0.9-2); BUN Creatinine Ratio 20.6 (10-20); Bilirubin,Total 0.9 mg/dl (0.2-1.0); Chol HDL Ratio 3.1 (0-5); Creatinine Clr Calc Pharmacy 49.6 ml/min; Est GFR (African American) 93.8 ml/min; Est GFR (Non-African American) 80.9 ml/min; Globulin 2.6 gm/dl (2.5-4.0); Magnesium 2.1 mg/dl (1.7-2.4); Potassium 4.2 mmol/L (3.5-5.1); Total Protein 6.6 gm/dl (6.0-8.3)
[2023-01-21 07:58] LABS: Prothrombin Time 11.2 Seconds (9.0-12.0)
[2023-01-21 08:36] LABS: Estimated Average Glucose 123 mg/dl; Hemoglobin A1C 5.9 % (4.5-5.6)
--- NOTE | 2023-01-21 10:18 | Neurology Consultation ---
Date of Consultation January 21, 2023 Assessment & Plan (1) Acute CVA (cerebrovascular accident): (2) Weakness on left side of face: (3) Dysarthria: (4) Abnormality of gait following cerebrovascular accident: (5) Migraine with aura: (6) Hypertension: (7) Cerebral arterial aneurysm: Plan patient has had an acute right basal ganglia area CVA January 19 resulting in some dysarthria, left lower facial droop, and abnormal gait. she was already on 81 mg aspirin prior to this event. 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 Her only new weaknesses in the lower half of the face at the corner of the mouth consistent with the stroke. She has an upgoing toe on the left but no roseline left arm or leg weakness compared to the right. Patient has a history of migraine headaches (aura followed by headache) which are stable. She had a migraine on January 19. She has a history of hypertension which is likely the etiology of this small vessel ischemic stroke. She has a stable 3 mm basilar tip aneurysm ( stable since 2011) - this needs no further assessment or treatment. Recommendations: 1. Recommend clopidogrel 75 mg daily (and keep off aspirin). 2. Control blood pressure as you are doing, aiming for a mean arterial pressure of approximately 100. 3. Total cholesterol of 158 on low-dose atorvastatin is excellent. Continue atorvastatin 20 mg daily. given her age and low cholesterol she would not be a high dose statin candidate ( increases cerebral bleeding risk). 4. Physical, occupational, and speech therapy consult. 5. Echocardiogram overall, I spent a total of 75 minutes with this case including review of records, review of CT and MRI films, direct evaluation the patient at bedside, report generation, and discussion of the case with the patient and RN at bedside, and Dr. Caldwell, including differential diagnosis and treatment options. History of Present Illness Reason for Consultation: Patient is an 82-year-old, who I was asked to see at the request of Cy Wright PA-C, for neurologic consultation regarding stroke. Requesting Physician: Cy Wright PA-C Attending Physician: Steven Caldwell MD History of Present Illness this patient has a history of coronary artery disease post stent in December of 2020, longstanding hypertension and dyslipidemia, mild mitral regurgitation, COPD, history of Graves disease, restless leg syndrome, history of breast cancer in 2013 post left lumpectomy and radiation therapy ( no recurrence ), and restless leg syndrome. Patient has a history of a 3 mm basilar tip aneurysm stable since 2011. Patient tells me that she had surgery on both upper eyelids to "lower" them because of the retraction that happen with her thyroid eye disease in the past. For the last 10 years ( since her breast cancer treatment ) she has had migrainous headaches starting out with flashing lights for a few seconds followed by a headache that could last hours. This has been occurring less frequently over time and about once every 4-5 months (in the last year or 2). The patient has been on 81 mg aspirin tablet prior to admission. On January 19, around 10 o'clock in the morning, the patient noted some flashing in her left eye for several seconds. She took Tylenol and she did have a generalized headache of a steady pressure most of the rest of that day. She noted no photophobia or sonophobia and no nausea or vomiting. However, she likes to lay down in a dark room when this happens and this helps the headache. When her came home around 5:00 p.m. he noted that she had slurred speech and a left facial droop at the corner of the mouth. When the symptoms persisted on January 20, she ended up coming to the emergency room at 1354, with a temperature 36.6, pulse 75 and regular, respiratory rate 18, blood pressure 160/91, and O2 saturation 96%. She had a left facial droop and slurred speech noted on exam. CBC was unremarkable. Chem profile was unremarkable as well. CT scan of the head showed hypodensity in the right basal ganglia area. CT angiography of the head and neck showed no significant vascular stenoses or anomalies except for a stable 3 mm basilar tip aneurysm. MRI of the brain showed a right basal ganglia area acute stroke of a medium- sized with some generalized atrophy and old small vessel ischemic disease of mild to moderate nature. This morning the patient is about the same. Blood pressure is 158/90. CBC and Chem profile were unremarkable and hemoglobin A1c was 5.9. Triglycerides 121 and total cholesterol 158. Nursing reports no new issues and she has been in normal sinus rhythm in the 60s overnight. Allergies Allergy/AdvReac Type Severity Reaction Status Date / Time Sulfa (Sulfonamide Allergy Severe ITCHY, Verified 01/20/23 16:15 Antibiotics) CAN'T SLEEP Home Medications Medication Instructions Recorded Confirmed Type albuterol sulfate 90 mcg/actuation 1 - 2 puffs inhalation Q4H PRN 09/04/19 01/20/23 Rx aerosol inhaler (ProAir HFA) shortness of breath #8.5 grams aspirin 81 mg tablet,delayed 81 mg PO QAM 30 days #30 tabs 12/29/19 01/20/23 Rx release nitroglycerin 0.4 mg sublingual 0.4 mg sublingual UD PRN chest 12/29/19 01/20/23 Rx tablet (Nitrostat) pain 30 days #100 tabs cyclosporine 0.05 % eye drops in a 1 drp ophthalmic (eye) Q12H 07/01/20 01/20/23 History dropperette (Restasis) cholecalciferol (vitamin D3) 50 50 mcg PO QAM 12/09/20 01/20/23 History mcg (2,000 unit) capsule escitalopram oxalate 20 mg tablet 20 mg PO QAM 12/09/20 01/20/23 History (Lexapro) famotidine 20 mg tablet (Pepcid) 20 mg PO HS 12/09/20 01/20/23 History metoprolol succinate 25 mg 25 mg PO HS 05/11/21 01/20/23 History tablet,extended release 24 hr atorvastatin 20 mg tablet 20 mg PO HS 11/23/21 01/20/23 History erythromycin 5 mg/gram (0.5 %) eye 0.5 inch ophthalmic (eye) TID PRN 11/23/21 01/20/23 History ointment WHEN EYE LID BECOMES IRRITATED amoxicillin 500 mg tablet 2,000 mg PO DIRECTED PRN 01/20/23 01/20/23 History prophylaxis PRIOR TO DENTAL APPT. aspirin 325 mg tablet 325 mg PO DIRECTED 01/20/23 01/20/23 History valsartan 80 mg tablet 80 mg PO QAM 01/20/23 01/20/23 History Patient History Medical History Anxiety CAD (coronary artery disease) December 28, 2019 post PCI/distal RCA/95% stenosis - GORDY placed Cerebral arterial aneurysm Stable on imaging December 2018= "Unchanged dilation of the basilar tip measuring 3 mm is stable dating back to 2011." Dx'ed approximately 15 years ago. Follows only with PCP for monitoring- no simon rgical intervention needed COPD (chronic obstructive pulmonary disease) Breathing stablechronic SPENCE. No oxygen needed Dry eye Left eyelid does stick with blinking at times- chronic. 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- instructed patient to update surgeon- pt currently on abx and following with derm Spinal stenosis, lumbar region with neurogenic claudication Surgical History History of cardiac catheterization 2019 CP - [place] - 1 stent History of colonoscopy History of esophagogastroduodenoscopy (EGD) History of heart artery stent 12/28/19 History of lumpectomy of left breast x 2 History of reverse total replacement of right shoulder joint (~01/06/21) Hx of cataract extraction left S/P hysterectomy with oophorectomy Family History Father , age 97 Alcoholism Colorectal cancer Hypertension Mother , age 56 with senile dementia of the Alzheimer's type Alzheimer disease Grandfather (Paternal) Myocardial infarction Other Family history non-contributory No family history of adverse response to anesthesia Denies family history of Ovarian cancer Prostate cancer Breast cancer Social History (Updated 01/21/23 @ 10:06 by Leodan Mancini MD) Smoking Status: Never smoker Second Hand Exposure: No; Do You Dip or Chew Tobacco: No; Hx Alcohol Use: Yes Alcohol type: beer Alcohol Intake Frequency: 4 or More x per/Week Alcohol Intake Frequency Comment: drinks "1/2" beer per day Hx Substance Use: No Preferred Language: Malian Communication Ability: Effective Hearing Ability: Use of Hearing Aid Skirt Maker Required: No Beliefs That Will Affect Care: None marital status: Current Living Situation: Spouse Current Living Situation Comment: Lives with in independent part of [facility] current occupational status: retired current occupation: former dietitian Feels Safe at Home: Yes Dental Care, Regularly: Yes Physical Activity Frequency: 5-6 Times per Week Seatbelt Use: always Sunscreen Use: Yes Assistive Devices: Glasses and Hearing Aid - Bilateral Review of Systems Constitutional: no fever, no fatigue and no weakness Eyes: no diplopia, no eye pain and no worsening vision Ear, Nose, Mouth, Throat: no ear pain, no tinnitus, no hearing loss, no dizziness, no snoring, no hoarseness and no dysphagia Respiratory: no cough and no dyspnea Cardiovascular: no chest pain, no palpitations and no lightheadedness Gastrointestinal: no abdominal pain, no nausea and no vomiting Genitourinary: no dysuria, no urinary frequency and no urinary incontinence Musculoskeletal: no back pain, no neck pain, no radicular pain, no joint pain and no myalgia Integumentary: no rash and no lesions Neurologic: + gait abnormality, + headache(s) and + abnormal speech; no loca lized weakness, no generalized weakness, no tingling, no numbness, no tremor(s), no abnormal movements, no confusion and no memory loss Psychiatric: no depression, no irritability, no anxiety, no difficulty concentrating, no confusion and no hallucinations Endocrine: no fatigue and no flushing Hematologic / Lymphatic: no easy bleeding and no easy bruising Allergy / Immunological: no urticaria and no problem reported Exam (Neuro) Physical Exam: The patient is right-handed. The patient is awake, alert, and attentive. Speech is dysarthric without aphasia. The patient can name objects, repeat phrases, and has normal spontaneous speech. Mentation and thought processes are intact, with orientation to person, place and time, and normal fund of knowledge. Attention and concentration are normal. Mood and affect are normal and appropriate. General appearance and grooming are normal. Short and long-term memory are intact. Pupils are 4 mm bilaterally and reactive to light. Extraocular eye muscles are intact without nystagmus. Visual acuity and visual dobson seem normal grossly to confrontation. There are no deficits to sensation in the face in all 3 distributions of the fifth cranial nerve bilaterally. Corneal reflexes are positive bilaterally. Although the patient seems to have some ptosis left greater than right side, there is no ptosis and she can open her eyes symmetrically with the upper lids above the pupils but below the tops of the cornea. There is no asymmetry and this is likely old. There is an obvious facial droop at the corner of the mouth on the left and she cannot raise that well with voluntary smile. Hearing is decreased bilaterally. Palate moves well without asymmetry. There is normal sternocleidomastoid and trapezius (shoulder shrug) strength bilaterally. Tongue is midline with good strength bilaterally. Neck has a full range of motion without discomfort. There are no cervical bruits bilaterally. There are no cranial or ocular bruits. Heart is without murmur. There is a regular rhythm and rate. Cervical, thoracic, and lumbar spine are nontender to palpation. Gait is narrow based But she limps some favoring the left leg and needs a walk er for support. Stance is reasonable eyes open. With outstretched arms there is no drift. There are no resting, postural, or action tremors. There is no ataxia with finger to nose testing. There is good facility in the hands. No other abnormal involuntary movements are noted. Motor strength is 5/5 diffusely in the arms bilaterally including deltoids, biceps, triceps, brachioradialis, wrist flexors and extensors, clinical program coordinator, and intrinsic hand muscles. Motor strength is 5/5 diffusely in the legs bilaterally including hip flexors, quadriceps, hamstrings, gastrocnemius, tibialis anterior, tibialis posterior, and Peroneii muscles. Toe extensors are normal and there is good bulk in the extensor digitorum brevis muscles bilaterally. The limbs have good tone without rigidity or spasticity. There is no atrophy noted in the muscles. Muscle bulk is normal, there is no tenderness to palpation, no myotonia to percussion, and no fasciculations seen. Sensory examination is intact to touch and pin throughout all 4 limbs diffusely. Reflexes are 2/4 in the biceps, triceps, brachioradialis, quadriceps, and Achilles tendons bilaterally. There is no clonus bilaterally. Toes are downgoing with plantar stimulation On the right and upgoing to plantar stimulation on the left. Peripheral pulses are present and of normal quality distally in all 4 limbs. There is no peripheral edema noted in the limbs. Results & Data Vital Signs (Past 12 Hours) Vital Signs Temp Pulse Pulse Resp BP Pulse Ox O2 Del Method 01/21/23 07:43 36.8 C 80 18 158/90 H 92 Room Air 01/21/23 03:00 36.6 C 59 L 18 137/80 94 Room Air 01/20/23 23:05 64 01/20/23 23:00 36.6 C 60 16 161/82 H 93 Room Air PG Care Time/CCT Total # of Minutes Spent Total Time Spent with Patient: Total time spent is greater than 50% in coordination of care (as documented) at patient's floor/unit and/or counseling patient: Coding Level of Care Code 69736 INT INP/OBS CARE 3/75MIN Diagnoses Acute CVA (cerebrovascular accident) I63.9 Weakness on left side of face R29.810 Dysarthria R47.1 Abnormality of gait following cerebrovascular accident I69.398; R26.9 Migraine with aura G43.109 Hypertension I10 Cerebral arterial aneurysm I67.1
[2023-01-21] MEDS ORDERED: CLOPIDOGREL BISULFATE 75 MG TAB PO ONE (10:40)
--- NOTE | 2023-01-21 11:25 | Pharmacy Report ---
- Date of Service January 21, 2023 - Pharmacy CVA/TIA Medication Review Medications to Prevent Stroke handout has been added to the patients discharge packet. Antiplatelet(s) * Clopidogrel 75mg PO daily Cholesterol * "Moderate" intensity statin atorvastatin 20 mg daily ordered per recommendations of Neuro consult - not a "high" intensity candidate due to age, LDL and concerns for hemorrhagic transformation (see Neuro note) DVT Prophylaxis * Mechanical DVT prophylaxis ordered - SCDs knee Therapeutic Anticoagulation * No history of Afib/Aflutter noted Type 2 Diabetes * Patient does not have T2DM and A1c = 5.9%
[2023-01-21] MEDS: ATORVASTATIN 20 MG TAB PO SCH (12:47)
--- NOTE | 2023-01-21 13:48 | Hospitalist Progress Note ---
Date of Service January 21, 2023 Assessment & Plan (1) Stroke: Plan: Admitted on account of dysarthria and facial droop Found to have acute right basal ganglia CVA on MRI, etiology probably ischemic from poorly controlled BP On ASA at home Evaluated by Neurology, they recommend stopping ASA Start Plavix 75mg daily and continue Atorvastatin 20mg daily Physical therapy, speech therapy occupational therapy Continue good BP control (2) COPD (chronic obstructive pulmonary disease): Plan: -Stable on RA -Continue prn albuterol (3) Spondylosis of cervical region without myelopathy or radiculopathy: Plan: -Has chronic neck pain -Prn Tylenol suppository for pain 1-5 and will order a lidocaine patch (4) CAD (coronary artery disease): Plan: -Continue aspirin and statin when able to resume po intake (5) Hypertension: Plan: will re start her BP meds (6) Hyperlipidemia: Plan: -Dose statin based on am lipid panel tomorrow (7) Dry eye syndrome: Plan: -Continue home eye drops (8) Anxiety: Plan: -Continue lexapro when able to resume po intake (9) GERD (gastroesophageal reflux disease): Plan: -Continue famotidine when when able to resume po intake Plan awaiting PT eval Admission and Anticipated Discharge Date Admission Date: January 20, 2023 Subjective patient seen and examined, family by the bed side, still has some facial droop Review of Systems Review of Systems: All systems reviewed are negative, apart from the ones contained in the history. Physical Exam Physical Exam: The patient is awake, alert and oriented 3, well developed and well nourished, normocephalic and atraumatic, lying in bed and in no acute distress. HEENT--PERRL, EOMI, mucous membranes and oropharynx mildly dry Neck--supple. No JVD. No bruits. Thyroid normal, trachea midline, no adenopathy. Heart--normal S1 and S2. No murmurs, rubs or gallops. Lungs--clear bilaterally, no respiratory distress, no accessory muscle use. Abdomen--normal bowel sounds and soft. Mild epigastric and left sided abdominal pain Extremities--no cyanosis or clubbing. No edema. Dermatologic--normal skin turgor, normal color, no abnormal lymph nodes, no rash. Neurologic--facial droop Rheumatologic--normal range of motion. Psychiatric--normal affect. Results & Data Results & Data Vital Signs (Past 12 Hours) Vital Signs Temp Pulse Resp BP Pulse Ox O2 Del Method 01/21/23 11:05 97.9 F 76 17 172/92 H 94 Room Air 01/21/23 10:33 Room Air 01/21/23 07:43 98.2 F 80 18 158/90 H 92 Room Air 01/21/23 03:00 97.9 F 59 L 18 137/80 94 Room Air PG Care Time/CCT Total # of Minutes Spent Total Time Spent with Patient: Total time spent is greater than 50% in coordination of care (as documented) at patient's floor/unit and/or counseling patient: Coding Level of Care Code 63725 SUB INP/OBS CARE 2/35MIN Diagnoses Stroke I63.9 CVA mechanism: unspecified COPD (chronic obstructive pulmonary disease) J44.9 Spondylosis of cervical region without myelopathy or radiculopathy M47.812 CAD (coronary artery disease) I25.10 Hypertension I10 Hyperlipidemia E78.5 Dry eye syndrome H04.129 Anxiety F41.9 GERD (gastroesophageal reflux disease) K21.9 Time Spent (min) 35 (1) Stroke CVA mechanism: unspecified Qualified Code(s): I63.9 - Cerebral infarction, unspecified
[2023-01-21] MEDS: VALSARTAN 80 MG TAB PO SCH (16:53)
--- NOTE | 2023-01-21 17:49 | XCELERA ---
[id number]
[2023-01-21] MEDS ORDERED: METOPROLOL SUCC 25MG EXT REL TAB PO SCH (21:00)
[2023-01-21] MEDS: LORazepam 2 MG/1 ML VIAL IV PRN (22:41)
[2023-01-22 07:23] LABS: Basophils # (auto) 0.07 K/uL (0-0.2); Basophils % (auto) 1.1 %; Eosinophils # (auto) 0.37 K/uL (0-0.50); Eosinophils % (auto) 5.8 %; Hematocrit (blood only) 45.3 % (37.0-47.0); Hemoglobin 15.3 g/dl (12.0-16.0); Immature Granulocytes # (auto) 0.02 K/uL (0.01-0.20); Immature Granulocytes % (auto) 0.3 %; Lymphocytes # (auto) 1.05 K/uL (1.2-3.4); Lymphocytes % (auto) 16.4 %; Mean Corpuscular Hemoglobin 32.3 pg (25.0-34.0); Mean Corpuscular Hgb Conc 33.8 g/dL (32.0-36.0); Mean Corpuscular Volume 95.8 fL (80.0-100.0); Mean Platelet Volume 10.8 fL (9.4-12.4); Monocytes # (auto) 0.58 K/uL (0.11-0.59); Neutrophils # (auto) 4.32 K/uL (1.40-6.50); Neutrophils % (auto) 67.4 %; Platelet Count 146 K/uL (130-400); RDW Coefficient of Variation 13.8 % (11.5-14.5); RDW Standard Deviation 48.5 fL (36.4-46.3); Red Blood Count 4.73 M/uL (4.20-5.40); White Blood Count 6.41 K/ul (4.8-10.8)
[2023-01-22 07:39] LABS: Albumin Globulin Ratio 1.5 (0.9-2); BUN Creatinine Ratio 20.3 (10-20); Creatinine Clr Calc Pharmacy 45.6 ml/min; Est GFR (African American) 86.8 ml/min; Est GFR (Non-African American) 74.9 ml/min; Globulin 2.7 gm/dl (2.5-4.0); Potassium 4.3 mmol/L (3.5-5.1); Total Protein 6.7 gm/dl (6.0-8.3)
[2023-01-22 07:41] LABS: Prothrombin Time 11.2 Seconds (9.0-12.0)
[2023-01-22] MEDS: ATORVASTATIN 20 MG TAB PO SCH (08:37)
[2023-01-22] MEDS ORDERED: CLOPIDOGREL BISULFATE 75 MG TAB PO SCH (09:00)
[2023-01-22] MEDS ORDERED: ESCITALOPRAM OXALATE 20 MG TAB PO SCH (09:00)
[2023-01-22] MEDS ORDERED: FAMOTIDINE 20 MG TAB PO PRN (09:44)
[2023-01-22] MEDS: VALSARTAN 80 MG TAB PO SCH (09:51)
--- NOTE | 2023-01-22 13:31 | Hospitalist Progress Note ---
Date of Service January 22, 2023 Assessment & Plan (1) Stroke: Plan: Admitted on account of dysarthria and facial droop Found to have acute right basal ganglia CVA on MRI, etiology probably ischemic from poorly controlled BP On ASA at home Evaluated by Neurology, they recommend stopping ASA Start Plavix 75mg daily and continue Atorvastatin 20mg daily Physical therapy, speech therapy occupational therapy Continue good BP control (2) COPD (chronic obstructive pulmonary disease): Plan: -Stable on RA -Continue prn albuterol (3) Spondylosis of cervical region without myelopathy or radiculopathy: Plan: -Has chronic neck pain -Prn Tylenol suppository for pain 1-5 and will order a lidocaine patch (4) CAD (coronary artery disease): Plan: -Continue aspirin and statin when able to resume po intake (5) Hypertension: Plan: will re start her BP meds (6) Hyperlipidemia: Plan: -Dose statin based on am lipid panel tomorrow (7) Dry eye syndrome: Plan: -Continue home eye drops (8) Anxiety: Plan: -Continue lexapro when able to resume po intake (9) GERD (gastroesophageal reflux disease): Plan: -Continue famotidine when when able to resume po intake Plan Home with home PT Admission and Anticipated Discharge Date Admission Date: January 20, 2023 Subjective patient seen and examined, says she wants to go home with home PT Review of Systems Review of Systems: All systems reviewed are negative, apart from the ones contained in the history. Physical Exam Physical Exam: The patient is awake, alert and oriented 3, well developed and well nourished, normocephalic and atraumatic, lying in bed and in no acute distress. HEENT--PERRL, EOMI, mucous membranes and oropharynx mildly dry Neck--supple. No JVD. No bruits. Thyroid normal, trachea midline, no adenopath y. Heart--normal S1 and S2. No murmurs, rubs or gallops. Lungs--clear bilaterally, no respiratory distress, no accessory muscle use. Abdomen--normal bowel sounds and soft. Mild epigastric and left sided abdominal pain Extremities--no cyanosis or clubbing. No edema. Dermatologic--normal skin turgor, normal color, no abnormal lymph nodes, no rash. Neurologic--facial droop Rheumatologic--normal range of motion. Psychiatric--normal affect. Results & Data Results & Data Vital Signs (Past 12 Hours) Vital Signs Temp Pulse Pulse Resp BP Pulse Ox O2 Del Method 01/22/23 11:38 97.9 F 70 19 138/79 95 Room Air 01/22/23 10:34 73 01/22/23 07:36 97.9 F 79 20 147/81 H 96 Room Air 01/22/23 03:26 98.1 F 78 16 156/83 H 95 Room Air PG Care Time/CCT Total # of Minutes Spent Total Time Spent with Patient: Total time spent is greater than 50% in coordination of care (as documented) at patient's floor/unit and/or counseling patient: Coding Level of Care Code 61349 SUB INP/OBS CARE 2/35MIN Diagnoses Stroke I63.9 CVA mechanism: unspecified COPD (chronic obstructive pulmonary disease) J44.9 Spondylosis of cervical region without myelopathy or radiculopathy M47.812 CAD (coronary artery disease) I25.10 Hypertension I10 Hyperlipidemia E78.5 Dry eye syndrome H04.129 Anxiety F41.9 GERD (gastroesophageal reflux disease) K21.9 Time Spent (min) 35 (1) Stroke CVA mechanism: unspecified Qualified Code(s): I63.9 - Cerebral infarction, unspecified
--- NOTE | 2023-01-22 13:59 | Discharge Summary ---
Date of Service January 22, 2023 Admission HPI Per Admitting Provider Bell is an 82 year old female with a PMH significant for HTN, HLD, CAD (crescendo angina pectoris, RCA GORDY covering 2 lesions, December 2019), migraines who presented to the [facility] ED on 01/20 for ongoing Neurologic symptoms over the past 24 hours. In the ED vitals were stable. Labs including CBC, CMP, and high sen trop were WNL. CT of the head wo con was read as "Focal area of hypodensity within the right caudate lobe consistent with an acute infarct.". CTA of the head/neck was read as "1. No significant stenosis, occlusion, or aneurysm within the redding of [place]. 2. No significant stenosis, occlusion, or dissection identified within the carotid or vertebral arteries.. 3. Focal hypodensity again noted within the right caudate consistent with an acute infarct.". The patient reportedly took a full dose aspirin this am prior to arrival to the ED. She was not a TNK candidate as she was unfortunately well outside the window of the onset of her symptoms. Prior to admission the patient was given a 500 mL NSS bolus. At the time of the exam the patient was sitting in bed in no acute distress with her sitting bedside, history was obtained from both. The patient had been in her normal state of health until approximately 10 am yesterday when she started to develop what she described as a left ocular headache. She states that she first started to develop flashing lights in her left eye, then pain behind the left eye and on the left side of her face. She states that these symptoms felt very similar to migraines she has had in the past so she did not think anything of them. She took tylenol and continued with her day. She did notice that she was having some balance issues walking around their home in the mid afternoon. Her came home around 5:30 pm and thought the left side of her face appeared to be drooping. Her states that the patient was not acting herself last night while watching TV and the patient states she did not sleep well. This am the patient still had left-sided facial drooping and balance issues while walking, prompting them to come to the ED. The patient normally takes 81 mg Aspirin daily, she took 325 mg of Aspirin prior to coming to the ED today. The patient currently denies headache, changes in vision, hearing, taste, and smell, paresthesias, unilateral weakness of the BL upper and lower extremities, difficulty swallowing, chest pain, SOB, abd pain, nausea, vomiting, diarrhea, dysuria, hematuria, melena, LE swelling, and recent falls or trauma. We discussed code status, at this time she wishes to be a full code. If she could not make decisions herself she would want her to make them for her. Principal Diagnosis acute stroke Discharge Exam The patient is awake, alert and oriented 3, well developed and well nourished, normocephalic and atraumatic, lying in bed and in no acute distress. HEENT--PERRL, EOMI, mucous membranes and oropharynx mildly dry Neck--supple. No JVD. No bruits. Thyroid normal, trachea midline, no adenopathy. Heart--normal S1 and S2. No murmurs, rubs or gallops. Lungs--clear bilaterally, no respiratory distress, no accessory muscle use. Abdomen--normal bowel sounds and soft. Mild epigastric and left sided abdominal pain Extremities--no cyanosis or clubbing. No edema. Dermatologic--normal skin turgor, normal color, no abnormal lymph nodes, no rash. Neurologic--facial droop Rheumatologic--normal range of motion. Psychiatric--normal affect. 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, etiology probably ischemic from poorly controlled BP On ASA at home Evaluated by Neurology, they recommend stopping ASA Start Plavix 75mg daily and continue Atorvastatin 20mg daily Physical therapy, speech therapy occupational therapy Continue good BP control (2) COPD (chronic obstructive pulmonary disease): -Stable on RA -Continue prn albuterol (3) Spondylosis of cervical region without myelopathy or radiculopathy: -Has chronic neck pain -Prn Tylenol suppository for pain 1-5 and will order a lidocaine patch (4) CAD (coronary artery disease): -Continue aspirin and statin when able to resume po intake (5) Hypertension: will re start her BP meds (6) Hyperlipidemia: -Dose statin based on am lipid panel tomorrow (7) Dry eye syndrome: -Continue home eye drops (8) Anxiety: -Continue lexapro when able to resume po intake (9) GERD (gastroesophageal reflux disease): -Continue famotidine when when able to resume po intake Plan Home with home PT at [facility] Total Time Total Time Spent Total Time Spent (In Minutes): 35 Discharge Plan Discharge Items Patient Disposition: Personal Long Term Reason For Visit: ACUTE STROKE Discharge Diagnosis: acute stroke Activity: Resume your previous activity Non-emergency contact: Primary Care Provider and Neurologist Call non-emergency contact if: you have any medication questions Follow-up/Referrals: Trini Sorensen [Primary Care Provider] - Diet: Regular Addtl Attending Provider Instructions: please make arrangements for outpatient physical therapy at [facility] Pending Studies at Discharge: No Stand-Alone Forms: My Raft[employer], Smoking Cessation, Medications to Prevent Stroke Skilled Items Patient informed of condition?: Yes DNR: No Discharge Level of Care: Other Communicable Disease: No Discharge Prognosis: Stable Lines: None Urinary Catheter: No Medications and DC Order Prescriptions: New clopidogrel 75 mg Tablet 75 mg PO QAM 30 Days Qty: 30 0RF Continued Restasis 0.05 % dropperette 1 drp ophthalmic (eye) Q12H albuterol sulfate [ProAir HFA] 90 mcg/actuation HFA aerosol inhaler 1 - 2 puffs INH Q4H PRN (Reason: shortness of breath) Qty: 8.5 3RF nitroglycerin [Nitrostat] 0.4 mg Tablet, Sublingual 0.4 mg sublingual UD PRN (Reason: chest pain) 30 Days Qty: 100 1RF famotidine [Pepcid] 20 mg tablet 20 mg PO HS escitalopram oxalate [Lexapro] 20 mg tablet 20 mg PO QAM cholecalciferol (vitamin D3) 50 mcg (2,000 unit) capsule 50 mcg PO QAM Rx Instructions: with heaviest meal of the day metoprolol succinate 25 mg Tablet Extended Release 24 Hr 25 mg PO HS erythromycin 5 mg/gram (0.5 %) Ointment 0.5 inch OPHTHALMIC (EYE) TID PRN (Reason: WHEN EYE LID BECOMES IRRITATED) Rx Instructions: both eyes atorvastatin 20 mg tablet 20 mg PO HS valsartan 80 mg tablet 80 mg PO QAM Discontinued aspirin 81 mg Tablet,Delayed Release (Dr/Ec) 81 mg PO QAM 30 Days Qty: 30 3RF Rx Instructions: PER PT "DID NOT TAKE 01/20/23, D/T TAKE 325 MG OF ASA LAST EVENING AND THIS AM, 01/20/23". aspirin 325 mg Tablet 325 mg PO DIRECTED Rx Instructions: PER PT "TOOK 1-325 MG TAB LAST EVENING,01/19/23 AND THIS AM,01/20/23" amoxicillin 500 mg tablet 2,000 mg PO DIRECTED PRN (Reason: prophylaxis PRIOR TO DENTAL APPT.) Rx Instructions: ONE HOUR PRIOR TO DENTAL PROCEDURE Discharge Orders: Discharge Order (Routine); Ordered 01/22/23 Ordered By: Steven Caldwell Admission Data Admit Date/Time: 01/20/23 16:10 Attending Provider: Steven Caldwell Admit Provider: Surya Smith Primary Care Provider: Trini Sorensen Other Providers: Surya Smith ; Sohail Walker Coding Level of Care Code 44306 INP/OBS DISCH >30 MIN Diagnoses Stroke I63.9 CVA mechanism: unspecified COPD (chronic obstructive pulmonary disease) J44.9 Spondylosis of cervical region without myelopathy or radiculopathy M47.812 CAD (coronary artery disease) I25.10 Hypertension I10 Hyperlipidemia E78.5 Dry eye syndrome H04.129 Anxiety F41.9 GERD (gastroesophageal reflux disease) K21.9 Time Spent (min) 35
--- NOTE | 2023-01-22 22:51 | Electrocardiogram Report ---
Test Reason : Blood Pressure : / mmHG Vent. Rate : 065 BPM Atrial Rate : 065 BPM P-R Int : 130 ms QRS Dur : 086 ms QT Int : 400 ms P-R-T Axes : 083 017 050 degrees QTc Int : 416 ms Normal sinus rhythm Low voltage QRS Cannot rule out Anterior infarct , age undetermined Abnormal ECG When compared with ECG of 14-DEC-2020 12:10, Minimal criteria for Anterior infarct are now Present Confirmed by Sylvester Victoria ([id number]) on 01/22/2023 10:51:23 PM Referred By: Confirmed By:Sylvester Victoria
== END 2023-01-22 14:46 | disposition home or self-care (01) | DRG 66 ==
LOC: ED 13:53 → SUATTDRO 16:10 → 2S 16:10